=== PATIENT | female | born 1945 | race Caucasian/White ===

== ENCOUNTER 2016-07-01 17:13 | Inpatient (IN) | payer MEDICARE, MEDICAID ==
[~2016-07-01] VITALS: Ht 162.6 cm; Wt 92.1 kg
[~2016-07-01 17:13] MED LIST: ASCO100083 PO; ASP81CT PO; ASPI-586 PO; ATN50T; ATOR40TA PO; ATOR40TA70 PO; CIPR500T4 PO; CLPD75T PO; DIAZ5TAB3; DIAZ5TAB3 PO; DIAZ5TAB49; GARL1CAP7 PO; GARLIC CAPSULE PO; HYDR-3812 PO; METO-272 PO; METO-274 PO; METO100T5 PO; MTR500T PO; NAPR550T PO; NTR.4SL SL; OMEG-11 PO; OMG1KC PO; PRM25T PO; PRV20T; ROSU10TA12 PO; RT-COMBINH IH; SERT25TA PO; SERT25TA5 PO; VITA400T9 PO
--- OUTSIDE RECORDS SUMMARY | 2016-07-01 17:19 | XMS REPORT | Continuity of Care Document ---
Author Author [facility] Organization [facility] Address Unknown Phone Unavailable Care Team Providers Care Farm Equipment Operator Name Role Phone TORSTEN AQUINO DO PCP Insurance Providers Payer Name Policy Number Subscriber Name Relationship Wps Medicare [id number] CrocheronDc E 18 Self / Same As Patient Medicaid [place] [id number] Dc Ingram 18 Self / Same As Patient Advance Directives Directive Response Recorded Date/Time Advance Directives Yes 10/24/14 4:41pm Health Care Power of Development Executive No 10/24/14 4:41pm Organ Donor Yes 10/24/14 4:41pm Resuscitation Status Full Code 10/24/14 4:41pm Problems No known problems or medical conditions. Medications Medication Dose Route Sig Days/Qty Instructions Order Date Discontinued Date Status Aspirin 81 Mg PO BEDTIME 08/05/08 Active Clopidogrel Bisulfate 75 Mg PO DAILY 08/05/08 Active Fish Oil 1,000 Mg PO TWICE A DAY 08/05/08 10/27/14 Discontinued Nitroglycerin 0.4 Mg SL NEEDED PRN CHEST PAIN 08/05/08 Active Rosuvastatin Calcium 1 Each PO BEDTIME 01/13/12 10/24/14 Discontinued Metoprolol Succinate (Toprol Xl) 100 Mg PO DAILY 01/13/12 Active Diazepam (Valium) 2.5 Mg PO BEDTIME PRN ANXIETY TAKES 1/2 (5MG) TABLET 01/13/12 Active Ipratropium/Albuterol Sulfate 1 Puff IH GIVE EVERY 8 HRS ON SCHEDULE PRN SHORTNESS OF BREATH 01/13/12 Active Atorvastatin Calcium 40 Mg PO BEDTIME 1 Qty 10/24/14 10/27/14 Discontinued Sertraline HCl 25 Mg PO DAILY 1 Qty 10/24/14 10/27/14 Discontinued Atorvastatin Calcium 40 Mg PO BEDTIME 10/27/14 Active [place]-3S/Dha/Epa/Fish Oil 1,200 Mg PO TWICE A DAY 10/27/14 Active Sertraline Hcl 25 Mg PO 1500 10/27/14 Active Vitamin E Mixed 400 Unit PO BEDTIME 10/27/14 Active Ascorbic Acid 1,000 Mg PO BEDTIME 10/27/14 Active [Garlic Capsule] 1 Tab PO BEDTIME 10/27/14 Active Metronidazole 500 Mg PO THREE TIMES A DAY 21 Qty 10/28/14 Active Ciprofloxacin 500 Mg PO TWICE A DAY 14 Qty 10/28/14 Active Promethazine Hcl 25 Mg PO THREE TIMES A DAY PRN NAUSEA 21 Qty 10/28/14 Active Social History Social History Problem Response Recorded Date/Time Alcohol Use Denies Use 10/24/2014 4:43pm Recreational Drug Use No 10/24/2014 4:43pm Recent Foreign Travel No 10/24/2014 5:35pm Recent Infectious Disease Exposure No 10/24/2014 4:43pm Hospitalization with Isolation Denies 10/28/2014 1:32pm Smoking Status Former Smoker 10/24/2014 4:46pm Query Response Start Date Stop Date Smoking Status Former Smoker Hospital Discharge Instructions Patient Instructions Physician Instructions Plan of Care/Instructions/FU: Patient to be seen in office this Monday morning at 11 a.m. Patient to be given diverticulitis diet. Patient to continue with her home medicines and antibiotics Activity as Tolerated: Yes Discharge Diet: Other Diet (Diverticulitis diet) Care Plan Patient Instructions:: Patient to be seen in office this Monday morning at 11 a.m.Patient to be given diverticulitis diet.Patient to continue with her home medicines and antibiotics Plan of Care Discharge Date 10/28/14 11:48am Disposition 30 STILL A PATIENT Instructions/Education Provided Acute Abdominal Pain (ED) Diverticulitis Diet (ED) Diverticulitis Diet (DC) Diverticulitis Diet (GEN) Prescriptions See Medications Section Referrals FRANCINEABDIAZIZ Sarah (Unspecified) 11/18/14 Address: [address] [place] [id number] Reason(s) for Referral: 9:30 AM TORSTEN AQUINO DO (Unspecified) 10/31/14 Address: [place] [phone] Reason(s) for Referral: 11:00 AM Functional Status No functional status results. Allergies, Adverse Reactions, Alerts Allergen Type Severity Reaction Status Last Updated Morphine Allergy Unknown Active 08/05/08 Immunizations Name Given Type Date of Pneumonia Vaccine 08/26/13 Historical Vital Signs Acute Vital Signs Vital Response Date/Time Temperature (Fahrenheit) 98.1 degrees F (97.6 - 99.5) Temperature (Calculated Celsius) 36.25685 degrees C (36.4 - 37.5) Temperature Source Temporal Pulse Rate (adult) 110 bpm (60 - 90) Respiratory Rate 20 bpm (12 - 24) O2 Sat by Pulse Oximetry 90 % (88 - 100) Blood Pressure 152/86 mm Hg Pain Pain Intensity 2 Height (Feet) 5 feet Height (Inches) 4.00 inches Height (Calculated Centimeters) 162.876980 cm Weight (Pounds) 182 pounds Weight (Calculated Grams) 92299.812 gm Weight (Calculated Kilograms) 82.640198 kilograms Calculated BMI 31.24 Results Laboratory Results Test Name Result Units Flags Reference Collection Date/Time Result Date/ Time Comments White Blood Count 10.5 10^3/uL 4.3-11.0 10/28/2014 4:38am 10/28/2014 5: 07am Red Blood Count 4.47 10^6/uL 4.35-5.85 10/28/2014 4:38am 10/28/2014 5: 07am Hemoglobin 12.2 G/DL 11.5-16.0 10/28/2014 4:38am 10/28/2014 5:07am Hematocrit 37 % 35-52 10/28/2014 4:3810/28/2014 5:07am Mean Corpuscular Volume 84 FL 80-99 10/28/2014 4:3810/28/2014 5: 07am Mean Corpuscular Hemoglobin 27 PG 25-34 10/28/2014 4:3810/28/2014 5: 07am Mean Corpuscular Hemoglobin Concent 33 G/DL 32-36 10/28/2014 4:38 5:07am Red Cell Distribution Width 14.7 % H 10.0-14.5 10/28/2014 4:382014 5:07am Platelet Count 341 10^3/uL 130-400 10/28/2014 4:3810/28/2014 5:07am Mean Platelet Volume 10.1 FL 7.4-10.4 10/28/2014 4:10/28/2014 5: 07am Neutrophils (%) (Auto) 77 % H 42-75 10/25/2014 5:10/25/2014 5:50am Lymphocytes (%) (Auto) 14 % 12-44 10/25/2014 5:10/25/2014 5:50am Monocytes (%) (Auto) 8 % 0-12 10/25/2014 5:10/25/2014 5:50am Eosinophils (%) (Auto) 1 % 0-10 10/25/2014 5:10/25/2014 5:50am Basophils (%) (Auto) 0 % 0-10 10/25/2014 5:10/25/2014 5:50am Neutrophils # (Auto) 7.7 X 10^3 1.8-7.8 10/25/2014 5:10/25/2014 5: 50am Lymphocytes # (Auto) 1.4 X 10^3 1.0-4.0 10/25/2014 5:10/25/2014 5: 50am Monocytes # (Auto) 0.8 X 10^3 0.0-1.0 10/25/2014 5:10/25/2014 5: 50am Eosinophils # (Auto) 0.1 10^3/uL 0.0-0.3 10/25/2014 5:10/25/2014 5 :50am Basophils # (Auto) 0.0 10^3/uL 0.0-0.1 10/25/2014 5:12am 10/25/2014 5: 50am Urine Color YELLOW 10/24/2014 3:20pm 10/24/2014 3:40pm Urine Clarity CLEAR 10/24/2014 3:20pm 10/24/2014 3:40pm Urine pH 6 5-9 10/24/2014 3:20pm 10/24/2014 3:40pm Urine Specific [place] 1.010 * 1.016-1.022 10/24/2014 3:20pm 2014 3:40pm Urine Protein NEGATIVE NEGATIVE 10/24/2014 3:20pm 10/24/2014 3:40pm Urine Glucose (UA) NEGATIVE NEGATIVE 10/24/2014 3:pm 10/24/2014 3: 40pm Urine RBC (Auto) NEGATIVE NEGATIVE 10/24/2014 3:20pm 10/24/2014 3: 40pm Urine Ketones NEGATIVE NEGATIVE 10/24/2014 3:pm 10/24/2014 3:40pm Urine Nitrite NEGATIVE NEGATIVE 10/24/2014 3:20pm 10/24/2014 3:40pm Urine Bilirubin NEGATIVE NEGATIVE 10/24/2014 3:20pm 10/24/2014 3: 40pm Urine Urobilinogen NORMAL MG/DL NORMAL 10/24/2014 3:20pm 10/24/2014 3: 40pm Urine Leukocyte Esterase 3+ * NEGATIVE 10/24/2014 3:pm 10/24/2014 3: 40pm Urine RBC NONE /HPF 10/24/2014 3:20pm 10/24/2014 3:40pm Urine WBC 5-10 /HPF * 10/24/2014 3:20pm 10/24/2014 3:40pm Urine Bacteria TRACE /HPF 10/24/2014 3:20pm 10/24/2014 3:40pm Urine Squamous Epithelial Cells 0-2 /HPF 10/24/2014 3:20pm 2014 3:40pm Urine Crystals NONE /LPF 10/24/2014 3:20pm 10/24/2014 3:40pm Urine Casts NONE /LPF 10/24/2014 3:20pm 10/24/2014 3:40pm Urine Mucus NEGATIVE /LPF 10/24/2014 3:20pm 10/24/2014 3:40pm Urine Culture Indicated YES 10/24/2014 3:20pm 10/24/2014 3:40pm WBC>5 Sodium Level 139 MMOL/L 135-145 10/28/2014 4:3010/28/2014 5:35am Potassium Level 3.8 MMOL/L 3.6-5.0 10/28/2014 4:3010/28/2014 5:35am Chloride Level 110 MMOL/L H 98-107 10/28/2014 4:3010/28/2014 5:35am Carbon Dioxide Level 21 MMOL/L 21-32 10/28/2014 4:3010/28/2014 5: 35am Blood Urea Nitrogen 3 MG/DL L 7-18 10/28/2014 4:3010/28/2014 5:35am Creatinine 0.73 MG/DL 0.60-1.30 10/28/2014 4:3010/28/2014 5:35am BUN/Creatinine Ratio 4 10/28/2014 4:3010/28/2014 5:35am Estimat Glomerular Filtration Rate > 60 10/28/2014 4:302014 5:35am GFR INTERPRETIVE DATA UNITS FOR ESTIMATED GFR (eGFR): mL/min/1.73 M2 REFERENCE RANGE FOR ESTIMATED GFR (eGFR) eGFR NORMAL eGFR >60 MODERATELY DECREASED eGFR 30-59 SEVERLY DECREASED eGFR 15-29 KIDNEY FAILURE <15 (OR DIALYSIS) Glucose Level 132 MG/DL H 70-105 10/28/2014 4:3010/28/2014 5:35am Calcium Level 8.4 MG/DL L 8.5-10.1 10/28/2014 4:3010/28/2014 5:35am Total Bilirubin 0.3 MG/DL 0.1-1.0 10/28/2014 4:3010/28/2014 5:35am Alkaline Phosphatase 77 U/L 40-136 10/28/2014 4:3010/28/2014 5:35am Aspartate Amino Transf (AST/SGOT) 18 U/L 5-34 10/28/2014 4:302014 5:35am Alanine Aminotransferase (ALT/SGPT) 16 U/L 0-55 10/28/2014 4:3010/28 5:35am Total Protein 5.7 G/DL L 6.4-8.2 10/28/2014 4:30am 10/28/2014 5:35am Albumin 3.0 G/DL L 3.2-4.5 10/28/2014 4:30am 10/28/2014 5:35am Stool Occult Blood Immunoassay POSITIVE * NEGATIVE 10/25/2014 6:30pm 7:17pm Procedures No known history of procedures. Encounters Encounter Location Date/Time Discharged Inpatient Via [facility] 10/24/14 3:45pm
[2016-07-01] MEDS ORDERED: NS IV 1000 ML 1,000 ML IV ONE (17:51)
[2016-07-01 18:07] LABS: BASOPHILS % (AUTO) 0 % (0-10); EOSINOPHILS # (AUTO) 0.1 10^3/uL (0.0-0.3); EOSINOPHILS % (AUTO) 0 % (0-10); LYMPHOCYTES # (AUTO) 0.8 X 10^3 (1.0-4.0); LYMPHOCYTES % (AUTO) 5 % (12-44); MEAN CORPUSCULAR HEMOGLOBIN 28 PG (25-34); MEAN CORPUSCULAR HGB CONC 34 G/DL (32-36); MEAN CORPUSCULAR VOLUME 83 FL (80-99); MEAN PLATELET VOLUME 10.4 FL (7.4-10.4); MONOCYTES # (AUTO) 0.9 X 10^3 (0.0-1.0); MONOCYTES % (AUTO) 6 % (0-12); NEUTROPHILS # (AUTO) 13.8 X 10^3 (1.8-7.8); NEUTROPHILS % (AUTO) 89 % (42-75); PLATELET COUNT 346 10^3/uL (130-400); RED BLOOD COUNT 5.05 10^6/uL (4.35-5.85); RED CELL DISTRIBUTION WIDTH 15.5 % (10.0-14.5); WHITE BLOOD COUNT 15.6 10^3/uL (4.3-11.0)
[2016-07-01] MEDS ORDERED: ACETAMINOPHEN 500 MG TAB (TYLENOL) PO ONE (18:15)
[2016-07-01] MEDS ORDERED: ONDANSETRON 4 MG/2 ML (SDV) Z0FRAN IVP ONE (18:15)
[2016-07-01] MEDS ORDERED: IBUPROFEN 800 MG (MOTRIN) TAB PO ONE (18:15)
[2016-07-01 18:17] LABS: INR 1.1 (0.8-1.4); PROTHROMBIN TIME PATIENT 13.7 SEC (12.2-14.7)
[2016-07-01 18:24] LABS: BAND NEUTROPHILS 12 %; LYMPHOCYTES % (MANUAL) 6 %; NEUTROPHILS % (MANUAL) 77 %
[2016-07-01 18:24] LABS: BILIRUBIN,URINE NEGATIVE (NEGATIVE); KETONES,URINE NEGATIVE (NEGATIVE); LEUKOCYTE ESTERASE ,URINE 1+ (NEGATIVE); NITRITE,URINE NEGATIVE (NEGATIVE); PH,URINE 6 (5-9); PROTEIN,URINE NEGATIVE (NEGATIVE); UROBILINOGEN,URINE NORMAL (NORMAL)
[2016-07-01 18:25] LABS: BASOPHILS % (MANUAL) 1 %; EOSINOPHILS % (MANUAL) 0 %
[2016-07-01 18:28] LABS: ALANINE AMINOTRANSFERASE 37 U/L (0-55); ALBUMIN 3.9 G/DL (3.2-4.5); ANION GAP 11 MMOL/L (5-14); ASPARTATE AMINO TRANSFERASE 39 U/L (5-34); BILIRUBIN,TOTAL 0.4 MG/DL (0.1-1.0); BLOOD UREA NITROGEN 15 MG/DL (7-18); BUN/CREATININE RATIO 13; CALCIUM 8.7 MG/DL (8.5-10.1); CARBON DIOXIDE 21 MMOL/L (21-32); CHLORIDE 104 MMOL/L (98-107); CREATINE KINASE 109 U/L (29-168); CREATININE SERUM 1.15 MG/DL (0.60-1.30); GFR ESTIMATED 46; GLUCOSE 118 MG/DL (70-105); MAGNESIUM 1.4 MG/DL (1.8-2.4); SODIUM 136 MMOL/L (135-145); TOTAL PROTEIN 6.7 G/DL (6.4-8.2)
[2016-07-01 18:34] LABS: TROPONIN I < 0.30 NG/ML (<0.30)
--- NOTE | 2016-07-01 19:00 | Diagnostic Imaging Report ---
INDICATION: Fever and shortness of breath COMPARISON: 06/06/2013 FINDINGS: Upright portable view of the chest is obtained. Heart size is enlarged but unchanged. There is no pulmonary vascular congestion. No pneumothorax or pleural fluid is suspected. There are findings suggestive of COPD which have increased from the prior study. No focal pneumonia is suspected. IMPRESSION: Increasing findings of COPD. Stable cardiomegaly without failure. No acute cardiopulmonary abnormality is suspected. Dictated by: Dictated on workstation # [id number]
--- NOTE | 2016-07-01 19:03 | ED General ---
General Chief Complaint: Abdominal/GI Problems Stated Complaint: VOMITING/DIARRHEA/FEVER Nursing Triage Note: N/V/D ET FEVER OF [address] 1400 TODAY. PRODUCTIVE COUGH STARTING YESTERDAY. Nursing Sepsis Screen: Possible Sepsis Risk Source of Information: Patient History of Present Illness Time Seen by Provider: 17:50 Initial Comments PT ARRIVES VIA POV FROM HOME C/O FEVER OF 105 AT 1400 TODAY STATES SHE STARTED FEELING BAD YESTERDAY BUT IS MUCH WORSE TODAY STARTED WITH A PRODUCTIVE COUGH YESTERDAY TODAY HAS FELT SHORT OF BREATH AND BEGAN RUNNING A FEVER C/O NAUSEA AND VOMITED X 2 TODAY, DIARRHEA X 2 TODAY C/O LOWER ABDOMINAL/SUPRAPUBIC PAIN HAS CHRONIC URINARY FREQUENCY BUT NO PAIN ON URINATION C/O CHEST TIGHTNESS PT RECENTLY TREATED FOR PRESUMED DIVERTICULITIS /COLITIS WITH CIPRO AND FLAGYL-- FINISHED MEDICATIONS 1 WEEK AGO, AND WAS DOING BETTER. SAW DR. AQUINO 1 WEEK AGO AND HE CLEARED HER TO START ON SOFT DIET AT THAT TIME. HAS HAD DIVERTICULITIS IN THE PAST, NO TESTS DONE FOR THIS RECENT EPISODE. PCP: DR. AQUINO Allergies and Home Medications Allergies Coded Allergies: morphine (Verified Allergy, Unknown, 08/05/08) Home Medications Aspirin 81 Mg Tablet.dr 81 MG PO DAILY (Reported) Atorvastatin Calcium 40 Mg Tablet 40 MG PO HS (Reported) Clopidogrel Bisulfate 75 Mg Tab 75 MG PO DAILY (Reported) Diazepam 5 Mg Tablet 2.5-5 MG PO HS (Reported) TAKES 1/2 TO 1 (5MG) TABLET Garlic 1 Each Capsule 1 CAP PO HS (Reported) Ipratropium/Albuterol Sulfate 14.7 Gm Aer.w.adap 1 PUFF IH TID PRN PRN SHORTNESS OF BREATH (Reported) Metoprolol Succinate 50 Mg Tab.er.24h 50 MG PO HS (Reported) Nitroglycerin 0.4 Mg Subl 0.4 MG SL UD PRN PRN CHEST PAIN (Reported) [place]-3S/Dha/Epa/Fish Oil 1 Each Capsule 1,200 MG PO BID (Reported) Vitamin E Mixed 400 Unit Tablet 400 UNIT PO DAILY (Reported) Constitutional: see HPI fever malaise weakness EENTM: no symptoms reported Respiratory: see HPI cough short of breath Cardiovascular: chest pain Gastrointestinal: see HPI abdominal pain diarrhea loss of appetite nausea vomiting Genitourinary: see HPI frequency Musculoskeletal: no symptoms reportedNo back pain Skin: no symptoms reported Psychiatric/Neurological: No Symptoms ReportedDenies Headache Hematologic/Lymphatic: No Symptoms Reported Immunological/Allergic: no symptoms reported Past Lwwtfko-Afzlaf-Smuhsl Hx Patient Social History Alcohol Use: Denies Use Recreational Drug Use: No Smoking Status: Never a Smoker Former Smoker/When Quit: Mar 24, 2005 Recent Foreign Travel: No Contact w/Someone Who Travel: No Recent Infectious Disease Expo: No Immunizations Up To Date Date of Pneumonia Vaccine: Mar 19, 2015 Date of Influenza Vaccine: Mar 10, 2015 Surgeries HX Surgeries: Yes (CATARACTS) Surgeries: Adenoidectomy, Appendectomy, Coronary Stent, Eye Surgery, Gallbladder, Hysterectomy, Tonsillectomy Respiratory Hx Respiratory Disorders: Yes Respiratory Disorders: COPD Cardiovascular Hx Cardiac Disorders: Yes (stents x5, ) Cardiac Disorders: Coronary Artery Disease, High Cholesterol, Hypertension Neurological Hx Neurological Disorders: No Reproductive System Hx Reproductive Disorders: No Genitourinary Hx Genitourinary Disorders: No Gastrointestinal Hx Gastrointestinal Disorders: Yes Gastrointestinal Disorders: Colitis, Diverticulosis Musculoskeletal Hx Musculoskeletal Disorders: Yes Musculoskeletal Disorders: Arthritis Endocrine Hx Endocrine Disorders: No HEENT HX ENT Disorders: Yes (upper dentures, cataract implants) Cancer Hx Cancer: No Psychosocial Hx Psychiatric Problems: Yes Behavioral Health Disorders: Anxiety, Depression Integumentary HX Skin/Integumentary Disorder: No Blood Transfusions Hx Blood Disorders: No Family Medical History Significant Family History: No Pertinent Family Hx Physical Exam Vital Signs Vital Sign - Last 12Hours 07/01/16 07/01/16 17:45 18:01 Temp 103.5 Pulse 114 Resp 20 B/P 165/75 Pulse Ox 84 O2 Delivery Room Air O2 Flow Rate 4 Capillary Refill : Less Than 3 Seconds General Appearance: Mild Distress (MILDLY DYSPNEIC) Obese HEENT: PERRL/EOMI TMs Normal Normal ENT Inspection Pharynx Normal Neck: Full Range of Motion Normal Inspection Non Tender Supple Respiratory: Decreased Breath Sounds (IN BASES) Other (MILDLY DYSPNEIC, BUT ABLE TO TALK IN FULL SENTENCES. ) Cardiovascular: No Edema No JVD No Murmur Normal Peripheral Pulses Tachycardia (MILD 110'S) Gastrointestinal: Normal Bowel Sounds No Organomegaly No Pulsatile Mass Soft Tenderness (SUPRAPUBIC) Back: No CVA Tenderness Extremity: Normal Capillary Refill Normal Inspection Normal Range of Motion Non Tender No Calf Tenderness No Pedal Edema Neurologic/Psychiatric: Alert Oriented x3 No Motor/Sensory Deficits Normal Mood/Affect commercial lines account assistant II-XII Norm as Tested Skin: Normal Color Warm/Dry Progress/Results/Core Measures Results/Orders Lab Results Laboratory Tests Test 07/01/16 17:55 07/01/16 18:18 Range/Units Activated Partial Thromboplast Time 28 24-35 SEC Alanine Aminotransferase (ALT/SGPT) 37 0-55 U/L Albumin 3.9 3.2-4.5 G/DL Alkaline Phosphatase 99 40-136 U/L Anion Gap 11 5-14 MMOL/L Aspartate Amino Transf (AST/SGOT) 39 H 5-34 U/L B-Type Natriuretic Peptide 85.1 <100.0 PG/ML BUN/Creatinine Ratio 13 Band Neutrophils 12 % Basophils # (Auto) 0.0 0.0-0.1 10^3/uL Basophils % (Manual) 1 % Basophils (%) (Auto) 0 0-10 % Blood Morphology Comment NORMAL Blood Urea Nitrogen 15 7-18 MG/DL Calcium Level 8.7 8.5-10.1 MG/DL Carbon Dioxide Level 21 21-32 MMOL/L Chloride Level 104 98-107 MMOL/L Creatine Kinase MB 1.7 <6.6 NG/ML Creatinine 1.15 0.60-1.30 MG/DL Eosinophils # (Auto) 0.1 0.0-0.3 10^3/uL Eosinophils % (Manual) 0 % Eosinophils (%) (Auto) 0 0-10 % Estimat Glomerular Filtration Rate 46 Glucose Level 118 H 70-105 MG/DL Hematocrit 42 35-52 % Hemoglobin 14.1 11.5-16.0 G/DL INR Comment 1.1 0.8-1.4 Lactic Acid Level 1.7 0.5-2.0 MMOL/L Lymphocytes # (Auto) 0.8 L 1.0-4.0 X 10^3 Lymphocytes % (Manual) 6 % Lymphocytes (%) (Auto) 5 L 12-44 % Magnesium Level 1.4 L 1.8-2.4 MG/DL Mean Corpuscular Hemoglobin 28 25-34 PG Mean Corpuscular Hemoglobin Concent 34 32-36 G/DL Mean Corpuscular Volume 83 80-99 FL Mean Platelet Volume 10.4 7.4-10.4 FL Monocytes # (Auto) 0.9 0.0-1.0 X 10^3 Monocytes % (Manual) 4 % Monocytes (%) (Auto) 6 0-12 % Neutrophils # (Auto) 13.8 H 1.8-7.8 X 10^3 Neutrophils % (Manual) 77 % Neutrophils (%) (Auto) 89 H 42-75 % Platelet Count 346 130-400 10^3/uL Potassium Level 4.0 3.6-5.0 MMOL/L Prothrombin Time 13.7 12.2-14.7 SEC Red Blood Count 5.05 4.35-5.85 10^6/uL Red Cell Distribution Width 15.5 H 10.0-14.5 % Sodium Level 136 135-145 MMOL/L Total Bilirubin 0.4 0.1-1.0 MG/DL Total Creatine Kinase 109 29-168 U/L Total Protein 6.7 6.4-8.2 G/DL Troponin I < 0.30 <0.30 NG/ML White Blood Count 15.6 H 4.3-11.0 10^3/uL Urine Bacteria NONE /HPF Urine Bilirubin NEGATIVE NEGATIVE Urine Casts NONE /LPF Urine Clarity CLEAR Urine Color YELLOW Urine Crystals NONE /LPF Urine Culture Indicated NO Urine Glucose (UA) NEGATIVE NEGATIVE Urine Ketones NEGATIVE NEGATIVE Urine Leukocyte Esterase 1+ H NEGATIVE Urine Mucus NEGATIVE /LPF Urine Nitrite NEGATIVE NEGATIVE Urine Protein NEGATIVE NEGATIVE Urine RBC NONE /HPF Urine RBC (Auto) NEGATIVE NEGATIVE Urine Specific [place] 1.010 L 1.016-1.022 Urine Squamous Epithelial Cells 2-5 /HPF Urine Urobilinogen NORMAL NORMAL MG/DL Urine WBC 2-5 /HPF Urine pH 6 5-9 Micro Results Microbiology 07/01/16 Influenza Types A,B Antigen (RACHEL) - Final, Complete My Orders Orders-ROLAND CLAY DO Saline Lock/Iv-Start (07/01/16 17:51) Ekg Tracing (07/01/16 17:51) O2 (07/01/16 17:51) Monitor-Rhythm Ecg Trace Only (07/01/16 17:51) Cbc With Automated Diff (07/01/16 17:51) Comprehensive Metabolic Panel (07/01/16 17:51) Lactic Acid Analyzer (07/01/16 17:51) Ua Culture If Indicated (07/01/16 17:51) Blood Culture (07/01/16 17:51) Influenza A And B Antigens (07/01/16 17:51) Chest 1 View, Ap/Pa Only (07/01/16 17:51) Saline Lock/Iv-Start (07/01/16 17:51) Ns Iv 1000 Ml (Sodium Chloride 0.9%) (07/01/16 17:51) BNP (07/01/16 17:51) Creatine Kinase (07/01/16 17:51) Creatine Kinase Mb (07/01/16 17:51) Magnesium (07/01/16 17:51) Protime With Inr (07/01/16 17:51) Partial Thromboplastin Time (07/01/16 17:51) Troponin I (07/01/16 17:51) Ondansetron Injection (Zofran Injectio (07/01/16 18:15) Acetaminophen Tablet (Tylenol Tablet) (07/01/16 18:15) Ibuprofen Tablet (Motrin Tablet) (07/01/16 18:15) Manual Differential (07/01/16 17:55) Ct Chest/Abdomen/Pelvis Wo (07/01/16 18:38) Ceftriaxone Injection (Rocephin Injectio (07/01/16 19:45) Ceftriaxone Injection (Rocephin Injectio (07/01/16 19:54) Ns (Ivpb) (Sodium Chloride 0.9% Ivpb Bag (07/01/16 19:54) Medications Given in ED Current Medications Medications Dose Ordered Sig/Michael Route Start Time Stop Time Status Last Admin Dose Admin Acetaminophen 1,000 mg ONCE ONCE PO 07/01/16 18:15 07/01/16 18:16 DC 07/01/16 18:35 1,000 MG Ibuprofen 800 mg ONCE ONCE PO 07/01/16 18:15 07/01/16 18:16 DC 07/01/16 18:35 800 MG Ondansetron HCl 4 mg ONCE ONCE IVP 07/01/16 18:15 07/01/16 18:16 DC 07/01/16 18:18 4 MG Sodium Chloride 1,000 ml @ 0 mls/hr Q0M ONCE IV 07/01/16 17:51 07/01/16 17:53 DC 07/01/16 18:06 1,000 MLS/HR Vital Signs/I&O Vital Sign - Last 12Hours 07/01/16 07/01/16 07/01/16 17:45 18:01 20:00 Temp 103.5 100.5 Pulse 114 95 Resp 20 20 B/P 165/75 120/43 Pulse Ox 84 95 O2 Delivery Room Air Nasal Cannula Nasal Cannula O2 Flow Rate 4 3 Blood Pressure Mean: 105 Progress Note : Progress Note O2 SATS 84% ON ROOM AIR ON ARRIVAL--UP TO 90'S ON O2 AT 4L/NC RESPIRATIONS IMPROVED AFTER NEBULIZER TREATMENTS NO DETERIORATION IN PT'S CONDITION DURING ER STAY ECG Initial ECG Impression Time: 17:57 Initial ECG Rate: 111 Initial ECG Rhythm: S.Tach Initial ECG Impression: Nonspecific Changes Initial ECG Comparisson: Unchanged Diagnostic Imaging Comments CXR--NO ACUTE PROCESS CT CHEST/ABDOMEN/PELVIS--NO ACUTE PROCESS, NON-ACUTE CHANGES --PER RADIOLOGIST REPORT @ 1935 Reviewed: Reviewed by Me Departure Communication Progress Notes 1924--SPOKE WITH DR. AQUINO, ACCEPTS PT FOR ADMIT. Impression Impression: Primary Impression: Sepsis Additional Impressions: BRONCHTIS WITH HYPOXIA ABDOMINAL PAIN WITH NAUSEA/VOMITING/DIARRHEA Chest pain Disposition: ADMITTED INPATIENT Condition: Improved Decision to Admit Reason: Admit from ER (General) Decision to Admit/Date: Jul 01, 2016 Time/Decision to Admit Time: 19:25 Departure-Patient Inst. Referrals: TORSTEN AQUINO DO (PCP/Family) Primary Care Physician ROLAND CLAY DO Jul 01, 2016 19:03
--- NOTE | 2016-07-01 19:27 | Diagnostic Imaging Report ---
PROCEDURE: CT chest, abdomen, and pelvis without contrast. TECHNIQUE: Multiple contiguous axial images were obtained through the chest, abdomen, and pelvis without the use of intravenous contrast. INDICATION: Chest tightness and abdominal pain. COMPARISON: CT abdomen and pelvis of 10/24/2014. CT CHEST FINDINGS: Visualized thyroid is normal. No supraclavicular or axillary lymphadenopathy. Mildly enlarged lower right paratracheal lymph node measuring 1.4 x 1.6 cm. No additional mediastinal lymphadenopathy. No discrete hilar lymphadenopathy or juxtaphrenic lymphadenopathy. Heart is normal in size without pericardial effusion. Coronary artery calcifications and/or stents are present. Normal caliber thoracic aorta with mild atherosclerotic disease. No pleural effusion or pneumothorax. No pulmonary mass, nodule, or consolidation. There is smooth interlobular septal thickening within the lung bases and lung apices, which may be chronic in nature or could represent early interstitial edema. No concerning osseous lesions within the thorax. IMPRESSION: 1. Scattered smooth interlobular septal thickening is likely due to chronic changes. In the appropriate setting, this could be seen with mild interstitial pulmonary edema. 2. No consolidation to indicate pneumonia. 3. Single enlarged mediastinal lymph node is nonspecific and could be reactive in nature. CT ABDOMEN AND PELVIS FINDINGS: Evaluation of the abdominal viscera is limited without IV contrast. No free intraperitoneal air or fluid. The liver, spleen, and pancreas are normal. Cholecystectomy. No biliary duct dilatation. Adrenals are normal. No renal or ureteral calculi. Vascular calcifications are present in the right renal pelvis. Urinary bladder is distended without wall thickening. Status post hysterectomy. Sigmoid and descending colon diverticulosis without diverticulitis. No dilated small bowel loops to indicate obstruction. Normal caliber atherosclerotic aorta. No abdominal or pelvic lymphadenopathy. Small fat-containing umbilical hernia. No concerning osseous lesions in the abdomen or pelvis. Degenerative facet disease is present in the lower lumbar spine. IMPRESSION: 1. No acute process within the abdomen or pelvis. 2. Colonic diverticulosis without diverticulitis. Dictated by: Dictated on workstation # [id number]
[2016-07-01] MEDS ORDERED: NORMAL SALINE IV ONE (19:45)
[2016-07-01] MEDS ORDERED: CEFTRIAXONE IV ONE (19:45)
[2016-07-01] MEDS ORDERED: NS (IVPB) 50 ML ONE (19:54)
[2016-07-01] MEDS ORDERED: cefTRIAXone 1 GM (ROCEPHIN) VIAL ONE (19:54)
[2016-07-01 22:00] VITALS: BP 114/56
[2016-07-01 22:15] VITALS: BP 114/52
[2016-07-01 22:30] VITALS: BP 88/51
[2016-07-01 22:45] VITALS: BP 97/49
[2016-07-01 23:00] VITALS: BP 99/48
[2016-07-01] MEDS: ONDANSETRON 4 MG/2 ML (SDV) Z0FRAN IV PRN (23:11)
[2016-07-01] MEDS ORDERED: NITROGLYCERIN SUBLINGUAL 0.4 MG TAB (NITROSTAT) SL PRN (23:15)
[2016-07-01] MEDS ORDERED: IBUPROFEN 800 MG (MOTRIN) TAB PO PRN (23:15)
[2016-07-01] MEDS ORDERED: 1/2 NS IV SOLUTION 1,000 ML IV SCH (23:15)
[2016-07-01 23:30] VITALS: BP 94/41
[2016-07-02] VITALS (18 sets, daily range): BP systolic 88–172; BP diastolic 48–87
[2016-07-02] MEDS: NS IV 1000 ML 1,000 ML IV SCH ×7 (00:01→16:10)
[2016-07-02] MEDS ORDERED: NS IV 1000 ML 1,000 ML IV SCH (00:45)
[2016-07-02 00:56] LABS: MYOGLOBIN SERUM 111.6 NG/ML (10.0-92.0)
[2016-07-02] MEDS: RT-ALBUTEROL/IPRATROPIUM 3 ML (DUONEB) VIAL INH SCH ×4 (01:50→20:46)
[2016-07-02] MEDS: NOREPINEPHRINE 4 MG in D5W 250 ML IV SCH ×2 (04:14→14:05)
[2016-07-02 05:06] LABS: BASOPHILS % (AUTO) 0 % (0-10); EOSINOPHILS # (AUTO) 0.1 10^3/uL (0.0-0.3); EOSINOPHILS % (AUTO) 1 % (0-10); LYMPHOCYTES # (AUTO) 2.2 X 10^3 (1.0-4.0); LYMPHOCYTES % (AUTO) 24 % (12-44); MEAN CORPUSCULAR HEMOGLOBIN 28 PG (25-34); MEAN CORPUSCULAR HGB CONC 33 G/DL (32-36); MEAN CORPUSCULAR VOLUME 86 FL (80-99); MEAN PLATELET VOLUME 10.8 FL (7.4-10.4); MONOCYTES # (AUTO) 0.9 X 10^3 (0.0-1.0); MONOCYTES % (AUTO) 10 % (0-12); NEUTROPHILS % (AUTO) 65 % (42-75); PLATELET COUNT 276 10^3/uL (130-400); RED BLOOD COUNT 4.15 10^6/uL (4.35-5.85); RED CELL DISTRIBUTION WIDTH 15.6 % (10.0-14.5); WHITE BLOOD COUNT 9.2 10^3/uL (4.3-11.0)
[2016-07-02 05:27] LABS: ALANINE AMINOTRANSFERASE 27 U/L (0-55); ANION GAP 9 MMOL/L (5-14); ASPARTATE AMINO TRANSFERASE 30 U/L (5-34); BILIRUBIN,TOTAL 0.2 MG/DL (0.1-1.0); BLOOD UREA NITROGEN 16 MG/DL (7-18); BUN/CREATININE RATIO 18; CALCIUM 7.2 MG/DL (8.5-10.1); CARBON DIOXIDE 19 MMOL/L (21-32); CHLORIDE 113 MMOL/L (98-107); CHOLESTEROL 88 MG/DL (< 200); CREATININE SERUM 0.87 MG/DL (0.60-1.30); DIRECT LDL 52 MG/DL (1-129); GFR ESTIMATED > 60; GLUCOSE 106 MG/DL (70-105); MAGNESIUM 1.4 MG/DL (1.8-2.4); PHOSPHORUS 3.6 MG/DL (2.3-4.7); POTASSIUM 3.4 MMOL/L (3.6-5.0); SODIUM 141 MMOL/L (135-145); TOTAL PROTEIN 5.2 G/DL (6.4-8.2); TRIGLYCERIDES 74 MG/DL (<150); VLDL CHOLESTEROL 15 MG/DL (5-40)
[2016-07-02] MEDS ORDERED: KCL 20 MEQ TAB (K-DUR) PO ONE (05:45)
[2016-07-02] MEDS: MAGNESIUM 1 GM/100 ML IVPB 100 ML IV SCH ×2 (05:58→07:29)
[2016-07-02] MEDS ORDERED: POTASSIUM CL 10MEQ/50ML IVPB 50 ML IV SCH (06:00)
[2016-07-02] MEDS ORDERED: MAGNESIUM 1 GM/100 ML IVPB 100 ML IV SCH (06:00)
[2016-07-02] MEDS ORDERED: KCL 20 MEQ TAB (K-DUR) PO SCH (06:00)
--- NOTE | 2016-07-02 08:53 | History & Physicial ---
History of Present Illness History of Present Illness Reason for visit/HPI patient came out to the emergency room feeling terrible. Temperature 105. Nausea and vomiting 2 and diarrhea 2. Lower abdominal and suprapubic pain. Coughing and chest tightness. Onset last with the problems area Patient admitted for sepsis, respiratory problem and gastroenteritis Patient has history of heart disease and had stents Date of Admission Jul 01, 2016 at 19:25 I consulted on this patient on 07/02/16 08:48 Attending Physician Kurt Aquino DO Admitting Physician Kurt Aquino DO Consult Allergies and Home Medications Allergies Coded Allergies: morphine (Verified Allergy, Unknown, 08/05/08) Home Medications Aspirin 81 Mg Tablet.dr 81 MG PO DAILY (Reported) Atorvastatin Calcium 40 Mg Tablet 40 MG PO HS (Reported) Clopidogrel Bisulfate 75 Mg Tab 75 MG PO DAILY (Reported) Diazepam 5 Mg Tablet 2.5-5 MG PO HS (Reported) TAKES 1/2 TO 1 (5MG) TABLET Garlic 1 Each Capsule 1 CAP PO HS (Reported) Ipratropium/Albuterol Sulfate 14.7 Gm Aer.w.adap 1 PUFF IH TID PRN PRN SHORTNESS OF BREATH (Reported) Metoprolol Succinate 50 Mg Tab.er.24h 50 MG PO HS (Reported) Nitroglycerin 0.4 Mg Subl 0.4 MG SL UD PRN PRN CHEST PAIN (Reported) [place]-3S/Dha/Epa/Fish Oil 1 Each Capsule 1,200 MG PO BID (Reported) Vitamin E Mixed 400 Unit Tablet 400 UNIT PO DAILY (Reported) Past Azgkcum-Prajet-Ortoaw Hx Patient Social History Alcohol Use: Denies Use Recreational Drug Use: No Smoking Status: Former Smoker Former smoker/When Quit: Mar 24, 2005 Physical Abuse Screen: No Sexual Abuse: No Recent Foreign Travel: No Contact w/other who traveled: No Recent Hopitalizations: Yes Recent Infectious Disease Expo: No Immunizations Up To Date Date of Pneumonia Vaccine: Mar 19, 2015 Date of Influenza Vaccine: Mar 03, 2016 Surgeries HX Surgeries: Yes (CATARACTS) Surgeries: Adenoidectomy, Appendectomy, Coronary Stent, Eye Surgery, Gallbladder, Hysterectomy, Tonsillectomy Respiratory Hx Respiratory Disorders: Yes Cardiovascular Hx Cardiovascular Disorders: Yes (stents x5, ) Cardiac Disorders: Coronary Artery Disease, High Cholesterol, Hypertension Neurological Hx Neurological Disorders: No Reproductive System Hx Reproductive Disorders: No Genitourinary Hx Genitourinary Disorders: No Gastrointestinal Hx Gastrointestinal Disorders: Yes Gastrointestinal Disorders: Colitis, Diverticulosis Musculoskeletal Hx Musculoskeletal Disorders: Yes Musculoskeletal Disorders: Arthritis Endocrine Hx Endocrine Disorders: No HEENT HX ENT Disorders: Yes (upper dentures, cataract implants) Cancer Hx Cancer: No Psychosocial Hx Psychiatric Problems: Yes Behavioral Health Disorders: Anxiety, Depression Integumentary HX Skin/Integumentary Disorder: No Blood Transfusions Hx Blood Disorders: No Family Medical History Significant Family History: No Pertinent Family Hx Family Hx: Cardiovascular disease 19 FATHER G8 BROTHER Diabetes mellitus G8 SISTER G8 SISTER Hypercholesterolemia 19 FATHER 19 MOTHER G8 BROTHER G8 SISTER G8 SISTER Hypertension 19 FATHER 19 MOTHER G8 BROTHER G8 SISTER G8 SISTER Myocardial infarction 19 FATHER G8 BROTHER Neoplasm G8 SISTER (SPINAL CANCER ) Constitutional: fever malaise EENTM: no symptoms reported Respiratory: cough Cardiovascular: no symptoms reported Gastrointestinal: abdominal pain (RLQ) nausea vomiting Genitourinary: no symptoms reported Physical Exam Vital Signs Vital Sign - Last 12Hours 07/01/16 07/01/16 17:45 18:01 Temp 103.5 Pulse 114 Resp 20 B/P 165/75 Pulse Ox 84 O2 Delivery Room Air O2 Flow Rate 4 Capillary Refill : Less Than 3 Seconds General Appearance: No Apparent Distress WD/WN Eyes: Bilateral Eye Normal Inspection HEENT: Normal ENT Inspection Neck: Full Range of Motion Respiratory: No Accessory Muscle Use No Respiratory Distress Cardiovascular: Regular Rate, Rhythm No Murmur Gastrointestinal: Non Tender Soft Assessment/Plan Assessment and Plan febrile. Sepsis. Bronchitis with hypoxia. Abdominal discomfort Clinical Quality Measures DVT/VTE Risk/Contraindication: Risk Factor Score Per Nursin RFS Level Per Nursing on Admit: 4+=Very High KURT AQUINO DO Jul 02, 2016 08:53
[2016-07-02] MEDS ORDERED: ASPIRIN E.C. 325 MG (ECOTRIN) TABLET PO SCH (09:00)
[2016-07-02] MEDS: DOXYCYCLINE 100 MG/NS 100 ML IVPB IV SCH ×4 (09:04→21:41)
--- NOTE | 2016-07-02 09:57 | Diagnostic Imaging Report ---
EXAMINATION: Chest radiograph, portable AP view. DATE: July 02, 2016, at 0530 hours. INDICATION: 71-year-old female, sepsis, bronchitis, hypoxia, chest pain. COMPARISON: July 01, 2016. FINDINGS: Stable overall appearance of the cardiomediastinal silhouette. There is no identified pneumothorax. There is no identified large pleural effusion. There are limitations of the exam relating to patient body habitus. There is no identified interval focal airspace consolidation. There are slightly prominent bilateral interstitial opacities which appear unchanged. IMPRESSION: Unchanged slightly prominent bilateral interstitial opacities which may relate to mild pulmonary interstitial edema. Dictated by: Dictated on workstation # [id number]
[2016-07-02] MEDS ORDERED: RT-ALBUTEROL/IPRATROPIUM 3 ML (DUONEB) VIAL IH PRN (16:15)
[2016-07-02] MEDS ORDERED: [UNRECOGNIZED DRUG - OTHER] IH PRN ×2 (16:15→16:30)
[2016-07-02] MEDS ORDERED: NITROGLYCERIN SUBLINGUAL 0.4 MG TAB (NITROSTAT) SL PRN ×2 (16:15→16:30)
[2016-07-02] MEDS ORDERED: IPRATROPIUM IH PRN ×2 (16:15→16:30)
[2016-07-02] MEDS ORDERED: ALBUTEROL SULFATE IH PRN ×2 (16:15→16:30)
[2016-07-02] MEDS: DIAZEPAM 5 MG (VALIUM) TABLET PO SCH ×2 (17:09→21:47)
[2016-07-02] MEDS ORDERED: GARLIC PO SCH (21:00)
[2016-07-02] MEDS ORDERED: NON-FORMULARY MEDICATION 1 EA EA (Omega-3S/Dha/Epa/Fish Oil (Fish Oil 1,200 Mg Softgel) 1, PO SCH ×2 (21:00)
[2016-07-02] MEDS ORDERED: DOXYCYCLINE 100 MG INJ (VIBRAMYCIN) ONE (21:29)
[2016-07-02] MEDS ORDERED: NORMAL SALINE (BAXTER MINI) 50 ML IV ONE (21:30)
[2016-07-02] MEDS ORDERED: cefTRIAXone 1 GM (ROCEPHIN) VIAL ONE (21:30)
[2016-07-02] MEDS: ATORVASTATIN 40 MG (LIPITOR) TABLET PO SCH (21:42)
[2016-07-02] MEDS: meTOproloL SUCCINATE 50 MG (TOPROL XL) TAB PO SCH (21:43)
[2016-07-02] MEDS: cefTRIAXone 1 GM/NS 50 ML IVPB IV SCH ×2 (23:03)
[2016-07-02] MEDS: ONDANSETRON 4 MG/2 ML (SDV) Z0FRAN IV PRN (23:08)
[2016-07-03] VITALS (23 sets, daily range): BP systolic 121–168; BP diastolic 53–114
[2016-07-03] MEDS ORDERED: RT-ALBUTEROL/IPRATROPIUM 3 ML (DUONEB) VIAL ONE (02:05)
[2016-07-03] MEDS: RT-ALBUTEROL/IPRATROPIUM 3 ML (DUONEB) VIAL INH SCH ×6 (02:34→22:00)
[2016-07-03 05:09] LABS: BASOPHILS % (AUTO) 0 % (0-10); EOSINOPHILS % (AUTO) 0 % (0-10); LYMPHOCYTES # (AUTO) 0.9 X 10^3 (1.0-4.0); LYMPHOCYTES % (AUTO) 7 % (12-44); MEAN CORPUSCULAR HEMOGLOBIN 28 PG (25-34); MEAN CORPUSCULAR HGB CONC 32 G/DL (32-36); MEAN CORPUSCULAR VOLUME 87 FL (80-99); MEAN PLATELET VOLUME 10.8 FL (7.4-10.4); MONOCYTES # (AUTO) 0.7 X 10^3 (0.0-1.0); MONOCYTES % (AUTO) 6 % (0-12); NEUTROPHILS # (AUTO) 11.8 X 10^3 (1.8-7.8); NEUTROPHILS % (AUTO) 88 % (42-75); PLATELET COUNT 312 10^3/uL (130-400); RED BLOOD COUNT 4.52 10^6/uL (4.35-5.85); RED CELL DISTRIBUTION WIDTH 16.1 % (10.0-14.5); WHITE BLOOD COUNT 13.5 10^3/uL (4.3-11.0)
[2016-07-03 05:29] LABS: ALANINE AMINOTRANSFERASE 28 U/L (0-55); ALBUMIN 3.5 G/DL (3.2-4.5); ANION GAP 11 MMOL/L (5-14); ASPARTATE AMINO TRANSFERASE 25 U/L (5-34); BILIRUBIN,TOTAL 0.3 MG/DL (0.1-1.0); BLOOD UREA NITROGEN 6 MG/DL (7-18); BUN/CREATININE RATIO 8; CALCIUM 8.2 MG/DL (8.5-10.1); CARBON DIOXIDE 17 MMOL/L (21-32); CHLORIDE 113 MMOL/L (98-107); CREATININE SERUM 0.74 MG/DL (0.60-1.30); GFR ESTIMATED > 60; GLUCOSE 149 MG/DL (70-105); POTASSIUM 4.1 MMOL/L (3.6-5.0); SODIUM 141 MMOL/L (135-145); TOTAL PROTEIN 6.2 G/DL (6.4-8.2)
[2016-07-03] MEDS ORDERED: DILTIAZEM 100 MG/VIAL (CARDIZEM) ADD-VANTAGE IV ONE (05:49)
[2016-07-03] MEDS ORDERED: SODIUM CHLORIDE (ADD-VANTAGE) 100 ML IV ONE (05:49)
[2016-07-03] MEDS: DILTIAZEM DRIP 100 MG in SODIUM CHLORIDE (ADD-VANTAGE) 100 ML IV SCH ×2 (06:22→21:00)
[2016-07-03] MEDS: NS IV 1000 ML 1,000 ML IV SCH ×2 (06:50→09:17)
--- NOTE | 2016-07-03 08:00 | Progress Note (SOAP) ---
Subjective Subjective/Events-last exam patient last night went into atrial fibrillation. Patient sent to ICU. Patient put on Cardizem drip. White blood cell count 13,500. Patient states she's short of breath when he lies down. Patient given Lasix Objective Exam Vital Signs Date Time Temp Pulse Resp B/P Pulse Ox O2 Delivery O2 Flow Rate FiO2 07/03/16 07:05 94 Nasal Cannula 3.00 07/03/16 06:30 126 28 151/112 89 Nasal Cannula 5.00 07/03/16 06:22 121 148/90 07/03/16 06:15 116 21 148/90 85 Nasal Cannula 5.00 07/03/16 06:10 99.8 118 32 168/97 93 Nasal Cannula 5.00 07/03/16 06:05 124 07/03/16 06:00 117 32 168/97 94 Nasal Cannula 5.00 07/03/16 05:59 124 40 145/114 93 Nasal Cannula 5.00 07/03/16 05:47 132 07/03/16 05:29 100.8 121 Nasal Cannula 3.00 07/03/16 03:19 100.6 120 20 152/73 90 Nasal Cannula 2.00 07/03/16 02:36 92 Nasal Cannula 3.00 07/03/16 00:36 88 07/03/16 00:36 88 Nasal Cannula 2.00 07/02/16 23:26 99.8 117 20 169/73 92 Nasal Cannula 2.00 07/02/16 20:46 91 Nasal Cannula 2.00 07/02/16 20:00 98.6 101 20 172/74 96 Nasal Cannula 2.00 07/02/16 20:00 92 Nasal Cannula 2.00 07/02/16 16:00 97.7 105 18 144/87 94 Nasal Cannula 2.00 07/02/16 15:16 98 Nasal Cannula 2.00 07/02/16 14:00 16 162/86 94 Nasal Cannula 3.00 07/02/16 13:00 79 07/02/16 13:00 82 27 145/70 Nasal Cannula 3.00 07/02/16 12:12 93 Nasal Cannula 2.00 07/02/16 12:00 88 8 131/67 Nasal Cannula 3.00 07/02/16 12:00 96.9 07/02/16 11:00 82 25 129/59 Nasal Cannula 3.00 07/02/16 09:22 92 Room Air 3.00 07/02/16 09:00 71 25 129/56 95 Nasal Cannula 3.00 07/02/16 08:00 97 Nasal Cannula 2.00 07/02/16 08:00 70 25 131/65 Nasal Cannula 3.00 I & O 07/03/16 07:00 Intake Total 1900 ml Output Total 3200 ml Balance -1300 ml Capillary Refill : Less Than 3 Seconds General Appearance: No Apparent Distress HEENT: Normal ENT Inspection Neck: Full Range of Motion Normal Inspection Respiratory: Chest Non Tender Other (worse) Cardiovascular: Irregularly Irregular Gastrointestinal: soft Results Lab Laboratory Tests 07/03/16 04:49 Laboratory Tests 07/03/16 04:49: Alanine Aminotransferase (ALT/SGPT) 28, Albumin 3.5, Alkaline Phosphatase 70, Anion Gap 11, Aspartate Amino Transf (AST/SGOT) 25, BUN/Creatinine Ratio 8, Basophils # (Auto) 0.0, Basophils (%) (Auto) 0, Blood Urea Nitrogen 6L, Calcium Level 8.2L, Carbon Dioxide Level 17L, Chloride Level 113H, Creatinine 0.74, Eosinophils # (Auto) 0.0, Eosinophils (%) (Auto) 0, Estimat Glomerular Filtration Rate > 60, Glucose Level 149H, Hematocrit 39, Hemoglobin 12.6, Lymphocytes # (Auto) 0.9L, Lymphocytes (%) (Auto) 7L, Magnesium Level 1.8, Mean Corpuscular Hemoglobin 28, Mean Corpuscular Hemoglobin Concent 32, Mean Corpuscular Volume 87, Mean Platelet Volume 10.8H, Monocytes # (Auto) 0.7, Monocytes (%) (Auto) 6, Neutrophils # (Auto) 11.8H, Neutrophils (%) (Auto) 88H, Platelet Count 312, Potassium Level 4.1, Red Blood Count 4.52, Red Cell Distribution Width 16.1H, Sodium Level 141, Total Bilirubin 0.3, Total Protein 6.2L, White Blood Count 13.5H Microbiology 07/01/16 Blood Culture - Preliminary, Resulted No growth 07/01/16 Influenza Types A,B Antigen (RACHEL) - Final, Complete Assessment/Plan Assessment/Plan Assess & Plan/Chief Complaint new-onset atrial fibrillation. Temperature 105. Bronchitis Diagnosis/Problems: Clinical Quality Measures DVT/VTE Risk/Contraindication: Risk Factor Score Per Nursin RFS Level Per Nursing on Admit: 4+=Very High Contraindications-Pharm: Other *list below* TORSTEN AQUINO DO Jul 03, 2016 08:00
[2016-07-03] MEDS ORDERED: ZOLPIDEM 5 MG (AMBIEN) TAB PO NR (08:15)
[2016-07-03] MEDS ORDERED: FUROSEMIDE 40 MG/4 ML INJ (LASIX) IVP NR (08:15)
--- NOTE | 2016-07-03 08:47 | Diagnostic Imaging Report ---
EXAMINATION: Chest radiograph, portable AP view. DATE: July 03, 2016, at 0823 hours. INDICATION: 71-year-old female, shortness of breath. COMPARISON: July 02, 2016. FINDINGS: Stable overall appearance of the cardiomediastinal silhouette. There is no identified pneumothorax. There are slightly prominent interstitial markings. There is some obscuration of visualization of the left hemidiaphragm which appears similar to the comparison exam. There is no identified interval focal airspace consolidation. IMPRESSION: Unchanged mildly prominent bilateral interstitial opacities which may relate to mild pulmonary interstitial edema. Dictated by: Dictated on workstation # [id number]
[2016-07-03] MEDS ORDERED: ASPIRIN E.C. 81 MG (ECOTRIN) TAB PO SCH (09:00)
[2016-07-03] MEDS ORDERED: NON-FORMULARY MEDICATION 1 EA EA (Vitamin E Mixed (Vitamin E) 400 UNIT) PO SCH ×2 (09:00)
[2016-07-03] MEDS: VITAMIN E 400 INTLU CAP PO SCH (09:15)
[2016-07-03] MEDS: ASPIRIN E.C. 325 MG (ECOTRIN) TABLET PO SCH (09:15)
[2016-07-03] MEDS: OMEGA 3 (FISH OIL) 1000 MG CAP PO SCH ×3 (09:15→21:49)
[2016-07-03] MEDS: CLOPIDOGREL 75 MG (PLAVIX) TABLET PO SCH (09:19)
[2016-07-03] MEDS: DOXYCYCLINE 100 MG/NS 100 ML IVPB IV SCH ×4 (11:00→21:46)
--- NOTE | 2016-07-03 13:25 | Consultation-Cardiology ---
HPI-Cardiology Cardiology Consultation: Date of Consultation 07/03/16 Date of Admission Attending Physician Kurt Amador DO Admitting Physician Kurt Amador DO Consulting Physician Terri HENDERSON MD HPI: Chief Complaint: Shortness of breath This is a pleasant 71-year-old lady who is a patient of Dr. Watts and Dr. Amador. She has history of coronary artery disease with numerous stents placed in the past. She denies having atrial fibrillation. She presents with possible sepsis and shortness of breath. She denies any chest pain, palpitation , syncope, near syncope, lower extremity swelling. Review of Systems-Cardiology Review of Systems Constitutional: No As described under HPI, No no symptoms reported, No chills, No fever, No lightheadedness, No malaise, No tiredness, No weight loss, No weight gain, No other Eyes: No As described under HPI, No no symptoms reported, No blindness, No blurred vision, No contact lenses, No drainage, No decreased acuity, No foreign body sensation, No glasses, No inflammation, No pain, No photophobia, No previous injury, No shadows, No tunnel vision, No other, No vision change Ears/Nose/Throat: No As described under HPI, No no symptoms reported, No chronic hearing loss, No epistaxis, No ear discharge, No ear pain, No loose teeth, No mouth pain, No mouth swelling, No nasal drainage, No nose pain, No recent hearing loss, No throat pain, No throat swelling, No ulcerations, No other Respiratory: shortness of breath Cardiovascular: No no symptoms reported, No As described under HPI, No chest pain, No edema, No irregular heart rate, No lightheadedness, No palpitations, No syncope, No other Gastrointestinal: No no symptoms reported, No As described under HPI, No abdomen distended, No abdominal pain, No blood streaked bowels, No constipation , No diarrhea, No difficulty swallowing, No nausea, No poor appetite, No poor fluid intake, No rectal bleeding, No vomiting, No other, No nausea/vomiting/ diarrhea, No stool coloration changes Genitourinary: No no symptoms reported, No As described under HPI, No burning, No dysuria, No discharge, No frequency, No flank pain, No hematuria, No incontinence, No pain, No urgency, No other, No urine frequency changes, No urine coloration changes Musculoskeletal: No no symptoms reported, No As describe under HPI, No back pain, No gout, No joint pain, No joint swelling, No muscle pain, No muscle stiffness, No neck pain, No other Skin: No no symptoms reported, No As described under HPI, No change in color, No change in hair/nails, No dryness, No lesions, No lumps, No rash, No other, No skin related problems, No ulcerations, No rash on exposed areas, No ulcerations on exposed areas Psychiatric/Neurological: No As described under HPI, No anxiety, No depression , No emotional problems, No focal weakness, No headache, No no symptoms reported , No numbness, No other, No pre-existing deficit, No seizure, No syncope, No tingling, No tremors, No weakness Hematologic: No no symptoms reported, No As described under HPI, No anemia, No blood clots, No easy bleeding, No easy bruising, No swollen glands, No other, No bleeding abnormalities YLC-Iophtk-Rganza Hx Patient Social History Alcohol Use: Denies Use Recreational Drug Use: No Smoking Status: Former Smoker Former smoker/When Quit: Mar 24, 2005 Recent Foreign Travel: No Recent Infectious Disease Expo: No Physical Abuse Screen: No Sexual Abuse: No Immunizations Up To Date Date of Pneumonia Vaccine: Mar 19, 2015 Date of Influenza Vaccine: Mar 03, 2016 Past Medical History PMH As described under Assessment. Family Medical History Family History: Cardiovascular disease 19 FATHER G8 BROTHER Diabetes mellitus G8 SISTER G8 SISTER Hypercholesterolemia 19 FATHER 19 MOTHER G8 BROTHER G8 SISTER G8 SISTER Hypertension 19 FATHER 19 MOTHER G8 BROTHER G8 SISTER G8 SISTER Myocardial infarction 19 FATHER G8 BROTHER Neoplasm G8 SISTER (SPINAL CANCER ) Allergies and Home Medications Allergies Coded Allergies: morphine (Verified Allergy, Unknown, 08/05/08) Home Medications Aspirin 81 Mg Tablet.dr 81 MG PO DAILY (Reported) Atorvastatin Calcium 40 Mg Tablet 40 MG PO HS (Reported) Clopidogrel Bisulfate 75 Mg Tab 75 MG PO DAILY (Reported) Diazepam 5 Mg Tablet 2.5-5 MG PO HS (Reported) TAKES 1/2 TO 1 (5MG) TABLET Garlic 1 Each Capsule 1 CAP PO HS (Reported) Ipratropium/Albuterol Sulfate 14.7 Gm Aer.w.adap 1 PUFF IH TID PRN PRN SHORTNESS OF BREATH (Reported) Metoprolol Succinate 50 Mg Tab.er.24h 50 MG PO HS (Reported) Nitroglycerin 0.4 Mg Subl 0.4 MG SL UD PRN PRN CHEST PAIN (Reported) [place]-3S/Dha/Epa/Fish Oil 1 Each Capsule 1,200 MG PO BID (Reported) Vitamin E Mixed 400 Unit Tablet 400 UNIT PO DAILY (Reported) Physical Exam-Cardiology Physical Exam Vital Signs/I&O Vital Sign - Last 12Hours 07/03/16 07/03/16 07/03/16 07/03/16 02:36 03:19 05:29 05:47 Temp 100.6 100.8 Pulse 120 121 132 Resp 20 B/P 152/73 Pulse Ox 92 90 O2 Delivery Nasal Cannula Nasal Cannula Nasal Cannula O2 Flow Rate 3.00 2.00 3.00 07/03/16 07/03/16 07/03/16 07/03/16 05:59 06:00 06:05 06:10 Temp 99.8 Pulse 124 117 124 118 Resp 40 32 32 B/P 145/114 168/97 168/97 Pulse Ox 93 94 93 O2 Delivery Nasal Cannula Nasal Cannula Nasal Cannula O2 Flow Rate 5.00 5.00 5.00 07/03/16 07/03/16 07/03/16 07/03/16 06:15 06:22 06:30 07:00 Pulse 116 121 126 89 Resp 21 28 21 B/P 148/90 148/90 151/112 142/67 Pulse Ox 85 89 89 O2 Delivery Nasal Cannula Nasal Cannula Nasal Cannula O2 Flow Rate 5.00 5.00 5.00 07/03/16 07/03/16 07/03/16 07/03/16 07:00 07:05 08:00 08:00 Temp 99.0 Pulse 107 93 Resp 14 B/P 132/61 Pulse Ox 94 93 89 O2 Delivery Nasal Cannula Nasal Cannula Nasal Cannula O2 Flow Rate 3.00 5.00 5.00 07/03/16 07/03/16 07/03/16 07/03/16 08:10 09:00 09:30 10:00 Pulse 85 112 Resp 11 18 B/P 149/63 129/67 Pulse Ox 93 90 95 89 O2 Delivery Nasal Cannula Nasal Cannula Nasal Cannula Nasal Cannula O2 Flow Rate 5.00 5.00 2.00 5.00 07/03/16 07/03/16 07/03/1617 11:00 12:00 12:10 12:13 Temp 98.7 Pulse 90 80 Resp 21 20 B/P 128/67 144/66 Pulse Ox 92 95 93 O2 Delivery Nasal Cannula Nasal Cannula Nasal Cannula O2 Flow Rate 5.00 5.00 5.00 07/03/16 12:53 Pulse Ox 92 O2 Delivery Nasal Cannula O2 Flow Rate 4.00 Intake and Output 07/03/16 00:00 Intake Total 1200 ml Output Total 1100 ml Balance 100 ml Capillary Refill : Less Than 3 Seconds Data Review Labs Laboratory Tests 07/03/16 04:49: Alanine Aminotransferase (ALT/SGPT) 28, Albumin 3.5, Alkaline Phosphatase 70, Anion Gap 11, Aspartate Amino Transf (AST/SGOT) 25, B-Type Natriuretic Peptide 406.9H, BUN/Creatinine Ratio 8, Basophils # (Auto) 0.0, Basophils (%) (Auto) 0, Blood Urea Nitrogen 6L, Calcium Level 8.2L, Carbon Dioxide Level 17L, Chloride Level 113H, Creatinine 0.74, Eosinophils # (Auto) 0.0, Eosinophils (%) (Auto) 0 , Estimat Glomerular Filtration Rate > 60, Glucose Level 149H, Hematocrit 39, Hemoglobin 12.6, Lymphocytes # (Auto) 0.9L, Lymphocytes (%) (Auto) 7L, Magnesium Level 1.8, Mean Corpuscular Hemoglobin 28, Mean Corpuscular Hemoglobin Concent 32, Mean Corpuscular Volume 87, Mean Platelet Volume 10.8H, Monocytes # (Auto) 0.7, Monocytes (%) (Auto) 6, Neutrophils # (Auto) 11.8H, Neutrophils (%) (Auto) 88H, Platelet Count 312, Potassium Level 4.1, Red Blood Count 4.52, Red Cell Distribution Width 16.1H, Sodium Level 141, Total Bilirubin 0.3, Total Protein 6.2L, Troponin I < 0.30, White Blood Count 13.5H Microbiology 07/01/16 Blood Culture - Preliminary, Resulted No growth 07/01/16 Influenza Types A,B Antigen (RACHEL) - Final, Complete ECG Impression ECG Comment EKG done today shows unclear atrial rhythm. The ventricular rate is regular however there are no clear discernible P waves. This could be sinus rhythm versus regularized atrial fibrillation. She was in atrial fibrillation on telemetry earlier today. A/P-Cardiology Assessment/Admission Diagnosis Coronary artery disease, Sepsis, Atrial fibrillation, Congestive heart failure Plan Sepsis: Deferred to Dr. Amador. Coronary artery disease: Continue outpatient medicines. Congestive heart failure: Request an echocardiogram. Agree with IV Lasix. BNP mildly elevated. She is not in florid heart failure. Atrial fibrillation: On telemetry she earlier she was in atrial fibrillation. We just did an EKG which is very regular, likely sinus rhythm however there are no discernible P waves. Continue Cardizem, will suggest anticoagulation with Eliquis. Will discontinue aspirin and Plavix. Thank you for your consultation. Please call me if you have any questions. Dee Henderson MD, FACP, FACC, FSCAI, FHRS, CCDS Interventional Cardiology Cardiac Electrophysiology Vascular Medicine and Endovascular Interventions Clinical Quality Measures DVT/VTE Risk/Contraindication: Risk Factor Score Per Nursin RFS Level Per Nursing on Admit: 4+=Very High Contraindications-Pharm: Other *list below* Terri HENDERSON MD Jul 03, 2016 1:25 pm
[2016-07-03] MEDS: DIAZEPAM 5 MG (VALIUM) TABLET PO SCH (21:00)
[2016-07-03] MEDS ORDERED: RT-ALBUTEROL/IPRATROPIUM 3 ML (DUONEB) VIAL IH PRN (21:00)
[2016-07-03] MEDS ORDERED: cefTRIAXone 1 GM (ROCEPHIN) VIAL ONE (21:29)
[2016-07-03] MEDS: ATORVASTATIN 40 MG (LIPITOR) TABLET PO SCH (21:42)
[2016-07-03] MEDS: meTOproloL SUCCINATE 50 MG (TOPROL XL) TAB PO SCH (21:43)
[2016-07-03] MEDS: ZOLPIDEM 5 MG (AMBIEN) TAB PO SCH (21:43)
[2016-07-03] MEDS: cefTRIAXone 1 GM/NS 50 ML IVPB IV SCH ×2 (21:45)
[2016-07-04] VITALS (23 sets, daily range): BP systolic 95–159; BP diastolic 45–94
[2016-07-04] MEDS: RT-ALBUTEROL/IPRATROPIUM 3 ML (DUONEB) VIAL INH SCH ×6 (02:18→22:00)
[2016-07-04 05:06] LABS: BASOPHILS % (AUTO) 0 % (0-10); EOSINOPHILS % (AUTO) 0 % (0-10); LYMPHOCYTES # (AUTO) 1.3 X 10^3 (1.0-4.0); LYMPHOCYTES % (AUTO) 12 % (12-44); MEAN CORPUSCULAR HEMOGLOBIN 28 PG (25-34); MEAN CORPUSCULAR HGB CONC 32 G/DL (32-36); MEAN CORPUSCULAR VOLUME 87 FL (80-99); MEAN PLATELET VOLUME 10.5 FL (7.4-10.4); MONOCYTES # (AUTO) 0.9 X 10^3 (0.0-1.0); MONOCYTES % (AUTO) 8 % (0-12); NEUTROPHILS # (AUTO) 9.1 X 10^3 (1.8-7.8); NEUTROPHILS % (AUTO) 80 % (42-75); PLATELET COUNT 283 10^3/uL (130-400); RED CELL DISTRIBUTION WIDTH 16.3 % (10.0-14.5); WHITE BLOOD COUNT 11.4 10^3/uL (4.3-11.0)
[2016-07-04 05:30] LABS: ANION GAP 10 MMOL/L (5-14); BLOOD UREA NITROGEN 7 MG/DL (7-18); BUN/CREATININE RATIO 9; CALCIUM 8.5 MG/DL (8.5-10.1); CARBON DIOXIDE 20 MMOL/L (21-32); CHLORIDE 107 MMOL/L (98-107); CREATININE SERUM 0.77 MG/DL (0.60-1.30); GFR ESTIMATED > 60; GLUCOSE 116 MG/DL (70-105); MAGNESIUM 1.8 MG/DL (1.8-2.4); PHOSPHORUS 2.3 MG/DL (2.3-4.7); POTASSIUM 3.9 MMOL/L (3.6-5.0); SODIUM 137 MMOL/L (135-145)
--- NOTE | 2016-07-04 07:42 | Progress Note (SOAP) ---
Subjective Subjective/Events-last exam patient feeling better today. Patient feels weak. Patient Seletz respiratory congestion. Patient still in atrial fibrillation. Patient didn't sleep all night Objective Exam Vital Signs Date Time Temp Pulse Resp B/P Pulse Ox O2 Delivery O2 Flow Rate FiO2 07/04/16 07:12 96 Nasal Cannula 2.00 07/04/16 05:00 96 27 140/87 95 Nasal Cannula 3.50 07/04/16 04:00 99.1 07/04/16 04:00 99 29 107/67 92 Nasal Cannula 3.50 07/04/16 03:00 95 12 146/68 95 Nasal Cannula 3.50 07/04/16 02:18 93 Nasal Cannula 3.50 07/04/16 02:00 96 25 101/77 90 Nasal Cannula 3.50 07/04/16 01:00 87 113/68 93 Nasal Cannula 3.50 07/04/16 01:00 93 07/04/16 00:00 93 115/65 92 Nasal Cannula 3.50 07/04/16 00:00 98.2 Nasal Cannula 3.50 07/03/16 23:00 97 125/65 92 Nasal Cannula 3.50 07/03/16 22:00 112 15 162/72 92 Nasal Cannula 3.50 07/03/16 21:00 92 24 141/70 94 Nasal Cannula 3.50 07/03/16 20:00 96 19 129/101 94 Nasal Cannula 3.50 07/03/16 20:00 105 07/03/16 20:00 95 Nasal Cannula 3.50 07/03/16 19:00 118 22 138/68 93 Nasal Cannula 3.50 07/03/16 18:23 93 Nasal Cannula 3.50 07/03/16 18:00 96 17 136/98 94 Nasal Cannula 3.50 07/03/16 17:00 96 14 144/84 93 Nasal Cannula 3.50 07/03/16 16:36 98.0 07/03/16 16:19 93 Nasal Cannula 5.00 07/03/16 16:00 85 12 145/68 91 Nasal Cannula 3.50 07/03/16 15:00 97 19 121/53 91 Nasal Cannula 3.50 07/03/16 14:00 86 25 136/74 89 Nasal Cannula 3.50 07/03/16 13:00 Nasal Cannula 3.50 07/03/16 13:00 98 29 131/60 92 Nasal Cannula 3.50 07/03/16 13:00 129 07/03/16 12:53 92 Nasal Cannula 4.00 07/03/16 12:13 98.7 07/03/16 12:10 93 Nasal Cannula 5.00 07/03/16 12:00 80 20 144/66 95 Nasal Cannula 5.00 07/03/16 11:00 90 21 128/67 92 Nasal Cannula 5.00 07/03/16 10:00 112 18 129/67 89 Nasal Cannula 5.00 07/03/16 09:30 95 Nasal Cannula 2.00 07/03/16 09:00 85 11 149/63 90 Nasal Cannula 5.00 07/03/16 08:10 93 Nasal Cannula 5.00 07/03/16 08:00 93 14 132/61 89 Nasal Cannula 5.00 07/03/16 08:00 99.0 93 Nasal Cannula 5.00 I & O 07/04/16 07:00 Intake Total 1740 ml Output Total 2200 ml Balance -460 ml Capillary Refill : Less Than 3 SecondsNONE General Appearance: No Apparent Distress WD/WN HEENT: Normal ENT Inspection Neck: Normal Inspection Respiratory: Chest Non Tender No Accessory Muscle Use No Respiratory Distress Decreased Breath Sounds Other (2 L of nasal oxygen from 3) Cardiovascular: Irregularly Irregular Gastrointestinal: non tender soft Results Lab Laboratory Tests 07/04/16 04:41: Anion Gap 10, BUN/Creatinine Ratio 9, Basophils # (Auto) 0.0, Basophils (%) ( Auto) 0, Blood Urea Nitrogen 7, Calcium Level 8.5, Carbon Dioxide Level 20L, Chloride Level 107, Creatinine 0.77, Eosinophils # (Auto) 0.0, Eosinophils (%) ( Auto) 0, Estimat Glomerular Filtration Rate > 60, Glucose Level 116H, Hematocrit 36, Hemoglobin 11.8, Lymphocytes # (Auto) 1.3, Lymphocytes (%) (Auto ) 12, Magnesium Level 1.8, Mean Corpuscular Hemoglobin 28, Mean Corpuscular Hemoglobin Concent 32, Mean Corpuscular Volume 87, Mean Platelet Volume 10.5H, Monocytes # (Auto) 0.9, Monocytes (%) (Auto) 8, Neutrophils # (Auto) 9.1H, Neutrophils (%) (Auto) 80H, Phosphorus Level 2.3, Platelet Count 283, Potassium Level 3.9, Red Blood Count 4.20L, Red Cell Distribution Width 16.3H, Sodium Level 137, White Blood Count 11.4H Microbiology 07/01/16 Blood Culture - Preliminary, Resulted No growth 07/01/16 Influenza Types A,B Antigen (RACHEL) - Final, Complete Assessment/Plan Assessment/Plan Assess & Plan/Chief Complaint new-onset atrial fibrillation. Temperature 105. Bronchitis. . 07/04/16. New-onset atrial fibrillation. Bronchitis. Coronary artery disease. Patient still feels weak Diagnosis/Problems: Clinical Quality Measures DVT/VTE Risk/Contraindication: Risk Factor Score Per Nursin RFS Level Per Nursing on Admit: 4+=Very High Contraindications-Pharm: Other *list below* TORSTEN AQUINO DO Jul 04, 2016 07:42
[2016-07-04] MEDS: VITAMIN E 400 INTLU CAP PO SCH (08:05)
[2016-07-04] MEDS: ASPIRIN E.C. 325 MG (ECOTRIN) TABLET PO SCH (08:05)
[2016-07-04] MEDS: CLOPIDOGREL 75 MG (PLAVIX) TABLET PO SCH (08:06)
[2016-07-04] MEDS: DOXYCYCLINE 100 MG/NS 100 ML IVPB IV SCH ×4 (08:07→20:29)
--- NOTE | 2016-07-04 08:47 | Diagnostic Imaging Report ---
INDICATION: Bronchitis. COMPARISON: 07/03/2016. FINDINGS: The upper limits heart size is stable. Some chronic prominence of the interstitial lung markings and perihilar opacity are all unchanged. The body habitus limits the exam sensitivity, particularly at the lung bases. No appreciable pleural fluid or pneumothorax. IMPRESSION: No interval change. Dictated by: Dictated on workstation # [id number]
[2016-07-04] MEDS: meTOproloL SUCCINATE 50 MG (TOPROL XL) TAB PO NR ×2 (11:56→12:28)
[2016-07-04] MEDS ORDERED: APIXABAN 5 MG (ELIQUIS) TABLET PO SCH (12:00)
--- NOTE | 2016-07-04 13:44 | Cardiology Progress Note ---
Cardiology SOAP Progress Note Subjective: palpitations Objective: I&O/Vital Signs Vital Sign - Last 12Hours 07/04/16 07/04/16 07/04/16 07/04/16 09:00 10:00 10:17 11:00 Pulse 92 90 104 Resp 38 16 21 B/P 143/71 140/70 149/63 Pulse Ox 91 91 90 91 O2 Delivery Nasal Cannula Nasal Cannula Nasal Cannula Nasal Cannula O2 Flow Rate 3.50 3.50 2.00 3.50 07/04/16 07/04/16 07/04/16 07/04/16 12:00 12:00 12:00 13:00 Temp 99.9 99.4 Pulse 129 121 Resp 18 B/P 159/82 O2 Delivery Nasal Cannula Nasal Cannula O2 Flow Rate 2.00 2.00 07/04/16 07/04/16 07/04/16 07/04/16 13:00 14:00 14:46 14:49 Pulse 128 95 Resp 22 B/P 138/87 Pulse Ox 91 92 92 O2 Delivery Nasal Cannula Nasal Cannula Nasal Cannula O2 Flow Rate 2.00 2.00 2.00 07/04/16 07/04/16 07/04/16 07/04/16 15:00 16:00 16:00 16:30 Temp 99.7 100.4 Pulse 107 137 Resp 29 15 B/P 151/84 149/93 Pulse Ox 93 90 O2 Delivery Nasal Cannula Nasal Cannula Nasal Cannula O2 Flow Rate 2.00 2.00 2.00 07/04/16 07/04/16 07/04/16 07/04/16 17:00 17:08 18:00 18:41 Pulse 96 100 92 Resp 32 11 29 B/P 155/94 155/94 132/63 Pulse Ox 93 93 90 93 O2 Delivery Nasal Cannula Nasal Cannula Nasal Cannula O2 Flow Rate 2.00 2.00 2.00 2.00 07/04/16 19:00 Pulse 96 Intake and Output 07/04/16 00:00 Intake Total 640 ml Output Total 2000 ml Balance -1360 ml Weight (Pounds): 215 Weight (Ounces): 4.0 Weight (Calculated Kilograms): 97.780109 Constitutional: No appears stated age, No AAO x 3, No apparent distress, No PERRL, No well-developed, No well-nourished, No other Respiratory: No accessory muscle use, No respiratory distress, No chest tender , No chest expansion is symmetric, No chest is bilaterally symmetric, No lungs clear to percussion, No lungs clear to auscultation, No crackles, No rhonchi, No rales, No stridor, No wheezing, No pleural rub, No other Cardiovascular: No regular rate-rhythm, irregularly irregularNo extra beats, No parasternal heave is noted, No JVD, No edema, No bradycardia, No tachycardia , No point of maximal impulse, No cardiac thrills are palpable, No S1 and S2, No gallop/S3, No gallop/S4, No diastolic murmur, No systolic murmur, No friction rub, No click, No other Gastrointestional: No tender, No soft, No round, No distended, No pulsatile mass, No organomegaly, No guarding, No rebound, No tenderness, No hernia, No mass, No audible bowel sounds, No abnormal bowel sounds, No abdominal bruits, No spleenomegaly, No other Extremities: No normal range of motion, No non-tender, No normal inspection, No pedal edema, No calf tenderness, No normal capillary refill, No pelvis stable , No calf tenderness, No inflammation, No pedal edema, No slow capillary refill , No swelling, No other, No abrasion, No clubbing, No cyanosis, No ecchymosis, No laceration, No no lower extremity edema bilateral, No significant edema, No tenderness, No wound Neurologic/Psychiatric: No junior assistant manager II-XII nml as tested, No no motor/sensory deficits, No alert, No normal mood/affect, No oriented x 3, No abnormal cerebellar tests, No abnormal junior assistant manager II-XII, No abnormal gait, No aphasia, No EOM palsy, No facial droop, No motor weakness, No sensory deficit, No depressed affect, No disoriented x 3, No other, No grossly intact, No power is 5/5 both on sides Skin: No normal color, No warm/dry, No cyanosis, No cool, No diaphoresis, No damp, No ecchymosis, No jaundice, No mottled, No pallor, No rash, No tattoos/ piercings, No ulcerations, No rash on exposed areas, No ulcerations on exposed areas, No other Results/Procedures: Labs Laboratory Tests 07/04/16 04:41: Anion Gap 10, BUN/Creatinine Ratio 9, Basophils # (Auto) 0.0, Basophils (%) ( Auto) 0, Blood Urea Nitrogen 7, Calcium Level 8.5, Carbon Dioxide Level 20L, Chloride Level 107, Creatinine 0.77, Eosinophils # (Auto) 0.0, Eosinophils (%) ( Auto) 0, Estimat Glomerular Filtration Rate > 60, Glucose Level 116H, Hematocrit 36, Hemoglobin 11.8, Lymphocytes # (Auto) 1.3, Lymphocytes (%) (Auto ) 12, Magnesium Level 1.8, Mean Corpuscular Hemoglobin 28, Mean Corpuscular Hemoglobin Concent 32, Mean Corpuscular Volume 87, Mean Platelet Volume 10.5H, Monocytes # (Auto) 0.9, Monocytes (%) (Auto) 8, Neutrophils # (Auto) 9.1H, Neutrophils (%) (Auto) 80H, Phosphorus Level 2.3, Platelet Count 283, Potassium Level 3.9, Red Blood Count 4.20L, Red Cell Distribution Width 16.3H, Sodium Level 137, Thyroid Stimulating Hormone (TSH) 0.64, White Blood Count 11.4H Microbiology 07/01/16 Blood Culture - Preliminary, Resulted No growth 07/03/16 Gram Stain - Final, Resulted 07/03/16 Sputum Culture - Preliminary, Resulted A/P: Assessment/Dx: afib, CHF, CAD, infection Plan: Sepsis: Deferred to Dr. Amador. Coronary artery disease: Continue outpatient medicines. Congestive heart failure: Request an echocardiogram. Agree with IV Lasix. BNP mildly elevated. She is not in florid heart failure. Atrial fibrillation: On telemetry she earlier she was in atrial fibrillation. We just did an EKG which is very regular, likely sinus rhythm however there are no discernible P waves. Continue Cardizem, will suggest anticoagulation with Eliquis. Will discontinue aspirin and Plavix. Terri GALLARDO MD Jul 04, 2016 1:44 pm
[2016-07-04] MEDS ORDERED: DILTIAZEM 25 MG/5 ML INJ (CARDIZEM) VIAL ONE (16:27)
[2016-07-04] MEDS ORDERED: DILTIAZEM 25 MG/5 ML INJ (CARDIZEM) VIAL IVP NR (16:54)
[2016-07-04] MEDS: DILTIAZEM DRIP 100 MG in SODIUM CHLORIDE (ADD-VANTAGE) 100 ML IV SCH ×2 (17:08→22:15)
[2016-07-04] MEDS: OMEGA 3 (FISH OIL) 1000 MG CAP PO SCH (17:13)
[2016-07-04] MEDS: ZOLPIDEM 5 MG (AMBIEN) TAB PO SCH (20:42)
[2016-07-04] MEDS: meTOproloL SUCCINATE 50 MG (TOPROL XL) TAB PO SCH (20:42)
[2016-07-04] MEDS: ATORVASTATIN 40 MG (LIPITOR) TABLET PO SCH (20:42)
[2016-07-04] MEDS: APIXABAN 5 MG (ELIQUIS) TABLET PO SCH (20:42)
[2016-07-04] MEDS: DIAZEPAM 5 MG (VALIUM) TABLET PO SCH (20:43)
[2016-07-04] MEDS ORDERED: NORMAL SALINE (BAXTER MINI) 50 ML IV ONE (21:36)
[2016-07-04] MEDS ORDERED: cefTRIAXone 1 GM (ROCEPHIN) VIAL ONE (21:36)
[2016-07-04] MEDS: cefTRIAXone 1 GM/NS 50 ML IVPB IV SCH ×2 (21:45)
[2016-07-05] VITALS (9 sets, daily range): BP systolic 109–168; BP diastolic 52–88
[2016-07-05] MEDS: RT-ALBUTEROL/IPRATROPIUM 3 ML (DUONEB) VIAL INH SCH ×6 (01:47→22:42)
[2016-07-05 03:57] LABS: BASOPHILS % (AUTO) 0 % (0-10); EOSINOPHILS # (AUTO) 0.1 10^3/uL (0.0-0.3); EOSINOPHILS % (AUTO) 1 % (0-10); LYMPHOCYTES # (AUTO) 1.5 X 10^3 (1.0-4.0); LYMPHOCYTES % (AUTO) 16 % (12-44); MEAN CORPUSCULAR HEMOGLOBIN 28 PG (25-34); MEAN CORPUSCULAR HGB CONC 33 G/DL (32-36); MEAN CORPUSCULAR VOLUME 86 FL (80-99); MEAN PLATELET VOLUME 10.4 FL (7.4-10.4); MONOCYTES # (AUTO) 0.8 X 10^3 (0.0-1.0); MONOCYTES % (AUTO) 9 % (0-12); NEUTROPHILS # (AUTO) 6.8 X 10^3 (1.8-7.8); NEUTROPHILS % (AUTO) 74 % (42-75); PLATELET COUNT 304 10^3/uL (130-400); RED BLOOD COUNT 4.22 10^6/uL (4.35-5.85); WHITE BLOOD COUNT 9.2 10^3/uL (4.3-11.0)
[2016-07-05 04:17] LABS: ALANINE AMINOTRANSFERASE 23 U/L (0-55); ALBUMIN 3.3 G/DL (3.2-4.5); ANION GAP 10 MMOL/L (5-14); ASPARTATE AMINO TRANSFERASE 21 U/L (5-34); BILIRUBIN,TOTAL 0.5 MG/DL (0.1-1.0); BLOOD UREA NITROGEN 8 MG/DL (7-18); BUN/CREATININE RATIO 11; CALCIUM 8.6 MG/DL (8.5-10.1); CARBON DIOXIDE 21 MMOL/L (21-32); CHLORIDE 109 MMOL/L (98-107); GFR ESTIMATED > 60; GLUCOSE 117 MG/DL (70-105); MAGNESIUM 1.8 MG/DL (1.8-2.4); PHOSPHORUS 2.6 MG/DL (2.3-4.7); POTASSIUM 3.7 MMOL/L (3.6-5.0); SODIUM 140 MMOL/L (135-145); TOTAL PROTEIN 5.9 G/DL (6.4-8.2)
[2016-07-05] MEDS ORDERED: MAGNESIUM 1 GM/100 ML IVPB 100 ML IV SCH (06:00)
[2016-07-05] MEDS ORDERED: KCL 20 MEQ TAB (K-DUR) PO SCH (06:00)
[2016-07-05] MEDS ORDERED: POTASSIUM CL 10MEQ/50ML IVPB 50 ML IV SCH (06:00)
--- NOTE | 2016-07-05 07:43 | Progress Note (SOAP) ---
Subjective Subjective/Events-last exam patient's heart rate went quick yesterday. Patient in sinus rhythm now. Patient still coughing and has some congestion. Patient still on nasal oxygen. Patient on Cardizem drip. Patient overall feeling better. Slow process Objective Exam Vital Signs Date Time Temp Pulse Resp B/P Pulse Ox O2 Delivery O2 Flow Rate FiO2 07/05/16 07:28 89 Nasal Cannula 3.00 07/05/16 06:00 77 30 143/75 92 Nasal Cannula 2.00 07/05/16 05:00 79 33 145/68 92 Nasal Cannula 2.00 07/05/16 04:00 99.5 80 34 118/52 90 Nasal Cannula 2.00 07/05/16 03:00 83 45 152/77 92 Nasal Cannula 2.00 07/05/16 02:00 93 18 140/88 90 Nasal Cannula 2.00 07/05/16 01:47 88 Nasal Cannula 2.00 07/05/16 01:10 82 07/05/16 01:00 82 54 114/55 90 Nasal Cannula 2.00 07/05/16 00:00 99.6 82 28 109/74 88 Nasal Cannula 2.00 07/04/16 23:00 86 38 135/65 90 Nasal Cannula 2.00 07/04/16 22:00 99.5 83 29 127/68 92 Nasal Cannula 2.00 07/04/16 21:00 87 34 141/72 90 Nasal Cannula 2.00 07/04/16 20:00 92 Nasal Cannula 2.00 07/04/16 20:00 92 33 132/63 92 Nasal Cannula 2.00 07/04/16 19:00 97 26 95/73 90 Nasal Cannula 2.00 07/04/16 19:00 96 07/04/16 18:41 93 Nasal Cannula 2.00 07/04/16 18:00 92 29 132/63 90 Nasal Cannula 2.00 07/04/16 17:08 100 11 155/94 93 2.00 07/04/16 17:00 96 32 155/94 93 Nasal Cannula 2.00 07/04/16 16:30 100.4 07/04/16 16:00 99.7 Nasal Cannula 2.00 07/04/16 16:00 137 15 149/93 90 Nasal Cannula 2.00 07/04/16 15:00 107 29 151/84 93 Nasal Cannula 2.00 07/04/16 14:49 92 07/04/16 14:46 92 Nasal Cannula 2.00 07/04/16 14:00 95 138/87 91 Nasal Cannula 2.00 07/04/16 13:00 128 22 Nasal Cannula 2.00 07/04/16 13:00 121 07/04/16 12:00 99.4 Nasal Cannula 2.00 07/04/16 12:00 99.9 07/04/16 12:00 129 18 159/82 Nasal Cannula 2.00 07/04/16 11:00 104 21 149/63 91 Nasal Cannula 3.50 07/04/16 10:17 90 Nasal Cannula 2.00 07/04/16 10:00 90 16 140/70 91 Nasal Cannula 3.50 07/04/16 09:00 92 38 143/71 91 Nasal Cannula 3.50 07/04/16 08:00 89 32 123/45 91 Nasal Cannula 3.50 07/04/16 08:00 Nasal Cannula 2.00 I & O 07/05/16 07:00 Intake Total 350 ml Output Total 1800 ml Balance -1450 ml Capillary Refill : Less Than 3 SecondsNONE General Appearance: No Apparent Distress WD/WN HEENT: TMs Normal Neck: Full Range of Motion Non Tender Respiratory: Decreased Breath Sounds Other (course) Cardiovascular: Regular Rate, Rhythm No Murmur Gastrointestinal: non tender soft Results Lab Laboratory Tests 07/05/16 03:40 Laboratory Tests 07/05/16 03:40: Alanine Aminotransferase (ALT/SGPT) 23, Albumin 3.3, Alkaline Phosphatase 70, Anion Gap 10, Aspartate Amino Transf (AST/SGOT) 21, BUN/Creatinine Ratio 11, Basophils # (Auto) 0.0, Basophils (%) (Auto) 0, Blood Urea Nitrogen 8, Calcium Level 8.6, Carbon Dioxide Level 21, Chloride Level 109H, Creatinine 0.70, Eosinophils # (Auto) 0.1, Eosinophils (%) (Auto) 1, Estimat Glomerular Filtration Rate > 60, Glucose Level 117H, Hematocrit 36, Hemoglobin 11.9, Lymphocytes # (Auto) 1.5, Lymphocytes (%) (Auto) 16, Magnesium Level 1.8, Mean Corpuscular Hemoglobin 28, Mean Corpuscular Hemoglobin Concent 33, Mean Corpuscular Volume 86, Mean Platelet Volume 10.4, Monocytes # (Auto) 0.8, Monocytes (%) (Auto) 9, Neutrophils # (Auto) 6.8, Neutrophils (%) (Auto) 74, Phosphorus Level 2.6, Platelet Count 304, Potassium Level 3.7, Red Blood Count 4.22L, Red Cell Distribution Width 16.0H, Sodium Level 140, Total Bilirubin 0.5 , Total Protein 5.9L, White Blood Count 9.2 Microbiology 07/01/16 Blood Culture - Preliminary, Resulted No growth 07/03/16 Gram Stain - Final, Complete 07/03/16 Sputum Culture - Final, Complete Usual/normal saige isolated. Assessment/Plan Assessment/Plan Assess & Plan/Chief Complaint new-onset atrial fibrillation. Temperature 105. Bronchitis. . 07/04/16. New-onset atrial fibrillation. Bronchitis. Coronary artery disease. Patient still feels weak. . 07/05/16. Atrial fibrillation now in sinus rhythm. Bronchitis. Coronary artery disease. Patient still on oxygen. Patient still weak Diagnosis/Problems: Clinical Quality Measures DVT/VTE Risk/Contraindication: Risk Factor Score Per Nursin RFS Level Per Nursing on Admit: 4+=Very High Contraindications-Pharm: Other *list below* TORSTEN AQUINO DO Jul 05, 2016 07:42
--- NOTE | 2016-07-05 08:20 | Diagnostic Imaging Report ---
INDICATION: Bronchitis COMPARISON: 07/04/2016 FINDINGS: Single frontal radiographic view of the chest was obtained and demonstrates persistent cardiomegaly and mild pulmonary vascular congestion. Lungs continue to show mild diffuse prominence of the interstitium. There may be some patchy alveolar opacities in both lung bases. Overall, aeration is unchanged. No pneumothorax is seen on either side. Bony structures show no gross acute abnormalities. IMPRESSION: 1. Stable exam of the chest showing cardiomegaly and sequela of CHF including interstitial pulmonary edema. 2. Patchy bibasilar opacities, which may be on the basis of atelectasis and/or infiltrate. Underlying effusions cannot be excluded. Dictated by: Dictated on workstation # [id number]
[2016-07-05] MEDS: VITAMIN E 400 INTLU CAP PO SCH (09:39)
[2016-07-05] MEDS: OMEGA 3 (FISH OIL) 1000 MG CAP PO SCH ×2 (09:39→16:13)
[2016-07-05] MEDS: ASPIRIN E.C. 325 MG (ECOTRIN) TABLET PO SCH (09:39)
[2016-07-05] MEDS: APIXABAN 5 MG (ELIQUIS) TABLET PO SCH ×2 (09:39→22:18)
[2016-07-05] MEDS: DOXYCYCLINE 100 MG/NS 100 ML IVPB IV SCH ×4 (09:40→22:18)
[2016-07-05] MEDS: DILTIAZEM DRIP 100 MG in SODIUM CHLORIDE (ADD-VANTAGE) 100 ML IV SCH (09:40)
[2016-07-05] MEDS: DILTIAZEM 180 MG (CARDIZEM CD) CAP PO SCH (13:26)
--- NOTE | 2016-07-05 14:12 | Physician Query-Heart Failure ---
Physician Query-Heart Failure Query to Physician: Provider's Document Request-Please contact vocational training instructor listed on document for more information. Dear Provider, We need your assistance to accurately capture the severity of the patients heart failure. Physician participation is requested in all cases of citrus fruit packer uncertainty to minimize errors in code assignment and to avoid compliance issues. Please select the type of heart failure the patient has below. Clinical Findings: Pro-BNP 406.9 Type of Heart Failure: Type of Heart Failure: Diastolic HF (Acute) Status: Acute If you have questions please contact: Station Examiner:Caridad Delacruz [facility] Ext:[phone] Thank you for your time and cooperation. Clinical Meat Pickler/Station Examiner This is a permanent part of the medical record CARIDAD DELACRUZ Jul 05, 2016 14:12 Terri GALLARDO MD Jul 19, 2016 12:22
[2016-07-05] MEDS ORDERED: CATHETER FLUSH 10 ML SYR IV PRN (15:15)
[2016-07-05] MEDS ORDERED: IPRA4AER INH (15:28)
[2016-07-05] MEDS: DIAZEPAM 5 MG (VALIUM) TABLET PO SCH (20:28)
--- NOTE | 2016-07-05 21:11 | Cardiology Progress Note ---
Cardiology SOAP Progress Note Subjective: no palpitations Objective: I&O/Vital Signs Vital Sign - Last 12Hours 07/05/16 07/05/16 07/05/16 07/05/16 09:40 11:02 12:00 12:00 Temp 99.5 98.9 Pulse 73 Resp 30 B/P 143/75 Pulse Ox 89 94 92 O2 Delivery Nasal Cannula Nasal Cannula O2 Flow Rate 3.00 3.00 2.00 07/05/16 07/05/16 07/05/16 07/05/16 13:00 14:44 16:13 19:00 Temp 97.8 Pulse 86 86 80 Resp 16 B/P 163/74 Pulse Ox 84 95 O2 Delivery Nasal Cannula Nasal Cannula O2 Flow Rate 3.00 5.00 07/05/16 19:23 Pulse Ox 97 O2 Delivery Nasal Cannula O2 Flow Rate 5.00 Intake and Output 07/05/16 00:00 Intake Total 200 ml Output Total 1150 ml Balance -950 ml Weight (Pounds): 211 Weight (Ounces): 2.0 Weight (Calculated Kilograms): 95.879082 Constitutional: No appears stated age, No AAO x 3, No apparent distress, No PERRL, No well-developed, No well-nourished, No other Respiratory: No accessory muscle use, No respiratory distress, No chest tender , No chest expansion is symmetric, No chest is bilaterally symmetric, No lungs clear to percussion, No lungs clear to auscultation, No crackles, No rhonchi, No rales, No stridor, No wheezing, No pleural rub, No other Cardiovascular: No regular rate-rhythm, No extra beats, No parasternal heave is noted, No JVD, No edema, No bradycardia, No tachycardia, No point of maximal impulse, No cardiac thrills are palpable, No S1 and S2, No gallop/S3, No gallop/ S4, No diastolic murmur, No systolic murmur, No friction rub, No click, No other Gastrointestional: No tender, No soft, No round, No distended, No pulsatile mass, No organomegaly, No guarding, No rebound, No tenderness, No hernia, No mass, No audible bowel sounds, No abnormal bowel sounds, No abdominal bruits, No spleenomegaly, No other Extremities: No normal range of motion, No non-tender, No normal inspection, No pedal edema, No calf tenderness, No normal capillary refill, No pelvis stable , No calf tenderness, No inflammation, No pedal edema, No slow capillary refill , No swelling, No other, No abrasion, No clubbing, No cyanosis, No ecchymosis, No laceration, No no lower extremity edema bilateral, No significant edema, No tenderness, No wound Neurologic/Psychiatric: No can tester II-XII nml as tested, No no motor/sensory deficits, No alert, No normal mood/affect, No oriented x 3, No abnormal cerebellar tests, No abnormal can tester II-XII, No abnormal gait, No aphasia, No EOM palsy, No facial droop, No motor weakness, No sensory deficit, No depressed affect, No disoriented x 3, No other, No grossly intact, No power is 5/5 both on sides Skin: No normal color, No warm/dry, No cyanosis, No cool, No diaphoresis, No damp, No ecchymosis, No jaundice, No mottled, No pallor, No rash, No tattoos/ piercings, No ulcerations, No rash on exposed areas, No ulcerations on exposed areas, No other Results/Procedures: Labs Laboratory Tests 07/05/16 03:40: Alanine Aminotransferase (ALT/SGPT) 23, Albumin 3.3, Alkaline Phosphatase 70, Anion Gap 10, Aspartate Amino Transf (AST/SGOT) 21, BUN/Creatinine Ratio 11, Basophils # (Auto) 0.0, Basophils (%) (Auto) 0, Blood Urea Nitrogen 8, Calcium Level 8.6, Carbon Dioxide Level 21, Chloride Level 109H, Creatinine 0.70, Eosinophils # (Auto) 0.1, Eosinophils (%) (Auto) 1, Estimat Glomerular Filtration Rate > 60, Glucose Level 117H, Hematocrit 36, Hemoglobin 11.9, Lymphocytes # (Auto) 1.5, Lymphocytes (%) (Auto) 16, Magnesium Level 1.8, Mean Corpuscular Hemoglobin 28, Mean Corpuscular Hemoglobin Concent 33, Mean Corpuscular Volume 86, Mean Platelet Volume 10.4, Monocytes # (Auto) 0.8, Monocytes (%) (Auto) 9, Neutrophils # (Auto) 6.8, Neutrophils (%) (Auto) 74, Phosphorus Level 2.6, Platelet Count 304, Potassium Level 3.7, Red Blood Count 4.22L, Red Cell Distribution Width 16.0H, Sodium Level 140, Total Bilirubin 0.5 , Total Protein 5.9L, White Blood Count 9.2 Microbiology 07/01/16 Blood Culture - Preliminary, Resulted No growth 07/03/16 Gram Stain - Final, Complete 07/03/16 Sputum Culture - Final, Complete Usual/normal saige isolated. A/P: Assessment/Dx: afib, CHF, CAD, infection Plan: Sepsis: Deferred to Dr. Amador. Coronary artery disease: Continue outpatient medicines. Congestive heart failure: Request an echocardiogram. Agree with IV Lasix. BNP mildly elevated. She is not in florid heart failure. Atrial fibrillation: converted to sinus rhythm. change IV cardizem to PO cardizem. Continue NOAC. discharge defer to Dr Amador. eTrri GALLARDO MD Jul 05, 2016 9:11 pm
[2016-07-05] MEDS ORDERED: cefTRIAXone 1 GM (ROCEPHIN) VIAL ONE (21:39)
[2016-07-05] MEDS ORDERED: NORMAL SALINE (BAXTER MINI) 50 ML IV ONE (21:40)
[2016-07-05] MEDS: ZOLPIDEM 5 MG (AMBIEN) TAB PO SCH (22:18)
[2016-07-05] MEDS: cefTRIAXone 1 GM/NS 50 ML IVPB IV SCH ×2 (22:18)
[2016-07-05] MEDS: ATORVASTATIN 40 MG (LIPITOR) TABLET PO SCH (22:19)
[2016-07-05] MEDS: meTOproloL SUCCINATE 50 MG (TOPROL XL) TAB PO SCH (22:20)
[2016-07-06] VITALS (7 sets, daily range): BP systolic 145–178; BP diastolic 62–79
[2016-07-06] MEDS: RT-ALBUTEROL/IPRATROPIUM 3 ML (DUONEB) VIAL INH SCH ×6 (02:00→21:46)
[2016-07-06 04:30] LABS: BASOPHILS % (AUTO) 0 % (0-10); EOSINOPHILS # (AUTO) 0.2 10^3/uL (0.0-0.3); EOSINOPHILS % (AUTO) 2 % (0-10); LYMPHOCYTES # (AUTO) 1.6 X 10^3 (1.0-4.0); LYMPHOCYTES % (AUTO) 20 % (12-44); MEAN CORPUSCULAR HEMOGLOBIN 28 PG (25-34); MEAN CORPUSCULAR HGB CONC 33 G/DL (32-36); MEAN CORPUSCULAR VOLUME 86 FL (80-99); MEAN PLATELET VOLUME 10.6 FL (7.4-10.4); MONOCYTES # (AUTO) 0.9 X 10^3 (0.0-1.0); MONOCYTES % (AUTO) 11 % (0-12); NEUTROPHILS # (AUTO) 5.5 X 10^3 (1.8-7.8); NEUTROPHILS % (AUTO) 67 % (42-75); PLATELET COUNT 331 10^3/uL (130-400); RED CELL DISTRIBUTION WIDTH 15.7 % (10.0-14.5); WHITE BLOOD COUNT 8.2 10^3/uL (4.3-11.0)
[2016-07-06 04:50] LABS: ANION GAP 9 MMOL/L (5-14); BLOOD UREA NITROGEN 7 MG/DL (7-18); BUN/CREATININE RATIO 10; CALCIUM 8.6 MG/DL (8.5-10.1); CARBON DIOXIDE 23 MMOL/L (21-32); CHLORIDE 109 MMOL/L (98-107); CREATININE SERUM 0.71 MG/DL (0.60-1.30); GFR ESTIMATED > 60; GLUCOSE 112 MG/DL (70-105); MAGNESIUM 1.7 MG/DL (1.8-2.4); PHOSPHORUS 3.7 MG/DL (2.3-4.7); POTASSIUM 3.5 MMOL/L (3.6-5.0); SODIUM 141 MMOL/L (135-145)
[2016-07-06] MEDS: OMEGA 3 (FISH OIL) 1000 MG CAP PO SCH ×2 (07:45→18:48)
[2016-07-06] MEDS ORDERED: MAGNESIUM 1 GM/100 ML IVPB 100 ML IV NR (07:46)
[2016-07-06] MEDS ORDERED: KCL 10 MEQ TAB (MICRO K) PO NR (07:46)
--- NOTE | 2016-07-06 07:55 | Progress Note (SOAP) ---
Subjective Subjective/Events-last exam patient feeling better. Patient still needs oxygen to get around. Magnesium slightly low. Potassium slightly low replaced both. Congestion in chest is less Objective Exam Vital Signs Date Time Temp Pulse Resp B/P Pulse Ox O2 Delivery O2 Flow Rate FiO2 07/06/16 04:00 99.3 82 20 158/79 92 Nasal Cannula 4.00 07/06/16 01:00 78 07/06/16 00:00 98.5 88 20 177/77 91 Nasal Cannula 4.00 07/05/16 22:43 94 Nasal Cannula 4.00 07/05/16 20:00 98.9 07/05/16 20:00 98.2 88 20 168/73 94 Nasal Cannula 5.00 07/05/16 20:00 95 Nasal Cannula 5.00 07/05/16 19:23 97 Nasal Cannula 5.00 07/05/16 19:00 80 07/05/16 16:13 97.8 86 16 163/74 95 Nasal Cannula 5.00 07/05/16 14:44 84 Nasal Cannula 3.00 07/05/16 13:00 86 07/05/16 12:00 92 Nasal Cannula 2.00 07/05/16 12:00 98.9 07/05/16 11:02 94 Nasal Cannula 3.00 07/05/16 09:40 99.5 73 30 143/75 89 3.00 07/05/16 08:00 92 Nasal Cannula 2.00 07/05/16 08:00 98.8 I & O 07/06/16 07:00 Intake Total 360 ml Output Total 1100 ml Balance -740 ml Capillary Refill : Less Than 3 SecondsNONE General Appearance: No Apparent Distress WD/WN HEENT: Normal ENT Inspection Neck: Full Range of Motion Normal Inspection Non Tender Respiratory: Chest Non Tender No Accessory Muscle Use No Respiratory Distress Other (lungs clear) Cardiovascular: No Murmur Gastrointestinal: non tender soft Results Lab Laboratory Tests 07/06/16 03:50: Anion Gap 9, BUN/Creatinine Ratio 10, Basophils # (Auto) 0.0, Basophils (%) ( Auto) 0, Blood Urea Nitrogen 7, Calcium Level 8.6, Carbon Dioxide Level 23, Chloride Level 109H, Creatinine 0.71, Eosinophils # (Auto) 0.2, Eosinophils (%) (Auto) 2, Estimat Glomerular Filtration Rate > 60, Glucose Level 112H, Hematocrit 35, Hemoglobin 11.5, Lymphocytes # (Auto) 1.6, Lymphocytes (%) (Auto ) 20, Magnesium Level 1.7L, Mean Corpuscular Hemoglobin 28, Mean Corpuscular Hemoglobin Concent 33, Mean Corpuscular Volume 86, Mean Platelet Volume 10.6H, Monocytes # (Auto) 0.9, Monocytes (%) (Auto) 11, Neutrophils # (Auto) 5.5, Neutrophils (%) (Auto) 67, Phosphorus Level 3.7, Platelet Count 331, Potassium Level 3.5L, Red Blood Count 4.10L, Red Cell Distribution Width 15.7H, Sodium Level 141, White Blood Count 8.2 Microbiology 07/01/16 Blood Culture - Preliminary, Resulted No growth 07/03/16 Gram Stain - Final, Complete 07/03/16 Sputum Culture - Final, Complete Usual/normal saige isolated. Assessment/Plan Assessment/Plan Assess & Plan/Chief Complaint new-onset atrial fibrillation. Temperature 105. Bronchitis. . 07/04/16. New-onset atrial fibrillation. Bronchitis. Coronary artery disease. Patient still feels weak. . 07/05/16. Atrial fibrillation now in sinus rhythm. Bronchitis. Coronary artery disease. Patient still on oxygen. Patient still weak. . 07/06/16. Bronchitis improving. Coronary artery disease. Hypertension. New-onset atrial fibrillation. Patient still needs her oxygen but is improving Diagnosis/Problems: Clinical Quality Measures DVT/VTE Risk/Contraindication: Risk Factor Score Per Nursin RFS Level Per Nursing on Admit: 4+=Very High Contraindications-Pharm: Other *list below* TORSTEN AQUINO DO Jul 06, 2016 07:55
[2016-07-06] MEDS: APIXABAN 5 MG (ELIQUIS) TABLET PO SCH ×2 (08:45→22:06)
[2016-07-06] MEDS: ASPIRIN E.C. 325 MG (ECOTRIN) TABLET PO SCH (08:45)
[2016-07-06] MEDS: DILTIAZEM 180 MG (CARDIZEM CD) CAP PO SCH (08:45)
[2016-07-06] MEDS: VITAMIN E 400 INTLU CAP PO SCH (08:46)
[2016-07-06] MEDS: DOXYCYCLINE 100 MG (VIBRAMYCIN) TABLET PO SCH ×2 (08:46→18:45)
--- NOTE | 2016-07-06 09:06 | Diagnostic Imaging Report ---
INDICATION: Shortness of air. TECHNIQUE: Single view chest at 4:55 AM. CORRELATION STUDY: 07/05/2016. FINDINGS: Moderate severity cardiac enlargement is again demonstrated. There is the presence of pulmonary vascular congestion and perihilar edema which appears increased from one day earlier. Prominent interstitial markings also appear slightly increased. The left lung base is somewhat obscured by the cardiac enlargement. IMPRESSION: Congestive heart failure including interstitial edema which overall appears increased in severity from one day earlier. Dictated by: Dictated on workstation # [id number]
[2016-07-06] MEDS: DOCOSANOL 10 % CREAM (ABREVA) 2 GM TP SCH ×4 (09:40→22:07)
--- NOTE | 2016-07-06 13:39 | Cardiology Progress Note ---
Cardiology SOAP Progress Note Subjective: sinus rhythm. no significant cardiac complaints. Objective: I&O/Vital Signs Vital Sign - Last 12Hours 07/06/16 07/06/16 07/06/16 07/06/16 04:00 07:03 08:30 08:50 Temp 99.3 99.0 Pulse 82 87 82 Resp 20 20 B/P 158/79 145/70 Pulse Ox 92 94 94 O2 Delivery Nasal Cannula Nasal Cannula Nasal Cannula O2 Flow Rate 4.00 4.00 4.00 07/06/16 07/06/16 10:39 11:10 Temp 97.4 Pulse 84 Resp 20 B/P 148/77 Pulse Ox 95 91 O2 Delivery Nasal Cannula Nasal Cannula O2 Flow Rate 3.50 2.00 Intake and Output 07/06/16 00:00 Intake Total 510 ml Output Total 1100 ml Balance -590 ml Weight (Pounds): 212 Weight (Ounces): 0.0 Weight (Calculated Kilograms): 96.160594 Constitutional: No appears stated age, No AAO x 3, No apparent distress, No PERRL, No well-developed, No well-nourished, No other Respiratory: No accessory muscle use, No respiratory distress, No chest tender , No chest expansion is symmetric, No chest is bilaterally symmetric, No lungs clear to percussion, No lungs clear to auscultation, No crackles, No rhonchi, No rales, No stridor, No wheezing, No pleural rub, No other Cardiovascular: No regular rate-rhythm, No extra beats, No parasternal heave is noted, No JVD, No edema, No bradycardia, No tachycardia, No point of maximal impulse, No cardiac thrills are palpable, No S1 and S2, No gallop/S3, No gallop/ S4, No diastolic murmur, No systolic murmur, No friction rub, No click, No other Gastrointestional: No tender, No soft, No round, No distended, No pulsatile mass, No organomegaly, No guarding, No rebound, No tenderness, No hernia, No mass, No audible bowel sounds, No abnormal bowel sounds, No abdominal bruits, No spleenomegaly, No other Extremities: No normal range of motion, No non-tender, No normal inspection, No pedal edema, No calf tenderness, No normal capillary refill, No pelvis stable , No calf tenderness, No inflammation, No pedal edema, No slow capillary refill , No swelling, No other, No abrasion, No clubbing, No cyanosis, No ecchymosis, No laceration, No no lower extremity edema bilateral, No significant edema, No tenderness, No wound Neurologic/Psychiatric: No special effects makeup artist II-XII nml as tested, No no motor/sensory deficits, No alert, No normal mood/affect, No oriented x 3, No abnormal cerebellar tests, No abnormal special effects makeup artist II-XII, No abnormal gait, No aphasia, No EOM palsy, No facial droop, No motor weakness, No sensory deficit, No depressed affect, No disoriented x 3, No other, No grossly intact, No power is 5/5 both on sides Skin: No normal color, No warm/dry, No cyanosis, No cool, No diaphoresis, No damp, No ecchymosis, No jaundice, No mottled, No pallor, No rash, No tattoos/ piercings, No ulcerations, No rash on exposed areas, No ulcerations on exposed areas, No other Results/Procedures: Labs Laboratory Tests 07/06/16 03:50: Anion Gap 9, BUN/Creatinine Ratio 10, Basophils # (Auto) 0.0, Basophils (%) ( Auto) 0, Blood Urea Nitrogen 7, Calcium Level 8.6, Carbon Dioxide Level 23, Chloride Level 109H, Creatinine 0.71, Eosinophils # (Auto) 0.2, Eosinophils (%) (Auto) 2, Estimat Glomerular Filtration Rate > 60, Glucose Level 112H, Hematocrit 35, Hemoglobin 11.5, Lymphocytes # (Auto) 1.6, Lymphocytes (%) (Auto ) 20, Magnesium Level 1.7L, Mean Corpuscular Hemoglobin 28, Mean Corpuscular Hemoglobin Concent 33, Mean Corpuscular Volume 86, Mean Platelet Volume 10.6H, Monocytes # (Auto) 0.9, Monocytes (%) (Auto) 11, Neutrophils # (Auto) 5.5, Neutrophils (%) (Auto) 67, Phosphorus Level 3.7, Platelet Count 331, Potassium Level 3.5L, Red Blood Count 4.10L, Red Cell Distribution Width 15.7H, Sodium Level 141, White Blood Count 8.2 Microbiology 07/01/16 Blood Culture - Preliminary, Resulted No growth 07/03/16 Gram Stain - Final, Complete 07/03/16 Sputum Culture - Final, Complete Usual/normal saige isolated. A/P: Assessment/Dx: afib, CHF, CAD, infection Plan: Sepsis: Deferred to Dr. Amador. Coronary artery disease: Continue outpatient medicines. Congestive heart failure: Agree with IV Lasix. BNP mildly elevated. She is not in florid heart failure. Atrial fibrillation: converted to sinus rhythm. change IV cardizem to PO cardizem. Continue NOAC. continue toprol xl. discharge defer to Dr Amador. f/up with Dr Watts as outpatient. Terri GALLARDO MD Jul 06, 2016 1:39 pm
[2016-07-06] MEDS ORDERED: FUROSEMIDE 40 MG/4 ML INJ (LASIX) IVP NR (15:45)
[2016-07-06] MEDS: ACETAMINOPHEN 500 MG TAB (TYLENOL) PO PRN (16:20)
[2016-07-06] MEDS: DIAZEPAM 5 MG (VALIUM) TABLET PO SCH (21:00)
[2016-07-06] MEDS ORDERED: NORMAL SALINE (BAXTER MINI) 50 ML IV ONE (21:57)
[2016-07-06] MEDS ORDERED: cefTRIAXone 1 GM (ROCEPHIN) VIAL ONE (21:57)
[2016-07-06] MEDS: ATORVASTATIN 40 MG (LIPITOR) TABLET PO SCH (22:07)
[2016-07-06] MEDS: meTOproloL SUCCINATE 50 MG (TOPROL XL) TAB PO SCH (22:07)
[2016-07-06] MEDS: cefTRIAXone 1 GM/NS 50 ML IVPB IV SCH ×2 (22:14)
[2016-07-06] MEDS: ZOLPIDEM 5 MG (AMBIEN) TAB PO SCH (22:17)
[2016-07-07 00:15] VITALS: BP 148/66
[2016-07-07] MEDS: RT-ALBUTEROL/IPRATROPIUM 3 ML (DUONEB) VIAL INH SCH ×3 (02:00→10:48)
[2016-07-07 04:00] VITALS: BP 127/58
[2016-07-07 06:05] LABS: BASOPHILS % (AUTO) 0 % (0-10); EOSINOPHILS # (AUTO) 0.1 10^3/uL (0.0-0.3); EOSINOPHILS % (AUTO) 1 % (0-10); LYMPHOCYTES # (AUTO) 1.6 X 10^3 (1.0-4.0); LYMPHOCYTES % (AUTO) 18 % (12-44); MEAN CORPUSCULAR HEMOGLOBIN 28 PG (25-34); MEAN CORPUSCULAR HGB CONC 33 G/DL (32-36); MEAN CORPUSCULAR VOLUME 86 FL (80-99); MEAN PLATELET VOLUME 10.3 FL (7.4-10.4); MONOCYTES # (AUTO) 0.9 X 10^3 (0.0-1.0); MONOCYTES % (AUTO) 10 % (0-12); NEUTROPHILS # (AUTO) 6.1 X 10^3 (1.8-7.8); NEUTROPHILS % (AUTO) 70 % (42-75); PLATELET COUNT 371 10^3/uL (130-400); RED BLOOD COUNT 4.42 10^6/uL (4.35-5.85); RED CELL DISTRIBUTION WIDTH 15.7 % (10.0-14.5); WHITE BLOOD COUNT 8.6 10^3/uL (4.3-11.0)
[2016-07-07 06:19] LABS: ALANINE AMINOTRANSFERASE 22 U/L (0-55); ALBUMIN 3.2 G/DL (3.2-4.5); ANION GAP 12 MMOL/L (5-14); ASPARTATE AMINO TRANSFERASE 22 U/L (5-34); BILIRUBIN,TOTAL 0.5 MG/DL (0.1-1.0); BLOOD UREA NITROGEN 6 MG/DL (7-18); BUN/CREATININE RATIO 8; CALCIUM 8.8 MG/DL (8.5-10.1); CARBON DIOXIDE 27 MMOL/L (21-32); CHLORIDE 104 MMOL/L (98-107); CREATININE SERUM 0.71 MG/DL (0.60-1.30); GFR ESTIMATED > 60; GLUCOSE 108 MG/DL (70-105); MAGNESIUM 1.8 MG/DL (1.8-2.4); POTASSIUM 3.6 MMOL/L (3.6-5.0); SODIUM 143 MMOL/L (135-145); TOTAL PROTEIN 5.9 G/DL (6.4-8.2)
[2016-07-07] MEDS: OMEGA 3 (FISH OIL) 1000 MG CAP PO SCH (06:20)
[2016-07-07] MEDS: DOXYCYCLINE 100 MG (VIBRAMYCIN) TABLET PO SCH (06:21)
--- NOTE | 2016-07-07 07:36 | Diagnostic Imaging Report ---
INDICATION: Dyspnea and congestive heart failure. PA and lateral views of the chest are obtained. Comparison is made study of 07/06/2016. FINDINGS: There is generalized cardiomegaly and pulmonary venous congestion with blunting of left costophrenic sulcus. Mild airspace disease is seen throughout the lungs which may represent edema or pneumonitis. There is no evidence of pneumothorax. IMPRESSION: Findings are suggestive of congestive heart failure with mild diffuse pulmonary edema and small left pleural effusion. Dictated by: Dictated on workstation # [id number]
[2016-07-07 07:55] VITALS: BP 135/77
--- NOTE | 2016-07-07 07:55 | Progress Note (SOAP) ---
Subjective Subjective/Events-last exam patient wants to go home today. Patient in sinus rhythm. Patient realizes she has to be on oxygen on home. Patient sciatica hurting needs muscle relaxant. Patient was 9 pounds since yesterday with Lasix Lung congestion has improved. Chest x-ray shows improvement. Bronchitis improving Objective Exam Vital Signs Date Time Temp Pulse Resp B/P Pulse Ox O2 Delivery O2 Flow Rate FiO2 07/07/16 07:40 95 Nasal Cannula 2.00 07/07/16 04:32 Nasal Cannula 2.00 07/07/16 04:00 97.5 81 19 127/58 93 Nasal Cannula 3.50 07/07/16 01:00 82 07/07/16 00:15 97.4 89 17 148/66 92 Nasal Cannula 3.50 07/06/16 21:47 94 Nasal Cannula 2.00 07/06/16 20:00 98.1 106 20 151/70 91 Nasal Cannula 2.00 07/06/16 20:00 94 Nasal Cannula 3.50 07/06/16 19:00 87 07/06/16 18:51 93 Nasal Cannula 2.00 07/06/16 15:15 99.5 91 20 178/62 93 Nasal Cannula 2.00 07/06/16 14:30 90 Nasal Cannula 2.00 07/06/16 14:25 90 2.00 07/06/16 12:54 86 07/06/16 11:10 97.4 84 20 148/77 91 Nasal Cannula 2.00 07/06/16 10:39 95 Nasal Cannula 3.50 07/06/16 08:50 94 Nasal Cannula 4.00 07/06/16 08:30 99.0 82 20 145/70 94 Nasal Cannula 4.00 I & O 07/07/16 07:00 Intake Total 3200 ml Output Total 3000 ml Balance 200 ml Capillary Refill : Less Than 3 SecondsNONE General Appearance: No Apparent Distress WD/WN HEENT: Normal ENT Inspection Neck: Full Range of Motion Normal Inspection Non Tender Respiratory: Chest Non Tender No Accessory Muscle Use No Respiratory Distress Other (gesture and better) Cardiovascular: Regular Rate, Rhythm No Murmur Gastrointestinal: non tender Results Lab Laboratory Tests 07/06/16 15:50: B-Type Natriuretic Peptide 355.6H 07/07/16 04:58: Alanine Aminotransferase (ALT/SGPT) 22, Albumin 3.2, Alkaline Phosphatase 73, Anion Gap 12, Aspartate Amino Transf (AST/SGOT) 22, BUN/Creatinine Ratio 8, Basophils # (Auto) 0.0, Basophils (%) (Auto) 0, Blood Urea Nitrogen 6L, Calcium Level 8.8, Carbon Dioxide Level 27, Chloride Level 104, Creatinine 0.71, Eosinophils # (Auto) 0.1, Eosinophils (%) (Auto) 1, Estimat Glomerular Filtration Rate > 60, Glucose Level 108H, Hematocrit 38, Hemoglobin 12.4, Lymphocytes # (Auto) 1.6, Lymphocytes (%) (Auto) 18, Magnesium Level 1.8, Mean Corpuscular Hemoglobin 28, Mean Corpuscular Hemoglobin Concent 33, Mean Corpuscular Volume 86, Mean Platelet Volume 10.3, Monocytes # (Auto) 0.9, Monocytes (%) (Auto) 10, Neutrophils # (Auto) 6.1, Neutrophils (%) (Auto) 70, Phosphorus Level 4.2, Platelet Count 371, Potassium Level 3.6, Red Blood Count 4.42, Red Cell Distribution Width 15.7H, Sodium Level 143, Total Bilirubin 0.5, Total Protein 5.9L, White Blood Count 8.6 Microbiology 07/01/16 Blood Culture - Preliminary, Resulted No growth 07/03/16 Gram Stain - Final, Complete 07/03/16 Sputum Culture - Final, Complete Usual/normal saige isolated. Assessment/Plan Assessment/Plan Assess & Plan/Chief Complaint new-onset atrial fibrillation. Temperature 105. Bronchitis. . 07/04/16. New-onset atrial fibrillation. Bronchitis. Coronary artery disease. Patient still feels weak. . 07/05/16. Atrial fibrillation now in sinus rhythm. Bronchitis. Coronary artery disease. Patient still on oxygen. Patient still weak. . 07/06/16. Bronchitis improving. Coronary artery disease. Hypertension. New-onset atrial fibrillation. Patient still needs her oxygen but is improving. . New-onset atrial fibrillation now patient in sinus rhythm area . Bronchitis improving. Coronary artery disease. Patient wants to go home. Patient will go home on oxygen Diagnosis/Problems: Clinical Quality Measures DVT/VTE Risk/Contraindication: Risk Factor Score Per Nursin RFS Level Per Nursing on Admit: 4+=Very High Contraindications-Pharm: Other *list below* TORSTEN AQUINO DO Jul 07, 2016 07:55
[2016-07-07] MEDS ORDERED: FURO-124 PO (08:05)
[2016-07-07] MEDS ORDERED: APIX5TAB PO (08:05)
--- NOTE | 2016-07-07 08:09 | Discharge Inst-Simple/Standard ---
Discharge Inst-Standard Patient Instructions/Follow Up Plan of Care/Instructions/FU: 2 L of nasal oxygen at home. Stop Plavix and aspirin. Flexeril 10 mg number 21 one 3 times a day. Cardiazem ER 180 mg 1 daily. Lasix 40 mg 1 daily eliquis 5 mg twice a day Activity as Tolerated: Yes Discharge Diet: Low Sodium Diet [facility] to [facility] next Monday TORSTEN AQUINO DO Jul 07, 2016 08:09
[2016-07-07] MEDS ORDERED: CYCL10TA9 PO (08:19)
[2016-07-07] MEDS ORDERED: DILT180C84 PO (08:19)
[2016-07-07] MEDS: DOCOSANOL 10 % CREAM (ABREVA) 2 GM TP SCH ×2 (08:47→11:39)
[2016-07-07] MEDS: DILTIAZEM 180 MG (CARDIZEM CD) CAP PO SCH (08:47)
[2016-07-07] MEDS: VITAMIN E 400 INTLU CAP PO SCH (08:48)
[2016-07-07] MEDS: APIXABAN 5 MG (ELIQUIS) TABLET PO SCH (08:48)
--- NOTE | 2016-07-07 10:32 | ECHOCARDIOGRAPHY REPORT ---
PROCEDURE PHYSICIAN: ROSAURA MERIDA DATE OF PROCEDURE: 07/06/2016 TWO DIMENSIONAL ECHOCARDIOGRAM REPORT PRIMARY PHYSICIAN: OTHER PHYSICIAN: REFERRING PHYSICIAN: Dr. Kurt Amador ORDERING PHYSICIAN: INDICATION FOR THE PROCEDURE: Sepsis MEASUREMENTS DERIVED VALUES LV DIAMETER (LAX) NORMALS NORMALS Diastolic 3.9 (3.6-5.2) Eject. Fract. 60% (60%+/-6%) Systolic (2.3-3.9) Diastolic Vol. % Shortening (0.22-0.42) Systolic Vol. Aortic Root IVS THICKNESS Diastolic 1.2 (0.6-1.1) LVPW THICKNESS Diastolic 1.2 (0.6-1.1) LA DIAMETER Systolic 3.9 (2.1-3.7) FINDINGS: 1. Technical quality is good. 2. The left ventricle is normal in size with normal contractility. Systolic function appeared to be normal. Estimated ejection fraction 60%. 3. The left atrium is normal in size. No clot or thrombus were seen within the left atrium. 4. The right atrium and right ventricle are normal in size. No clot or thrombus were seen within the right side. 5. Mitral valve is normal in morphology with mild mitral regurgitation noted by color Doppler flow. No mitral valve prolapse. No mitral valve stenosis. 6. Aortic valve is trileaflet with normal opening and closing pattern. No significant aortic stenosis or regurgitation was seen. 7. Tricuspid valve is normal in morphology with mild tricuspid regurgitation noted by color Doppler flow. Doppler across tricuspid valve estimated pulmonary artery pressure of 4+ right atrial pressure. 8. Pulmonic valve is functioning normally. 9. No pericardial effusion. CONCLUSION: 1. Normal left ventricular size and systolic function. Estimated ejection fraction 60%. 2. Mild mitral and tricuspid regurgitation. 3. Estimated pulmonary artery pressure of 10 mmHg Job ID: [id number] Dictated Date: 07/06/2016 19:59:04 Coffee Weigher Date: 07/07/2016 10:28:32 / kjs
[2016-07-07] MEDS: ACETAMINOPHEN 500 MG TAB (TYLENOL) PO PRN (11:03)
[2016-07-07] MEDS ORDERED: LISI-556 PO (11:31)
[2016-07-07 11:54] VITALS: BP 147/69
--- NOTE | 2016-07-07 13:15 | Cardiology Progress Note ---
Cardiology SOAP Progress Note Subjective: mild shortness of breath Objective: I&O/Vital Signs Vital Sign - Last 12Hours 07/07/16 07/07/16 07/07/16 07/07/16 04:00 04:32 07:00 07:40 Temp 97.5 Pulse 81 90 Resp 19 B/P 127/58 Pulse Ox 93 95 O2 Delivery Nasal Cannula Nasal Cannula Nasal Cannula O2 Flow Rate 3.50 2.00 2.00 07/07/16 07/07/16 07/07/16 07/07/16 07:55 08:15 10:49 11:54 Temp 98.0 99.2 Pulse 90 97 Resp 20 16 B/P 135/77 147/69 Pulse Ox 95 95 97 O2 Delivery Nasal Cannula Nasal Cannula Nasal Cannula Nasal Cannula O2 Flow Rate 2.00 3.00 2.00 2.00 2.00 2.00 Intake and Output 07/06/16 23:59 Intake Total 1350 ml Output Total 900 ml Balance 450 ml Weight (Pounds): 203 Weight (Ounces): 1.0 Weight (Calculated Kilograms): 92.746826 Constitutional: No appears stated age, No AAO x 3, No apparent distress, No PERRL, No well-developed, No well-nourished, No other Respiratory: No accessory muscle use, No respiratory distress, No chest tender , No chest expansion is symmetric, No chest is bilaterally symmetric, No lungs clear to percussion, No lungs clear to auscultation, No crackles, No rhonchi, No rales, No stridor, No wheezing, No pleural rub, No other Cardiovascular: No regular rate-rhythm, No extra beats, No parasternal heave is noted, No JVD, No edema, No bradycardia, No tachycardia, No point of maximal impulse, No cardiac thrills are palpable, No S1 and S2, No gallop/S3, No gallop/ S4, No diastolic murmur, No systolic murmur, No friction rub, No click, No other Gastrointestional: No tender, No soft, No round, No distended, No pulsatile mass, No organomegaly, No guarding, No rebound, No tenderness, No hernia, No mass, No audible bowel sounds, No abnormal bowel sounds, No abdominal bruits, No spleenomegaly, No other Extremities: No normal range of motion, No non-tender, No normal inspection, No pedal edema, No calf tenderness, No normal capillary refill, No pelvis stable , No calf tenderness, No inflammation, No pedal edema, No slow capillary refill , No swelling, No other, No abrasion, No clubbing, No cyanosis, No ecchymosis, No laceration, No no lower extremity edema bilateral, No significant edema, No tenderness, No wound Neurologic/Psychiatric: No product marketing executive II-XII nml as tested, No no motor/sensory deficits, No alert, No normal mood/affect, No oriented x 3, No abnormal cerebellar tests, No abnormal product marketing executive II-XII, No abnormal gait, No aphasia, No EOM palsy, No facial droop, No motor weakness, No sensory deficit, No depressed affect, No disoriented x 3, No other, No grossly intact, No power is 5/5 both on sides Skin: No normal color, No warm/dry, No cyanosis, No cool, No diaphoresis, No damp, No ecchymosis, No jaundice, No mottled, No pallor, No rash, No tattoos/ piercings, No ulcerations, No rash on exposed areas, No ulcerations on exposed areas, No other Results/Procedures: Labs Laboratory Tests 07/06/16 15:50: B-Type Natriuretic Peptide 355.6H 07/07/16 04:58: Alanine Aminotransferase (ALT/SGPT) 22, Albumin 3.2, Alkaline Phosphatase 73, Anion Gap 12, Aspartate Amino Transf (AST/SGOT) 22, BUN/Creatinine Ratio 8, Basophils # (Auto) 0.0, Basophils (%) (Auto) 0, Blood Urea Nitrogen 6L, Calcium Level 8.8, Carbon Dioxide Level 27, Chloride Level 104, Creatinine 0.71, Eosinophils # (Auto) 0.1, Eosinophils (%) (Auto) 1, Estimat Glomerular Filtration Rate > 60, Glucose Level 108H, Hematocrit 38, Hemoglobin 12.4, Lymphocytes # (Auto) 1.6, Lymphocytes (%) (Auto) 18, Magnesium Level 1.8, Mean Corpuscular Hemoglobin 28, Mean Corpuscular Hemoglobin Concent 33, Mean Corpuscular Volume 86, Mean Platelet Volume 10.3, Monocytes # (Auto) 0.9, Monocytes (%) (Auto) 10, Neutrophils # (Auto) 6.1, Neutrophils (%) (Auto) 70, Phosphorus Level 4.2, Platelet Count 371, Potassium Level 3.6, Red Blood Count 4.42, Red Cell Distribution Width 15.7H, Sodium Level 143, Total Bilirubin 0.5, Total Protein 5.9L, White Blood Count 8.6 Microbiology 07/01/16 Blood Culture - Preliminary, Resulted No growth 07/03/16 Gram Stain - Final, Complete 07/03/16 Sputum Culture - Final, Complete Usual/normal saige isolated. A/P: Assessment/Dx: afib, CHF, CAD, infection Plan: Sepsis: Deferred to Dr. Amador. Coronary artery disease: Continue outpatient medicines. acute on chronic diastolic Congestive heart failure: BNP mildly elevated. She is not in florid heart failure. Atrial fibrillation: converted to sinus rhythm. change IV cardizem to PO cardizem. Continue NOAC. continue toprol xl. discharge today f/up with Dr Watts as outpatient. Terri GALLARDO MD Jul 07, 2016 1:15 pm
[2016-07-07 13:55] VITALS: BP 147/69
--- NOTE | 2016-07-11 08:35 | Discharge Summary ---
Diagnosis/Chief Complaint Date of Admission Jul 01, 2016 at 19:25 Date of Discharge Jul 07, 2016 at 13:55 Discharge Date: Jul 07, 2016 Admission Diagnosis Admission Diagnosis febrile. Sepsis. Bronchitis with hypoxia. Abdominal discomfort Discharge Diagnosis sepsis. Acute on chronic diastolic congestive heart failure. Bronchitis. Hypoxemia. Gastroenteritis acute. Coronary artery disease. Atrial fibrillation. DO NOT RESUSCITATE. Hyperlipidemia. , Anxiety disorder. History of stents coronary Reason Hospital Visit patient came out to the emergency room feeling terrible. Temperature 105. Nausea and vomiting 2 and diarrhea 2. Lower abdominal and suprapubic pain. Coughing and chest tightness. Onset last with the problems area Patient admitted for sepsis, respiratory problem and gastroenteritis Patient has history of heart disease and had stents Discharge Summary Consultations cardiology Discharge Physical Examination Allergies: Coded Allergies: morphine (Verified Allergy, Unknown, 08/05/08) Vitals & I&Os Vital Signs Date Time Temp Pulse Resp B/P Pulse Ox O2 Delivery O2 Flow Rate FiO2 07/07/16 13:55 97 16 147/69 97 Nasal Cannula 2.00 07/07/16 11:54 99.2 Hospital Course Labs (last 24 hrs) Laboratory Tests 07/01/16 17:55: Activated Partial Thromboplast Time 28, Alanine Aminotransferase (ALT/SGPT) 37, Albumin 3.9, Alkaline Phosphatase 99, Anion Gap 11, Aspartate Amino Transf (AST/ SGOT) 39H, B-Type Natriuretic Peptide 85.1, BUN/Creatinine Ratio 13, Band Neutrophils 12, Basophils # (Auto) 0.0, Basophils % (Manual) 1, Basophils (%) ( Auto) 0, Blood Morphology Comment NORMAL, Blood Urea Nitrogen 15, Calcium Level 8.7, Carbon Dioxide Level 21, Chloride Level 104, Creatine Kinase MB 1.7, Creatinine 1.15, Eosinophils # (Auto) 0.1, Eosinophils % (Manual) 0, Eosinophils (%) (Auto) 0, Estimat Glomerular Filtration Rate 46, Glucose Level 118H, Hematocrit 42, Hemoglobin 14.1, INR Comment 1.1, Lactic Acid Level 1.7, Lymphocytes # (Auto) 0.8L, Lymphocytes % (Manual) 6, Lymphocytes (%) (Auto) 5L, Magnesium Level 1.4L, Mean Corpuscular Hemoglobin 28, Mean Corpuscular Hemoglobin Concent 34, Mean Corpuscular Volume 83, Mean Platelet Volume 10.4, Monocytes # (Auto) 0.9, Monocytes % (Manual) 4, Monocytes (%) (Auto) 6, Neutrophils # (Auto) 13.8H, Neutrophils % (Manual) 77, Neutrophils (%) (Auto) 89H, Platelet Count 346, Potassium Level 4.0, Prothrombin Time 13.7, Red Blood Count 5.05, Red Cell Distribution Width 15.5H, Sodium Level 136, Total Bilirubin 0.4, Total Creatine Kinase 109, Total Protein 6.7, Troponin I < 0.30, White Blood Count 15.6H 07/01/16 18:18: Urine Bacteria NONE, Urine Bilirubin NEGATIVE, Urine Casts NONE, Urine Clarity CLEAR, Urine Color YELLOW, Urine Crystals NONE, Urine Culture Indicated NO, Urine Glucose (UA) NEGATIVE, Urine Ketones NEGATIVE, Urine Leukocyte Esterase 1+ H, Urine Mucus NEGATIVE, Urine Nitrite NEGATIVE, Urine Protein NEGATIVE, Urine RBC NONE, Urine RBC (Auto) NEGATIVE, Urine Specific [place] 1.010L, Urine Squamous Epithelial Cells 2-5, Urine Urobilinogen NORMAL, Urine WBC 2-5, Urine pH 6 07/02/16 00:14: Troponin I < 0.30, Myoglobin 111.6H 07/02/16 03:49: Alanine Aminotransferase (ALT/SGPT) 27, Albumin 3.0L, Alkaline Phosphatase 65, Anion Gap 9, Aspartate Amino Transf (AST/SGOT) 30, BUN/Creatinine Ratio 18, Basophils # (Auto) 0.0, Basophils (%) (Auto) 0, Blood Urea Nitrogen 16, Calcium Level 7.2L, Carbon Dioxide Level 19L, Chloride Level 113H, Creatinine 0.87, Eosinophils # (Auto) 0.1, Eosinophils (%) (Auto) 1, Estimat Glomerular Filtration Rate > 60, Glucose Level 106H, Hematocrit 36, Hemoglobin 11.7, Lymphocytes # (Auto) 2.2, Lymphocytes (%) (Auto) 24, Magnesium Level 1.4L, Mean Corpuscular Hemoglobin 28, Mean Corpuscular Hemoglobin Concent 33, Mean Corpuscular Volume 86, Mean Platelet Volume 10.8H, Monocytes # (Auto) 0.9, Monocytes (%) (Auto) 10, Neutrophils # (Auto) 6.0, Neutrophils (%) (Auto) 65, Platelet Count 276, Potassium Level 3.4L, Red Blood Count 4.15L, Red Cell Distribution Width 15.6H, Sodium Level 141, Total Bilirubin 0.2, Total Protein 5.2L, White Blood Count 9.2, Cholesterol Level 88, HDL Cholesterol 21L, LDL Cholesterol Direct 52, Phosphorus Level 3.6, Triglycerides Level 74, VLDL Cholesterol 15 07/03/16 04:49: Alanine Aminotransferase (ALT/SGPT) 28, Albumin 3.5, Alkaline Phosphatase 70, Anion Gap 11, Aspartate Amino Transf (AST/SGOT) 25, B-Type Natriuretic Peptide 406.9H, BUN/Creatinine Ratio 8, Basophils # (Auto) 0.0, Basophils (%) (Auto) 0, Blood Urea Nitrogen 6L, Calcium Level 8.2L, Carbon Dioxide Level 17L, Chloride Level 113H, Creatinine 0.74, Eosinophils # (Auto) 0.0, Eosinophils (%) (Auto) 0 , Estimat Glomerular Filtration Rate > 60, Glucose Level 149H, Hematocrit 39, Hemoglobin 12.6, Lymphocytes # (Auto) 0.9L, Lymphocytes (%) (Auto) 7L, Magnesium Level 1.8, Mean Corpuscular Hemoglobin 28, Mean Corpuscular Hemoglobin Concent 32, Mean Corpuscular Volume 87, Mean Platelet Volume 10.8H, Monocytes # (Auto) 0.7, Monocytes (%) (Auto) 6, Neutrophils # (Auto) 11.8H, Neutrophils (%) (Auto) 88H, Platelet Count 312, Potassium Level 4.1, Red Blood Count 4.52, Red Cell Distribution Width 16.1H, Sodium Level 141, Total Bilirubin 0.3, Total Protein 6.2L, Troponin I < 0.30, White Blood Count 13.5H 07/04/16 04:41: Anion Gap 10, BUN/Creatinine Ratio 9, Basophils # (Auto) 0.0, Basophils (%) ( Auto) 0, Blood Urea Nitrogen 7, Calcium Level 8.5, Carbon Dioxide Level 20L, Chloride Level 107, Creatinine 0.77, Eosinophils # (Auto) 0.0, Eosinophils (%) ( Auto) 0, Estimat Glomerular Filtration Rate > 60, Glucose Level 116H, Hematocrit 36, Hemoglobin 11.8, Lymphocytes # (Auto) 1.3, Lymphocytes (%) (Auto ) 12, Magnesium Level 1.8, Mean Corpuscular Hemoglobin 28, Mean Corpuscular Hemoglobin Concent 32, Mean Corpuscular Volume 87, Mean Platelet Volume 10.5H, Monocytes # (Auto) 0.9, Monocytes (%) (Auto) 8, Neutrophils # (Auto) 9.1H, Neutrophils (%) (Auto) 80H, Platelet Count 283, Potassium Level 3.9, Red Blood Count 4.20L, Red Cell Distribution Width 16.3H, Sodium Level 137, White Blood Count 11.4H, Phosphorus Level 2.3, Thyroid Stimulating Hormone (TSH) 0.64 07/05/16 03:40: Alanine Aminotransferase (ALT/SGPT) 23, Albumin 3.3, Alkaline Phosphatase 70, Anion Gap 10, Aspartate Amino Transf (AST/SGOT) 21, BUN/Creatinine Ratio 11, Basophils # (Auto) 0.0, Basophils (%) (Auto) 0, Blood Urea Nitrogen 8, Calcium Level 8.6, Carbon Dioxide Level 21, Chloride Level 109H, Creatinine 0.70, Eosinophils # (Auto) 0.1, Eosinophils (%) (Auto) 1, Estimat Glomerular Filtration Rate > 60, Glucose Level 117H, Hematocrit 36, Hemoglobin 11.9, Lymphocytes # (Auto) 1.5, Lymphocytes (%) (Auto) 16, Magnesium Level 1.8, Mean Corpuscular Hemoglobin 28, Mean Corpuscular Hemoglobin Concent 33, Mean Corpuscular Volume 86, Mean Platelet Volume 10.4, Monocytes # (Auto) 0.8, Monocytes (%) (Auto) 9, Neutrophils # (Auto) 6.8, Neutrophils (%) (Auto) 74, Platelet Count 304, Potassium Level 3.7, Red Blood Count 4.22L, Red Cell Distribution Width 16.0H, Sodium Level 140, Total Bilirubin 0.5, Total Protein 5.9L, White Blood Count 9.2, Phosphorus Level 2.6 07/06/16 03:50: Anion Gap 9, BUN/Creatinine Ratio 10, Basophils # (Auto) 0.0, Basophils (%) ( Auto) 0, Blood Urea Nitrogen 7, Calcium Level 8.6, Carbon Dioxide Level 23, Chloride Level 109H, Creatinine 0.71, Eosinophils # (Auto) 0.2, Eosinophils (%) (Auto) 2, Estimat Glomerular Filtration Rate > 60, Glucose Level 112H, Hematocrit 35, Hemoglobin 11.5, Lymphocytes # (Auto) 1.6, Lymphocytes (%) (Auto ) 20, Magnesium Level 1.7L, Mean Corpuscular Hemoglobin 28, Mean Corpuscular Hemoglobin Concent 33, Mean Corpuscular Volume 86, Mean Platelet Volume 10.6H, Monocytes # (Auto) 0.9, Monocytes (%) (Auto) 11, Neutrophils # (Auto) 5.5, Neutrophils (%) (Auto) 67, Platelet Count 331, Potassium Level 3.5L, Red Blood Count 4.10L, Red Cell Distribution Width 15.7H, Sodium Level 141, White Blood Count 8.2, Phosphorus Level 3.7 07/06/16 15:50: B-Type Natriuretic Peptide 355.6H 07/07/16 04:58: Alanine Aminotransferase (ALT/SGPT) 22, Albumin 3.2, Alkaline Phosphatase 73, Anion Gap 12, Aspartate Amino Transf (AST/SGOT) 22, BUN/Creatinine Ratio 8, Basophils # (Auto) 0.0, Basophils (%) (Auto) 0, Blood Urea Nitrogen 6L, Calcium Level 8.8, Carbon Dioxide Level 27, Chloride Level 104, Creatinine 0.71, Eosinophils # (Auto) 0.1, Eosinophils (%) (Auto) 1, Estimat Glomerular Filtration Rate > 60, Glucose Level 108H, Hematocrit 38, Hemoglobin 12.4, Lymphocytes # (Auto) 1.6, Lymphocytes (%) (Auto) 18, Magnesium Level 1.8, Mean Corpuscular Hemoglobin 28, Mean Corpuscular Hemoglobin Concent 33, Mean Corpuscular Volume 86, Mean Platelet Volume 10.3, Monocytes # (Auto) 0.9, Monocytes (%) (Auto) 10, Neutrophils # (Auto) 6.1, Neutrophils (%) (Auto) 70, Phosphorus Level 4.2, Platelet Count 371, Potassium Level 3.6, Red Blood Count 4.42, Red Cell Distribution Width 15.7H, Sodium Level 143, Total Bilirubin 0.5, Total Protein 5.9L, White Blood Count 8.6 Microbiology 07/01/16 Blood Culture - Final, Complete No growth 07/03/16 Gram Stain - Final, Complete 07/03/16 Sputum Culture - Final, Complete Usual/normal saige isolated. Laboratory Tests 07/01/16 17:55 07/02/16 03:49 07/03/16 04:49 07/04/16 04:41 07/05/16 03:40 07/06/16 03:50 07/07/16 04:58 Pending Labs Microbiology Date/Time Source Procedure Growth Status 07/01/16 18:05 Peripheral Rt Hand Blood Culture - Final No growth Complete 07/01/16 17:55 Peripheral Rt Hand Blood Culture - Final No growth Complete 07/03/16 16:30 Sputum Expectorated Gram Stain - Final Complete 07/03/16 16:30 Sputum Expectorated Sputum Culture - Final Usual/normal saige isolated. Complete 07/01/16 17:58 Nasopharynx Influenza Types A,B Antigen (RACHEL) - Final Complete Laboratory Tests 07/01/16 17:55: Activated Partial Thromboplast Time 28, Alanine Aminotransferase (ALT/SGPT) 37, Albumin 3.9, Alkaline Phosphatase 99, Anion Gap 11, Aspartate Amino Transf (AST/ SGOT) 39, B-Type Natriuretic Peptide 85.1, BUN/Creatinine Ratio 13, Band Neutrophils 12, Basophils # (Auto) 0.0, Basophils % (Manual) 1, Basophils (%) ( Auto) 0, Blood Morphology Comment NORMAL, Blood Urea Nitrogen 15, Calcium Level 8.7, Carbon Dioxide Level 21, Chloride Level 104, Creatine Kinase MB 1.7, Creatinine 1.15, Eosinophils # (Auto) 0.1, Eosinophils % (Manual) 0, Eosinophils (%) (Auto) 0, Estimat Glomerular Filtration Rate 46, Glucose Level 118, Hematocrit 42, Hemoglobin 14.1, INR Comment 1.1, Lactic Acid Level 1.7, Lymphocytes # (Auto) 0.8, Lymphocytes % (Manual) 6, Lymphocytes (%) (Auto) 5, Magnesium Level 1.4, Mean Corpuscular Hemoglobin 28, Mean Corpuscular Hemoglobin Concent 34, Mean Corpuscular Volume 83, Mean Platelet Volume 10.4, Monocytes # (Auto) 0.9, Monocytes % (Manual) 4, Monocytes (%) (Auto) 6, Neutrophils # (Auto) 13.8, Neutrophils % (Manual) 77, Neutrophils (%) (Auto) 89 , Platelet Count 346, Potassium Level 4.0, Prothrombin Time 13.7, Red Blood Count 5.05, Red Cell Distribution Width 15.5, Sodium Level 136, Total Bilirubin 0.4, Total Creatine Kinase 109, Total Protein 6.7, Troponin I < 0.30, White Blood Count 15.6 07/01/16 18:18: Urine Bacteria NONE, Urine Bilirubin NEGATIVE, Urine Casts NONE, Urine Clarity CLEAR, Urine Color YELLOW, Urine Crystals NONE, Urine Culture Indicated NO, Urine Glucose (UA) NEGATIVE, Urine Ketones NEGATIVE, Urine Leukocyte Esterase 1+ , Urine Mucus NEGATIVE, Urine Nitrite NEGATIVE, Urine Protein NEGATIVE, Urine RBC NONE, Urine RBC (Auto) NEGATIVE, Urine Specific [place] 1.010, Urine Squamous Epithelial Cells 2-5, Urine Urobilinogen NORMAL, Urine WBC 2-5, Urine pH 6 07/02/16 00:14: Troponin I < 0.30, Myoglobin 111.6 07/02/16 03:49: Alanine Aminotransferase (ALT/SGPT) 27, Albumin 3.0, Alkaline Phosphatase 65, Anion Gap 9, Aspartate Amino Transf (AST/SGOT) 30, BUN/Creatinine Ratio 18, Basophils # (Auto) 0.0, Basophils (%) (Auto) 0, Blood Urea Nitrogen 16, Calcium Level 7.2, Carbon Dioxide Level 19, Chloride Level 113, Creatinine 0.87, Eosinophils # (Auto) 0.1, Eosinophils (%) (Auto) 1, Estimat Glomerular Filtration Rate > 60, Glucose Level 106, Hematocrit 36, Hemoglobin 11.7, Lymphocytes # (Auto) 2.2, Lymphocytes (%) (Auto) 24, Magnesium Level 1.4, Mean Corpuscular Hemoglobin 28, Mean Corpuscular Hemoglobin Concent 33, Mean Corpuscular Volume 86, Mean Platelet Volume 10.8, Monocytes # (Auto) 0.9, Monocytes (%) (Auto) 10, Neutrophils # (Auto) 6.0, Neutrophils (%) (Auto) 65, Platelet Count 276, Potassium Level 3.4, Red Blood Count 4.15, Red Cell Distribution Width 15.6, Sodium Level 141, Total Bilirubin 0.2, Total Protein 5.2, White Blood Count 9.2, Cholesterol Level 88, HDL Cholesterol 21, LDL Cholesterol Direct 52, Phosphorus Level 3.6, Triglycerides Level 74, VLDL Cholesterol 15 07/03/16 04:49: Alanine Aminotransferase (ALT/SGPT) 28, Albumin 3.5, Alkaline Phosphatase 70, Anion Gap 11, Aspartate Amino Transf (AST/SGOT) 25, B-Type Natriuretic Peptide 406.9, BUN/Creatinine Ratio 8, Basophils # (Auto) 0.0, Basophils (%) (Auto) 0, Blood Urea Nitrogen 6, Calcium Level 8.2, Carbon Dioxide Level 17, Chloride Level 113, Creatinine 0.74, Eosinophils # (Auto) 0.0, Eosinophils (%) (Auto) 0, Estimat Glomerular Filtration Rate > 60, Glucose Level 149, Hematocrit 39, Hemoglobin 12.6, Lymphocytes # (Auto) 0.9, Lymphocytes (%) (Auto) 7, Magnesium Level 1.8, Mean Corpuscular Hemoglobin 28, Mean Corpuscular Hemoglobin Concent 32, Mean Corpuscular Volume 87, Mean Platelet Volume 10.8, Monocytes # (Auto) 0.7, Monocytes (%) (Auto) 6, Neutrophils # (Auto) 11.8, Neutrophils (%) (Auto) 88, Platelet Count 312, Potassium Level 4.1, Red Blood Count 4.52, Red Cell Distribution Width 16.1, Sodium Level 141, Total Bilirubin 0.3, Total Protein 6.2, Troponin I < 0.30, White Blood Count 13.5 07/04/16 04:41: Anion Gap 10, BUN/Creatinine Ratio 9, Basophils # (Auto) 0.0, Basophils (%) ( Auto) 0, Blood Urea Nitrogen 7, Calcium Level 8.5, Carbon Dioxide Level 20, Chloride Level 107, Creatinine 0.77, Eosinophils # (Auto) 0.0, Eosinophils (%) ( Auto) 0, Estimat Glomerular Filtration Rate > 60, Glucose Level 116, Hematocrit 36, Hemoglobin 11.8, Lymphocytes # (Auto) 1.3, Lymphocytes (%) (Auto) 12, Magnesium Level 1.8, Mean Corpuscular Hemoglobin 28, Mean Corpuscular Hemoglobin Concent 32, Mean Corpuscular Volume 87, Mean Platelet Volume 10.5, Monocytes # (Auto) 0.9, Monocytes (%) (Auto) 8, Neutrophils # (Auto) 9.1, Neutrophils (%) (Auto) 80, Platelet Count 283, Potassium Level 3.9, Red Blood Count 4.20, Red Cell Distribution Width 16.3, Sodium Level 137, White Blood Count 11.4, Phosphorus Level 2.3, Thyroid Stimulating Hormone (TSH) 0.64 07/05/16 03:40: Alanine Aminotransferase (ALT/SGPT) 23, Albumin 3.3, Alkaline Phosphatase 70, Anion Gap 10, Aspartate Amino Transf (AST/SGOT) 21, BUN/Creatinine Ratio 11, Basophils # (Auto) 0.0, Basophils (%) (Auto) 0, Blood Urea Nitrogen 8, Calcium Level 8.6, Carbon Dioxide Level 21, Chloride Level 109, Creatinine 0.70, Eosinophils # (Auto) 0.1, Eosinophils (%) (Auto) 1, Estimat Glomerular Filtration Rate > 60, Glucose Level 117, Hematocrit 36, Hemoglobin 11.9, Lymphocytes # (Auto) 1.5, Lymphocytes (%) (Auto) 16, Magnesium Level 1.8, Mean Corpuscular Hemoglobin 28, Mean Corpuscular Hemoglobin Concent 33, Mean Corpuscular Volume 86, Mean Platelet Volume 10.4, Monocytes # (Auto) 0.8, Monocytes (%) (Auto) 9, Neutrophils # (Auto) 6.8, Neutrophils (%) (Auto) 74, Platelet Count 304, Potassium Level 3.7, Red Blood Count 4.22, Red Cell Distribution Width 16.0, Sodium Level 140, Total Bilirubin 0.5, Total Protein 5.9, White Blood Count 9.2, Phosphorus Level 2.6 07/06/16 03:50: Anion Gap 9, BUN/Creatinine Ratio 10, Basophils # (Auto) 0.0, Basophils (%) ( Auto) 0, Blood Urea Nitrogen 7, Calcium Level 8.6, Carbon Dioxide Level 23, Chloride Level 109, Creatinine 0.71, Eosinophils # (Auto) 0.2, Eosinophils (%) ( Auto) 2, Estimat Glomerular Filtration Rate > 60, Glucose Level 112, Hematocrit 35, Hemoglobin 11.5, Lymphocytes # (Auto) 1.6, Lymphocytes (%) (Auto) 20, Magnesium Level 1.7, Mean Corpuscular Hemoglobin 28, Mean Corpuscular Hemoglobin Concent 33, Mean Corpuscular Volume 86, Mean Platelet Volume 10.6, Monocytes # (Auto) 0.9, Monocytes (%) (Auto) 11, Neutrophils # (Auto) 5.5, Neutrophils (%) (Auto) 67, Platelet Count 331, Potassium Level 3.5, Red Blood Count 4.10, Red Cell Distribution Width 15.7, Sodium Level 141, White Blood Count 8.2, Phosphorus Level 3.7 07/06/16 15:50: B-Type Natriuretic Peptide 355.6 07/07/16 04:58: Alanine Aminotransferase (ALT/SGPT) 22, Albumin 3.2, Alkaline Phosphatase 73, Anion Gap 12, Aspartate Amino Transf (AST/SGOT) 22, BUN/Creatinine Ratio 8, Basophils # (Auto) 0.0, Basophils (%) (Auto) 0, Blood Urea Nitrogen 6, Calcium Level 8.8, Carbon Dioxide Level 27, Chloride Level 104, Creatinine 0.71, Eosinophils # (Auto) 0.1, Eosinophils (%) (Auto) 1, Estimat Glomerular Filtration Rate > 60, Glucose Level 108, Hematocrit 38, Hemoglobin 12.4, Lymphocytes # (Auto) 1.6, Lymphocytes (%) (Auto) 18, Magnesium Level 1.8, Mean Corpuscular Hemoglobin 28, Mean Corpuscular Hemoglobin Concent 33, Mean Corpuscular Volume 86, Mean Platelet Volume 10.3, Monocytes # (Auto) 0.9, Monocytes (%) (Auto) 10, Neutrophils # (Auto) 6.1, Neutrophils (%) (Auto) 70, Phosphorus Level 4.2, Platelet Count 371, Potassium Level 3.6, Red Blood Count 4.42, Red Cell Distribution Width 15.7, Sodium Level 143, Total Bilirubin 0.5, Total Protein 5.9, White Blood Count 8.6 Radiology Reviewed chest x-ray bilateral interstitial opacities which may relate to mild pulmonary edema. Chest x-ray CHF Discussion & Recommendations patient went back into sinus rhythm. Patient lost 9 pounds with Lasix The patient wanted to go home Patient sent home on oxygen Discharge Home Medications: Active Scripts Active Lisinopril 5 Mg Tablet 5 Mg PO DAILY Cyclobenzaprine HCl 10 Mg Tablet 10 Mg PO TID 7 Days Diltiazem 24Hr Cd (Diltiazem HCl) 180 Mg Cap.er.24h 180 Mg PO DAILY 30 Days Lasix (Furosemide) 40 Mg Tablet 1 Mg PO DAILY Eliquis (Apixaban) 5 Mg Tablet 5 Mg PO BID Reported Combivent Respimat Inhal Violet (Albuterol/Ipratropium) 4 Gm Aero 1 Puff INH TID PRN Metoprolol Succinate 50 Mg Tab.er.24h 50 Mg PO DAILY Garlic 1 Each Capsule 1 Cap PO DAILY Vitamin E (Vitamin E Mixed) 400 Unit Tablet 400 Unit PO DAILY Fish Oil 1,200 Mg Softgel (Hazel-3S/Dha/Epa/Fish Oil) 1 Each Capsule 1,200 Mg PO BID Atorvastatin Calcium 40 Mg Tablet 40 Mg PO HS Diazepam 5 Mg (Diazepam) 5 Mg Tablet 2.5 Mg PO HS TAKES 1/2 (5MG) TABLET Nitrostat (Nitroglycerin) 0.4 Mg Subl 0.4 Mg SL UD PRN Instructions to patient/family Please see electonic discharge instructions given to patient. Clinical Quality Measures DVT/VTE Risk/Contraindication: Risk Factor Score Per Nursin RFS Level Per Nursing on Admit: 4+=Very High Contraindications-Pharm: Other *list below* TORSTEN AQUINO DO Jul 11, 2016 08:35
== END 2016-07-07 13:55 | disposition home or self-care (01) | DRG 871 ==
LOC: EDUNIT# 17:13 → ER 17:15 → ICU 19:25 → 4TH 07-02 16:00 → ICU 07-03 06:00 → CSD 07-05 14:38
PROVIDERS: ADMIT Family Medicine; ATTEND Family Medicine
DX: A41.9 Sepsis, unspecified organism (principal); I50.33 Acute on chronic diastolic (congestive) heart failure; J40 Bronchitis, not specified as acute or chronic; R09.02 Hypoxemia; K52.9 Noninfective gastroenteritis and colitis, unspecified; I25.10 Atherosclerotic heart disease of native coronary artery without angina pectoris; I48.91 Unspecified atrial fibrillation; Z66 Do not resuscitate; E78.00 Pure hypercholesterolemia, unspecified; I10 Essential (primary) hypertension; J44.9 Chronic obstructive pulmonary disease, unspecified; F41.9 Anxiety disorder, unspecified; F32.9 Major depressive disorder, single episode, unspecified; Z95.5 Presence of coronary angioplasty implant and graft; Z87.891 Personal history of nicotine dependence
CPT/HCPCS: 36415; 71010; 71020; 71250; 74176; 80048; 80053; 80061; 81000; 82550; 82553; 83605; 83735; 83874; 83880; 84100; 84443; 84484; 85007; 85025; 85027; 85610; 85730; 87040; 87070; 87205; 87804; 93005; 93041; 93306; 94640; 94664; 94760; 94761; 96361; 96365; 96375

== ENCOUNTER → 2016-10-04 | Outpatient (CLI) | payer MEDICARE, MEDICAID ==
[~2016-10-04] MED LIST changes: +APIX5TAB PO; +CATHETER FLUSH 10 ML SYR IV PRN; +CYCL10TA9 PO; +DILT180C84 PO; +FURO-124 PO; +IPRA4AER INH; +LISI-556 PO; +REGADENOSON 0.4 MG/5 ML SYR (LEXISCAN) IV ONE
[2016-10-04 09:16] VITALS: BP 159/73
[2016-10-04 09:23] VITALS: BP 145/71
[2016-10-04 09:25] VITALS: BP 150/68
[2016-10-04 09:27] VITALS: BP 153/70
--- NOTE | 2016-10-06 10:53 | STRESS TEST ---
PROCEDURE PHYSICIAN: NEHEMIAH BLAIR RESTING AND POST REGADENOSON TECHNETIUM 99M TETROFOSMIN SPECT CT IMAGING DATE OF PROCEDURE: 10/04/2016 Baseline images were carried out after injection of 10.73 mCi technetium 99m tetrofosmin. This was followed by 0.4 mg of regadenoson and 32.6 mCi technetium 99m tetrofosmin for stress imaging. The electrocardiogram showed sinus rhythm at baseline and did not change significantly with regadenoson infusion. She had mild shortness of breath and some jaw discomfort on regadenoson infusion, which resolved in a few minutes. Overall, she tolerated the procedure well. Review of images at rest and following stress, does not indicate any distinct perfusion defects consistent with significant myocardial ischemia or infarction. Gated images show normal global left ventricular systolic function with normal regional wall motion. Left ventricular ejection fraction is calculated to be 81%. Left ventricular end-diastolic volume is 28 mL. TID is absent (0.97. CONCLUSION: 1. No evidence of any significant myocardial ischemia or infarction on this study. 2. Normal regional wall motion. 3. Normal global left ventricular systolic function with a calculated ejection fraction of 81%. Job ID: [id number] Dictated Date: 10/06/2016 09:16:41 Engine Assembly Supervisor Date: 10/06/2016 10:49:43 / vandana
== END ==
LOC: CARD 07:27
PROVIDERS: ATTEND Internal Medicine Cardiovascular Disease
DX: I48.0 Paroxysmal atrial fibrillation (principal); I50.31 Acute diastolic (congestive) heart failure; I25.10 Atherosclerotic heart disease of native coronary artery without angina pectoris; I65.23 Occlusion and stenosis of bilateral carotid arteries
CPT/HCPCS: 78452; 93017

== ENCOUNTER → 2017-04-06 | Outpatient (CLI) | payer MEDICARE, MEDICAID ==
[~2017-04-06] MED LIST changes: -CATHETER FLUSH 10 ML SYR IV PRN; -REGADENOSON 0.4 MG/5 ML SYR (LEXISCAN) IV ONE
--- NOTE | 2017-04-07 20:15 | Diagnostic Imaging Report ---
Bilateral screening mammogram 2D views with tomosynthesis The current study was also evaluated with a Computer Aided Detection (CAD) system. INDICATION: Screening. No current complaints stated on the questionnaire. COMPARISON: 02/25/2015. FINDINGS: The breasts are composed of scattered fibroglandular densities. Scattered benign-appearing calcifications are seen. Allowing for technique and positional differences, no suspicious change is seen. IMPRESSION: No significant change. ACR BI-RADS Category 2: Benign findings. Result letter will be mailed to the patient. Note: At least 10% of breast cancer is not imaged by mammography. Dictated on workstation # [id number]
== END ==
LOC: RAD 14:25
PROVIDERS: ATTEND Family Medicine
DX: Z12.31 Encounter for screening mammogram for malignant neoplasm of breast (principal)
CPT/HCPCS: 77067

== ENCOUNTER → 2018-04-19 | Outpatient (CLI) | payer MEDICARE, MEDICAID ==
[~2018-04-19] MED LIST changes: +ACHD5005 PO; -HYDR-3812 PO; -METO-272 PO; -METO-274 PO; +METO-370 PO; +METO-395 PO; +NAPR-1070 PO; -NAPR550T PO
--- NOTE | 2018-04-19 18:57 | Diagnostic Imaging Report ---
INDICATION: Routine screening. COMPARISON: Comparison is made with prior mammograms from 04/06/2017 and 02/25/2015. TECHNIQUE: 2D and 3D bilateral screening mammography was performed with computer-aided detection (CAD) system. FINDINGS: Scattered fibroglandular densities are identified bilaterally. Scattered benign-appearing calcifications are identified bilaterally. No dominant mass or malignant appearing microcalcifications are seen. The axillae are unremarkable. IMPRESSION: No mammographic features suspicious for malignancy are identified. ACR BI-RADS Category 2: Benign findings. Result letter will be mailed to the patient. Note: At least 10% of breast cancer is not imaged by mammography. Dictated by: Dictated on workstation # [id number]
== END ==
LOC: RAD 13:23
PROVIDERS: ATTEND Family Medicine
DX: Z12.31 Encounter for screening mammogram for malignant neoplasm of breast (principal)
CPT/HCPCS: 77067

== ENCOUNTER → 2019-04-22 | Outpatient (CLI) | payer MEDICARE, MEDICAID ==
--- NOTE | 2019-04-23 13:43 | Diagnostic Imaging Report ---
INDICATION: Routine screening. COMPARISON: 04/19/2018 and 04/06/2017. TECHNIQUE: 2D and 3D bilateral screening mammography was performed with CAD. FINDINGS: Scattered fibroglandular densities are identified bilaterally. Benign-appearing calcifications in both breasts are again noted. No dominant mass or malignant appearing microcalcifications are seen. The axillae are unremarkable. IMPRESSION: No mammographic features suspicious for malignancy are identified. ACR BI-RADS Category 2: Benign findings. Result letter will be mailed to the patient. Note: At least 10% of breast cancer is not imaged by mammography. Dictated by: Dictated on workstation # [id number]
== END ==
LOC: RAD 13:56
PROVIDERS: ATTEND Family Medicine
DX: Z12.31 Encounter for screening mammogram for malignant neoplasm of breast (principal)
CPT/HCPCS: 77067

== ENCOUNTER 2020-11-12 10:05 | Emergency (ER) | payer MEDICARE, MEDICAID ==
[~2020-11-12] VITALS: Ht 162 cm; Wt 83.0 kg
[~2020-11-12 10:05] MED LIST changes: -DIAZ5TAB3; -LISI-556 PO; +LISI-729 PO; -METO-370 PO; -METO-395 PO; +METO50TA7 PO; +MTP100TCR PO
[2020-11-12 10:25] LABS: BASOPHILS # (AUTO) 0.1 10^3/uL (0.0-0.1); BASOPHILS % (AUTO) 1 % (0-10); EOSINOPHILS # (AUTO) 0.1 10^3/uL (0.0-0.3); EOSINOPHILS % (AUTO) 1 % (0-10); HEMATOCRIT 50 % (35-52); HEMOGLOBIN 15.8 g/dL (11.5-16.0); LYMPHOCYTES # (AUTO) 2.5 10^3/uL (1.0-4.0); LYMPHOCYTES % (AUTO) 26 % (12-44); MEAN CORPUSCULAR HEMOGLOBIN 29 pg (25-34); MEAN CORPUSCULAR HGB CONC 32 g/dL (32-36); MEAN CORPUSCULAR VOLUME 92 fL (80-99); MEAN PLATELET VOLUME 10.2 fL (9.0-12.2); MONOCYTES # (AUTO) 0.7 10^3/uL (0.0-1.0); MONOCYTES % (AUTO) 7 % (0-12); NEUTROPHILS # (AUTO) 6.2 10^3/uL (1.8-7.8); NEUTROPHILS % (AUTO) 65 % (42-75); PLATELET COUNT 325 10^3/uL (130-400); WHITE BLOOD COUNT 9.7 10^3/uL (4.3-11.0)
[2020-11-12] MEDS ORDERED: ASPIRIN 81 MG CHEW (CHILDREN'S ASA) PO ONE (10:30)
[2020-11-12 10:33] LABS: ALBUMIN 4.2 GM/DL (3.2-4.5); INR 1.3 (0.8-1.4); PROTHROMBIN TIME PATIENT 16.4 SEC (12.2-14.7)
[2020-11-12 10:34] LABS: CHLORIDE 107 MMOL/L (98-107); POTASSIUM 4.7 MMOL/L (3.6-5.0); SODIUM 143 MMOL/L (135-145)
[2020-11-12 10:35] LABS: CALCIUM 9.9 MG/DL (8.5-10.1)
[2020-11-12 10:36] LABS: GLUCOSE 112 MG/DL (70-105); TOTAL PROTEIN 7.8 GM/DL (6.4-8.2)
[2020-11-12 10:37] LABS: CARBON DIOXIDE 22 MMOL/L (21-32)
[2020-11-12 10:38] LABS: BILIRUBIN,TOTAL 0.5 MG/DL (0.1-1.0)
[2020-11-12 10:39] LABS: ALKALINE PHOSPHATASE 76 U/L (40-136)
[2020-11-12 10:40] LABS: CREATININE SERUM 0.87 MG/DL (0.60-1.30); GFR ESTIMATED > 60
[2020-11-12 10:41] LABS: ABG BASE EXCESS -1.3 MMOL/L (-2.5-2.5); ABG OXYGEN SATURATION 97 % (94-100); ABG PCO2 34 MMHG (35-45); ABG PH 7.44 (7.37-7.43); ABG PO2 80 MMHG (79-93); ABG TCO2 23.5 MMOL/L (21.0-31.0)
[2020-11-12 10:41] LABS: BUN/CREATININE RATIO 23
[2020-11-12 10:42] LABS: ALLENS TEST YES-POS; INSPIRED O2 2 L; PATIENT TEMP 36.5; VENTILATOR NO
[2020-11-12 10:42] LABS: ALANINE AMINOTRANSFERASE 20 U/L (0-55)
[2020-11-12 10:43] LABS: LIPASE 42 U/L (8-78)
--- NOTE | 2020-11-12 10:49 | ED Chest Pain ---
General Stated Complaint: SOB,AFIB Source: patient Exam Limitations: no limitations History of Present Illness Date Seen by Provider: November 12, 2020 Time Seen by Provider: 10:05 Initial Comments Patient to ER by private conveyance with chief complaint that she spoke to Dr. Aquino because she was having shortness of breath and some fleeting intermittent chest pain starting since she woke up around 6:00 this morning. He asked her to come to the ER to be evaluated. She is known to Dr. Blair and has a history of heart failure as well as coronary artery disease with a stent in early . She has paroxysmal atrial fibrillation. She is on Eliquis. She is not having a cough fever chills. Her pain left before she arrived in the ER. She is not having any acid reflux indigestion nausea sweats or chills. She took a dose of Lasix and it did not help. She took some of her breathing treatments for her COPD and it did not help. She quit smoking many years ago. She takes medicines for hypertension and hyperlipidemia but says her labs have always been good. Allergies and Home Medications Allergies Coded Allergies: morphine (Verified Allergy, Unknown, 08/05/08) Home Medications Albuterol/Ipratropium 4 Gm Aero, 1 PUFF INH TID PRN for SHORTNESS OF BREATH, (Reported) Apixaban 5 Mg Tablet, 5 MG PO BID Prescribed by: TORSTEN AQUINO on 07/07/16804 Atorvastatin Calcium 40 Mg Tablet, 40 MG PO HS, (Reported) Cyclobenzaprine HCl 10 Mg Tablet, 10 MG PO TID Prescribed by: MARCOS CAVAZOS on 07/07/16818 Diazepam 5 Mg Tablet, 2.5 MG PO HS, (Reported) TAKES 1/2 (5MG) TABLET Diltiazem HCl 180 Mg Cap.er.24h, 180 MG PO DAILY Prescribed by: MARCOS CAVAZOS on 07/07/16818 Furosemide 40 Mg Tablet, 1 MG PO DAILY Prescribed by: TORSTEN AQUINO on 07/07/16 08 Garlic 1 Each Capsule, 1 CAP PO DAILY, (Reported) Lisinopril 5 Mg Tablet, 5 MG PO DAILY Prescribed by: ARVIN BAEZ on 07/07/16 1131 Metoprolol Succinate 50 Mg Tab.er.24h, 50 MG PO DAILY, (Reported) Nitroglycerin 0.4 Mg Subl, 0.4 MG SL UD PRN for CHEST PAIN, (Reported) [place]-3S/Dha/Epa/Fish Oil 1 Each Capsule, 1,200 MG PO BID, (Reported) Vitamin E Mixed 400 Unit Tablet, 400 UNIT PO DAILY, (Reported) Patient Home Medication List Home Medication List Reviewed: Yes Review of Systems Review of Systems Constitutional: No chills, No diaphoresis EENTM: No Blurred Vision, No Double Vision Respiratory: Denies Cough, Denies Shortness of Air Cardiovascular: Denies Chest Pain, Denies Lightheadedness Gastrointestinal: Denies Constipated, Denies Diarrhea Genitourinary: Burning; Denies Discharge Musculoskeletal: No back pain, No joint pain All Other Systems Reviewed Negative Unless Noted: Yes Past Ifshwmz-Aortwf-Prkgoj Hx Patient Social History Alcohol Use: Denies Use Smoking Status: Former Smoker Former Smoker, Quit: Apr 28, 2005 Recent Hopitalizations: Yes Immunizations Up To Date Date of Pneumonia Vaccine: Mar 19, 2015 Date of Influenza Vaccine: Mar 03, 2016 Past Medical History Adenoidectomy, Appendectomy, Coronary Stent, Eye Surgery, Gallbladder, Hysterectomy, Tonsillectomy Pneumonia, COPD Coronary Artery Disease, High Cholesterol, Hypertension Reproductive Disorders: No Colitis, Diverticulosis Arthritis Anxiety, Depression Family Medical History Cardiovascular disease 19 FATHER G8 BROTHER Diabetes mellitus G8 SISTER G8 SISTER Hypercholesterolemia 19 FATHER 19 MOTHER G8 BROTHER G8 SISTER G8 SISTER Hypertension 19 FATHER 19 MOTHER G8 BROTHER G8 SISTER G8 SISTER Myocardial infarction 19 FATHER G8 BROTHER Neoplasm G8 SISTER (SPINAL CANCER ) No Pertinent Family Hx Physical Exam Vital Signs Vital Signs - First Documented 11/12/20 10:08 Temp 36.5 Pulse 92 Resp 28 B/P (MAP) 165/105 (125) Pulse Ox 93 O2 Delivery Room Air Capillary Refill : Height, Weight, BMI Height: 5'4.00" Weight: 203lbs. 1.0oz. 92.435349vh; 34.7 BMI Method:Stated General Appearance: No Apparent Distress, Obese HEENT: PERRL/EOMI, Pharynx Normal, Moist Mucous Membranes Neck: Full Range of Motion, Normal Inspection Respiratory: Lungs Clear, Normal Breath Sounds, No Accessory Muscle Use, No Respiratory Distress Cardiovascular: Regular Rate, Rhythm, No Edema, Normal Peripheral Pulses Gastrointestinal: Normal Bowel Sounds, Non Tender, Soft Extremity: Normal Capillary Refill, Normal Inspection, No Pedal Edema Neurologic/Psychiatric: Alert, Oriented x3 Skin: Normal Color, Warm/Dry Progress/Results/Core Measures Results/Orders Lab Results Laboratory Tests Test 11/12/20 10:12 11/12/20 10:34 11/12/20 13:17 Range/Units White Blood Count 9.7 4.3-11.0 10^3/uL Red Blood Count 5.41 H 3.80-5.11 10^6/uL Hemoglobin 15.8 11.5-16.0 g/dL Hematocrit 50 35-52 % Mean Corpuscular Volume 92 80-99 fL Mean Corpuscular Hemoglobin 29 25-34 pg Mean Corpuscular Hemoglobin Concent 32 32-36 g/dL Red Cell Distribution Width 13.7 10.0-14.5 % Platelet Count 325 130-400 10^3/uL Mean Platelet Volume 10.2 9.0-12.2 fL Immature Granulocyte % (Auto) 0 % Neutrophils (%) (Auto) 65 42-75 % Lymphocytes (%) (Auto) 26 12-44 % Monocytes (%) (Auto) 7 0-12 % Eosinophils (%) (Auto) 1 0-10 % Basophils (%) (Auto) 1 0-10 % Neutrophils # (Auto) 6.2 1.8-7.8 10^3/uL Lymphocytes # (Auto) 2.5 1.0-4.0 10^3/uL Monocytes # (Auto) 0.7 0.0-1.0 10^3/uL Eosinophils # (Auto) 0.1 0.0-0.3 10^3/uL Basophils # (Auto) 0.1 0.0-0.1 10^3/uL Immature Granulocyte # (Auto) 0.0 0.0-0.1 10^3/uL Prothrombin Time 16.4 H 12.2-14.7 SEC INR Comment 1.3 0.8-1.4 Activated Partial Thromboplast Time 38 H 24-35 SEC D-Dimer 0.37 0.00-0.49 UG/ML Sodium Level 143 135-145 MMOL/L Potassium Level 4.7 3.6-5.0 MMOL/L Chloride Level 107 98-107 MMOL/L Carbon Dioxide Level 22 21-32 MMOL/L Anion Gap 14 5-14 MMOL/L Blood Urea Nitrogen 20 H 7-18 MG/DL Creatinine 0.87 0.60-1.30 MG/DL Estimat Glomerular Filtration Rate > 60 BUN/Creatinine Ratio 23 Glucose Level 112 H 70-105 MG/DL Calcium Level 9.9 8.5-10.1 MG/DL Corrected Calcium 9.7 8.5-10.1 MG/DL Magnesium Level 2.0 1.6-2.4 MG/DL Total Bilirubin 0.5 0.1-1.0 MG/DL Aspartate Amino Transf (AST/SGOT) 21 5-34 U/L Alanine Aminotransferase (ALT/SGPT) 20 0-55 U/L Alkaline Phosphatase 76 40-136 U/L Myoglobin 47.0 10.0-92.0 NG/ML Troponin I < 0.028 < 0.028 <0.028 NG/ML B-Type Natriuretic Peptide 105.2 H <100.0 PG/ML Total Protein 7.8 6.4-8.2 GM/DL Albumin 4.2 3.2-4.5 GM/DL Lipase 42 8-78 U/L Blood Gas Puncture Site RT RAD Blood Gas Patient Temperature 36.5 Arterial Blood pH 7.44 H 7.37-7.43 Arterial Blood Partial Pressure CO2 34 L 35-45 MMHG Arterial Blood Partial Pressure O2 80 79-93 MMHG Arterial Blood HCO3 23 23-27 MMOL/L Arterial Blood Total CO2 23.5 21.0-31.0 MMOL/L Arterial Blood Oxygen Saturation 97 94-100 % Arterial Blood Base Excess -1.3 -2.5-2.5 MMOL/L Med Test YES-POS Blood Gas Ventilator Setting NO Blood Gas Inspired Oxygen 2 L My Orders Orders - ALYSON FIELD Continuous Ekg Monitoring (11/12/20 10:09) Ekg Tracing (11/12/20 10:09) Cbc With Automated Diff (11/12/20 10:16) Magnesium (11/12/20 10:16) Chest 1 View, Ap/Pa Only (11/12/20 10:16) Comprehensive Metabolic Panel (11/12/20 10:16) Myoglobin Serum (11/12/20 10:16) Protime With Inr (11/12/20 10:16) Partial Thromboplastin Time (11/12/20 10:16) O2 (11/12/20 10:16) Ed Iv/Invasive Line Start (11/12/20 10:16) Lipase (11/12/20 10:16) BNP (11/12/20 10:16) Fibrin Degradation Products (11/12/20 10:16) Troponin I (11/12/20 10:16) Aspirin Chewable Tablet (Baby Aspirin Ch (11/12/20 10:30) Arterial Blood Draw (11/12/20 ) Arterial Blood Gas (11/12/20 10:34) Troponin I (11/12/20 13:26) Medications Given in ED Vital Signs/I&O 11/12/20 11/12/20 10:08 14:13 Temp 36.5 Pulse 92 68 Resp 28 22 B/P (MAP) 165/105 (125) 142/84 (125) Pulse Ox 93 93 O2 Delivery Room Air Room Air Progress Progress Note #1: Time: 13:17 Progress Note Patient's initial labs and troponin unremarkable. Tests were drawn 4 hours after the start of her symptoms she woke with around 6:00 in the morning. We will repeat a delta troponin 3 hours out, time now. The patient is adamant that she will not be staying in the hospital. She does not want to wait in the ER much longer. We have talked her into doing a delta troponin. We have explained to her that it does not completely rule out something could be happening however she states that she is okay that if it is her time and she is to she is at peace with that however she would prefer to be at home. She is not currently in any acute distress nor is she using supplemental oxygen nor she having increased work of breathing or chest pain. She is okay with a delta troponin. Heart score 5 points. Explained to her that if she left it would be not be our first plan however we would still attempt to support her as best we could. She says she will follow-up in the clinic with Dr. Blair. Progress Note #2: Time: 14:13 Progress Note Patient still asymptomatic at this time. She is adamant that she wants to leave. We did explain to her based on her previous heart cath where she had to have in-stent restenosis ballooned open again she could have similar problems. She says she is okay with this and willing to follow-up outpatient with her heart doctor. Coronary angiogram [address] Blair demonstrates severe in-stent restenosis of a previously stented right coronary artery status post balloon angioplasty. Reduce the stenosis to less than 30%. Left circumflex has a stent approximately 50% stenosis and the rest of the coronary vessels have relatively mild disease. EF of 70%. Initial ECG Impression Date: November 12, 2020 Initial ECG Impression Time: 10:08 Initial ECG Rate: 85 Initial ECG Rhythm: Normal Sinus Initial ECG Intervals: NM (228) Initial ECG Impression: Normal Comment First-degree AV block sinus rhythm without clinically relevant ST changes. Diagnostic Imaging Diagonstic Imaging: Xray Plain Films/CT/US/NM/MRI: chest Comments NAME: DC GUPTA REC#: [id number] PT STATUS: REG ER : 1945 PHYSICIAN: ALYSON FIELD MD ADMIT DATE: 11/12/20/ER Draft Date of Exam:11/12/20 CHEST 1 VIEW, AP/PA ONLY INDICATION: Tachycardia, chest pain. EXAMINATION: Frontal chest obtained at 10:26 a.m. and compared 07/07/2016. FINDINGS: There is cardiomegaly. There is mild central vascular prominence. There is no focal infiltrate or pneumothorax or pleural fluid. IMPRESSION: Cardiomegaly with no acute process in the chest. Dictated on workstation # [id number] Dict: 11/12/20 1053 Trans: 11/12/20 1058 [id number] Interpreted by: MAKENZIE RODRIGUES MD Electronically signed by: Reviewed: Reviewed by Me Consults : Consulting Physician: ROSAURA MERIDA MD Consults Notes Discussed the case and that the patient was adamant against staying. He says that is okay she does not need to be sent AGAINST MEDICAL ADVICE she can just follow-up if she is pain-free next week with Dr. Blair in the clinic. Departure Impression Primary Impression: Chest pain Qualified Codes: R07.9 - Chest pain, unspecified Additional Impressions: Shortness of breath Suspect angina Disposition: 01 HOME, SELF-CARE Condition: Stable Departure-Patient Inst. Decision time for Depature: 14:11 Referrals: TORSTEN AQUINO DO (PCP/Family) Primary Care Physician NEHEMIAH BLAIR MD FACP FACC CCDS Patient Instructions: Troponin Test Add. Discharge Instructions: Return to the ER promptly if you have more chest pain and shortness of air othe rwise plan to follow-up with Dr. Blair early next week. Call them today for an appointment. Copy Copies To 1: NEHEMIAH BLAIR MD [facility] CCDS ALYSON FIELD November 12, 2020 10:49
--- NOTE | 2020-11-12 10:59 | Diagnostic Imaging Report ---
INDICATION: Tachycardia, chest pain. EXAMINATION: Frontal chest obtained at 10:26 a.m. and compared 07/07/2016. FINDINGS: There is cardiomegaly. There is mild central vascular prominence. There is no focal infiltrate or pneumothorax or pleural fluid. IMPRESSION: Cardiomegaly with no acute process in the chest. Dictated by: Dictated on workstation # [id number]
[2020-11-12 14:13] VITALS: BP 142/84
== END 2020-11-12 14:26 | disposition home or self-care (01) ==
LOC: EDUNIT# 10:05 → ER 10:06
DX: R07.9 Chest pain, unspecified (principal); R06.02 Shortness of breath; I11.0 Hypertensive heart disease with heart failure; I50.9 Heart failure, unspecified; I48.0 Paroxysmal atrial fibrillation; E78.5 Hyperlipidemia, unspecified; I25.10 Atherosclerotic heart disease of native coronary artery without angina pectoris; E78.00 Pure hypercholesterolemia, unspecified; J44.9 Chronic obstructive pulmonary disease, unspecified; F41.9 Anxiety disorder, unspecified; F32.9 Major depressive disorder, single episode, unspecified; E66.9 Obesity, unspecified; Z68.34 Body mass index [BMI] 34.0-34.9, adult; Z87.891 Personal history of nicotine dependence; Z95.5 Presence of coronary angioplasty implant and graft; Z88.5 Allergy status to narcotic agent; Z79.01 Long term (current) use of anticoagulants; Z79.899 Other long term (current) drug therapy
CPT/HCPCS: 36415; 36600; 71045; 80053; 82805; 83690; 83735; 83874; 83880; 84484; 85025; 85379; 85610; 85730; 93005

== ENCOUNTER 2020-12-01 08:00 | Day surgery (SDC) | payer MEDICARE, MEDICAID ==
[2020-12-01] VITALS (10 sets, daily range): BP systolic 107–149; BP diastolic 50–84
[~2020-12-01] VITALS: Ht 162 cm; Wt 87.0 kg
[2020-12-01 07:24] LABS: HEMATOCRIT 51 % (35-52); HEMOGLOBIN 16.4 g/dL (11.5-16.0); MEAN CORPUSCULAR HEMOGLOBIN 29 pg (25-34); MEAN CORPUSCULAR HGB CONC 32 g/dL (32-36); MEAN CORPUSCULAR VOLUME 91 fL (80-99); MEAN PLATELET VOLUME 9.9 fL (9.0-12.2); PLATELET COUNT 316 10^3/uL (130-400); WHITE BLOOD COUNT 11.7 10^3/uL (4.3-11.0)
[2020-12-01 07:42] LABS: ALBUMIN 4.4 GM/DL (3.2-4.5)
[2020-12-01 07:43] LABS: CALCIUM 10.3 MG/DL (8.5-10.1)
[2020-12-01 07:44] LABS: TOTAL PROTEIN 7.6 GM/DL (6.4-8.2)
[2020-12-01 07:46] LABS: BILIRUBIN,TOTAL 0.5 MG/DL (0.1-1.0)
[2020-12-01 07:48] LABS: CREATININE SERUM 0.96 MG/DL (0.60-1.30)
[~2020-12-01 08:00] MED LIST changes: +ASPI-999 PO; +HEParin (CATH LAB) 2,000 ML IV ONE; +LIDOCAINE 1% INJ 20 ML 20 ML VIAL ONE; +METO100T6 PO; +MULT-81 PO; +NS IV 1000 ML 1,000 ML IV SCH; +NS IV 1000 ML 1,000 ML ONE; +ROSU10TA28 PO
[2020-12-01] MEDS ORDERED: MIDAZOLAM 5 MG/5 ML (VERSED) VIAL ONE (08:16)
[2020-12-01] MEDS ORDERED: fentaNYL INJ 100 MCG/2 ML AMP ONE (08:16)
[2020-12-01] MEDS ORDERED: LIDOCAINE 1% INJ 20 ML 20 ML VIAL ONE (08:59)
--- NOTE | 2020-12-01 09:33 | Cardiac Procedure Note-CS/ASA ---
Pre-Procedure Note Pre-Op Procedure Note H&P Reviewed The H&P was reviewed, patient examined and no changes noted. Date H&P Reviewed: Dec 01, 2020 Time H&P Reviewed: 08:40 Conscious Sedation Pre-Proced Time 08:40 ASA Score 3 For ASA 3 and 4: Consider anesthesia and medical clearance. Also, for patients with a history of failed moderate sedation consider anesthesia. Airway Lungs Heart ASA score ASA 1: a normal healthy patient ASA 2: a patient with a mild systemic disease (mid diabetes, controlled hypertension, obesity ASA 3: a patient with a severe systemic disease that limits activity (angina, COPD, prior Myocardial infarction) ASA 4: a patient with an incapacitating disease that is a constant threat to life (CHF, renal failure) ASA 5: a moribund patient not expected to survive 24 hrs. (ruptured aneurysm) ASA 6: a declared brain- patient whose organs are being harvested. For emergent operations, add the letter E after the classification Mallampati Classification Grade 2 Sedation Plan Analgesia, Amnesia, Plan communicated to team members, Discussed options with patient/fam, Discussed risks with patient/fam The patient is an appropriate candidate to undergo the planned procedure, sedation, and anesthesia. The patient immediately re-assessed prior to indication. NEHEMIAH BLAIR MD FACP FAC CCDS Dec 01, 2020 09:33
[2020-12-01] MEDS ORDERED: PATIENT MAY USE OWN MEDS, ALL PO SCH (09:45)
[2020-12-01] MEDS ORDERED: NS IV 1000 ML 1,000 ML IV SCH (09:45)
--- NOTE | 2020-12-01 09:48 | Discharge Inst-Post CATH ---
Discharge Inst-CATH/EP Post Cardiac Cath/EP D/C Inst Follow Up/Plan G/u with Dr Watts in 1-2 weeks ACTIVITY * Go Home directly and rest. * Limit activity of the leg (or wrist if it was used) for 7 days including aerobics, swimming, jogging, bicycling, etc. * Restrict stair-climbing for 7 days if possible, if not, climb up with your non-cath leg, then bring together on the same step. * Avoid lifting, pushing, pulling or excessive movement of the affected extremity for 7 days. * Customary sexual activity may be resumed after 2 days-use caution not to use a position that strains or causes pain to the affected extremity. * No driving for 24 hours. * NO SMOKING. * Avoid straining for bowel movements for 7 days. * Gentle walking on level ground is allowed. * Returning to work will depend on the type of procedure and the results. Your doctor will discuss this with you. CALL YOUR DOCTOR FOR ANY OF THE FOLLOWING: *If bleeding from the puncture site occurs- Apply gentle pressure to site with clean cloth and call your doctor or EMS. * If a knot or lump forms under the skin, increases in size, or causes pain. * If bruising appears to be worsening or moving further down your leg instead of disappearing. * Temperature above 101 F. CARE OF YOUR GROIN INCISION; * Bruising or purple discoloration of the skin near the puncture site is common. * You may shower only, no bathtub bathing for 5 days. Be careful to avoid slipping as your leg may feel stiff. * If a closure device was used on your femoral artery, please see the attached guide regarding care of the device and your leg. * Leave dressing on FOR 24 hours. CARE OF YOUR WRIST INCISION; * Bruising or purple discoloration of the skin near the puncture site is common. * You may shower. * DO NOT submerge wrist. * Leave dressing on FOR 24 hours. NEHEMIAH WATTS MD [facility] CCDS Dec 01, 2020 09:48
--- NOTE | 2020-12-01 09:49 | Discharge Inst-Cardiology ---
Discharge Inst-Cardiac Discharge Medications Continued Medications: Albuterol/Ipratropium (Combivent Respimat Inhal [place]) 4 Gm Aero 1 PUFF INH TID PRN for SHORTNESS OF BREATH, INHALER Apixaban (Eliquis) 5 Mg Tablet 5 MG PO BID, #60 TAB Aspirin (Aspirin) 81 Mg Tab.chew 81 MG PO DAILY, TAB Diazepam (Diazepam 5 Mg) 5 Mg Tablet 2.5 MG PO HS, TAB TAKES 1/2 (5MG) TABLET Diltiazem HCl (Diltiazem 24Hr Cd) 180 Mg Cap.er.24h 180 MG PO DAILY for 30 Days, CAP 1 Refill Furosemide (Lasix) 40 Mg Tablet 1 MG PO DAILY, #30 TAB Garlic (Garlic) 1 Each Capsule 1 CAP PO DAILY, CAP Metoprolol Succinate (Toprol Xl) 100 Mg Tab.er.24h 100 MG PO DAILY, TAB Multivit with Calcium,Iron,Min (Multiple Vitamins For Women) 1 Each Tablet 1 EACH PO DAILY, TAB Nitroglycerin (Nitrostat) 0.4 Mg Subl 0.4 MG SL UD PRN for CHEST PAIN, TAB [place]-3S/Dha/Epa/Fish Oil (Fish Oil 1,200 Mg Softgel) 1 Each Capsule 1200 MG PO BID, CAP Rosuvastatin Calcium (Rosuvastatin Calcium) 10 Mg Tablet 10 MG PO HS, TAB NEHEMIAH BLAIR MD FACP FAC CCDS Dec 01, 2020 09:49
--- NOTE | 2020-12-01 12:43 | CARDIAC CATHETERIZATION ---
DATE OF SERVICE: 12/01/2020 CARDIAC CATHETERIZATION REPORT The patient is a 75-year-old lady who is known to have coronary artery disease and who has been experiencing symptoms consistent with an angina equivalent. Symptoms have been progressive. Cardiac catheterization was carried out after having obtained an informed consent. DESCRIPTION OF PROCEDURE: She was brought to the cardiac catheterization laboratory in a fasting state. Right groin was prepared and draped in the usual sterile fashion. Lidocaine 1% was used for local anesthesia. Modified Seldinger technique was used to advance a 5-Bahamian sheath in the right femoral artery, 5-Bahamian JL4 catheter was used for left coronary angiography, 5-Bahamian JR4 catheter for right coronary angiography, 5-Bahamian pigtail catheter was used for left heart catheterization and left ventricular angiography. At the end of the procedure, angiography of the right femoral artery was carried out through the sheath and Mynx was used to achieve hemostasis. She tolerated the procedure well. HEMODYNAMICS: Left ventricular end-diastolic pressure following left ventricular angiography was 20 mmHg. There was no significant pressure gradient on pullback across the aortic valve. There is no significant pressure gradient on pullback across the aortic valve. CORONARY ANGIOGRAPHY: Coronary calcification is seen. Left main coronary artery does not exhibit significant disease. Left anterior descending artery has diffuse mild plaque. Left circumflex artery has a patent stent in the proximal portion of its main obtuse marginal branch. There is also another patent stent in the distal portion of this vessel. The mid portion of the vessel has approximately 60% stenosis. The right coronary artery is dominant. It is extensively stented in its proximal, mid and distal portions. The stents are patent. There is no more than 50% in-stent restenosis. LEFT VENTRICULAR ANGIOGRAPHY: Left ventricular angiography was carried out in the right anterior oblique projection. Global left ventricular systolic function is normal to hyperdynamic. Left ventricular ejection fraction is estimated to be 65 to 70%. CONCLUSIONS: 1. Coronary artery disease, moderate. There are patent stents in the proximal and distal portions of the left circumflex (proximally Taxus Atom 2.25 x 8 mm and distally Multi-Link 2.5 x 8 mm). The right coronary artery is extensively stented and there is no more than 50% in-stent restenosis. The stents are known to be, from proximal to distal, Multi-Link 2.75 x 18, 2.5 x 23, 2.5 x 28, overlapping stents). 2. Normal global left ventricular systolic function with ejection fraction of 65 to 70%. 3. Elevated left ventricular end-diastolic pressure. DISCUSSION AND RECOMMENDATIONS: Based on the results of the study, the coronary status appears stable and continuing risk factor modification and conservative medical management is recommended. Outpatient followup is advised. Job ID: [id number] DocumentID: [id number] Dictated Date: 12/01/2020 09:40:47 Ui Developer Date: 12/01/2020 12:42:33 Dictated By: NEHEMIAH BLAIR MD, MA, FACP, FACC, MTDD
== END 2020-12-01 13:07 | disposition home or self-care (01) ==
LOC: CATH 08:00 → SDC 09:49 → CATH 13:07
PROVIDERS: ATTEND Internal Medicine Cardiovascular Disease
DX: I25.10 Atherosclerotic heart disease of native coronary artery without angina pectoris (principal); I48.0 Paroxysmal atrial fibrillation; I08.1 Rheumatic disorders of both mitral and tricuspid valves; I10 Essential (primary) hypertension; E78.5 Hyperlipidemia, unspecified; J44.9 Chronic obstructive pulmonary disease, unspecified; R73.01 Impaired fasting glucose; F41.9 Anxiety disorder, unspecified; Z79.82 Long term (current) use of aspirin; Z79.899 Other long term (current) drug therapy; Z87.891 Personal history of nicotine dependence; Z79.01 Long term (current) use of anticoagulants; Z82.49 Family history of ischemic heart disease and other diseases of the circulatory system; Z83.3 Family history of diabetes mellitus
CPT/HCPCS: 80053; 80061; 85027; 85610; 85730; 87081; 93458; C1760; C1894; 36415

== ENCOUNTER → 2022-02-21 | Outpatient (CLI) | payer MEDICARE, MEDICAID ==
[~2022-02-21] MED LIST changes: +CYCL10TA25 PO; -CYCL10TA9 PO; -HEParin (CATH LAB) 2,000 ML IV ONE; -LIDOCAINE 1% INJ 20 ML 20 ML VIAL ONE; -LISI-729 PO; +LISI5TAB20 PO; -NS IV 1000 ML 1,000 ML IV SCH; -NS IV 1000 ML 1,000 ML ONE
== END ==
LOC: CARD 10:32
PROVIDERS: ATTEND Nurse Practitioner Family
DX: I08.3 Combined rheumatic disorders of mitral, aortic and tricuspid valves (principal)
CPT/HCPCS: 93306

== ENCOUNTER 2022-11-04 17:12 | Observation (INO) | payer MEDICARE, MEDICAID ==
[~2022-11-04] VITALS: Ht 162 cm; Wt 82.5 kg
[2022-11-04 17:30] LABS: BASOPHILS # (AUTO) 0.1 10^3/uL (0.0-0.1); BASOPHILS % (AUTO) 0 % (0-10); EOSINOPHILS # (AUTO) 0.1 10^3/uL (0.0-0.3); EOSINOPHILS % (AUTO) 1 % (0-10); HEMATOCRIT 44 % (35-52); HEMOGLOBIN 14.9 g/dL (11.5-16.0); LYMPHOCYTES # (AUTO) 2.7 10^3/uL (1.0-4.0); LYMPHOCYTES % (AUTO) 20 % (12-44); MEAN CORPUSCULAR HEMOGLOBIN 30 pg (25-34); MEAN CORPUSCULAR HGB CONC 34 g/dL (32-36); MEAN CORPUSCULAR VOLUME 90 fL (80-99); MEAN PLATELET VOLUME 10.9 fL (9.0-12.2); MONOCYTES # (AUTO) 0.9 10^3/uL (0.0-1.0); MONOCYTES % (AUTO) 7 % (0-12); NEUTROPHILS # (AUTO) 9.6 10^3/uL (1.8-7.8); NEUTROPHILS % (AUTO) 72 % (42-75); PLATELET COUNT 281 10^3/uL (130-400); WHITE BLOOD COUNT 13.4 10^3/uL (4.3-11.0)
[2022-11-04] MEDS ORDERED: LORazepam INJ 2 MG/ML (ATIVAN) VIAL IVP ONE (17:30)
[2022-11-04] MEDS ORDERED: fentaNYL INJ 100 MCG/2 ML AMP IVP ONE (17:30)
[2022-11-04 17:36] LABS: CALCIUM 9.6 MG/DL (8.5-10.1); INR 1.2 (0.8-1.4); PROTHROMBIN TIME PATIENT 15.7 SEC (12.2-14.7)
[2022-11-04 17:37] LABS: TOTAL PROTEIN 7.1 GM/DL (6.4-8.2)
[2022-11-04 17:39] LABS: BILIRUBIN,TOTAL 0.4 MG/DL (0.1-1.0)
[2022-11-04 17:41] LABS: CREATININE SERUM 0.8 MG/DL (0.60-1.30)
[2022-11-04 17:44] LABS: MAGNESIUM 1.7 MG/DL (1.6-2.4)
--- NOTE | 2022-11-04 17:52 | ED Chest Pain ---
General Chief Complaint: Chest Pain Stated Complaint: CHEST PAIN Nursing Triage Note: PT IS BROUGHT VIA EMS [facility] FOR A HEADACHE AND CP THAT STARTED AROUND 1500. PT REPORTS CP IS 1/10 NOW BUT HER HEAD REALLY HURTS. PT IS NOTIFIYING STAFF SHE IS DNR AND SHE JUST NEEDS TO GO HOME. PT IS ALERT AND ORIENTED X'S 4. PT IS ON 6L, TYPICALLY ONLY 3L AT HOME. PT IS IN ROOM 07. Source: patient, EMS, old records Exam Limitations: no limitations (RODRIGUEZ AVILA MD) History of Present Illness Date Seen by Provider: November 04, 2022 Time Seen by Provider: 17:15 Initial Comments This 77-year-old woman presents to the emergency room via [facility] with complaints of atrial fibrillation with RVR, chest pain, and headache. EMS reports that they initially noted a blood pressure of 192/83 and variable tachycardia suggestive of A-fib with RVR. Patient has a history of A-fib with RVR. Her oxygen saturation for EMS was 86% on her usual nasal cannula. She was short of breath and a DuoNeb treatment was initiated by EMS. She completed that the DuoNeb treatment was causing chest pain radiating into her jaw, so they discontinued the DuoNeb treatment. Blood sugar was 119. After starting the DuoNeb treatment, her oxygen saturation resuscitated to 93%. Blood pressure improved to 108/72 with a heart rate of 120 on EMSs last measurement. Patient promptly informs me of her DNR status with emphasis when I walk in the room. She is quite anxious and complains of headache. Dr. Aquino is her primary care provider Dr. Watts is her event coordinator. She is on apixaban for stroke prophylaxis. (RODRIGUEZ AVILA MD) Allergies and Home Medications Allergies Coded Allergies: morphine (Verified Allergy, Unknown, 08/05/08) Patient Home Medication List Home Medication List Reviewed: Yes (RODRIGUEZ AVILA MD) Albuterol/Ipratropium (Combivent Respimat Inhal [place]) 4 Gm Aero, 1 PUFF INH TID PRN for SHORTNESS OF BREATH, (Reported) Entered as Reported by: BRIAN VELOZ on 07/05/16 0768 Apixaban (Eliquis) 5 Mg Tablet, 5 MG PO BID Prescribed by: TORSTEN AQUINO on 07/07/16 0805 Aspirin (Aspirin) 81 Mg Tab.chew, 81 MG PO DAILY, (Reported) Entered as Reported by: SUDHEER AGUAYO on 12/01/20 07 Diazepam (Diazepam 5 Mg) 5 Mg Tablet, 2.5 MG PO HS, (Reported) Entered as Reported by: FLORIAN GREWAL on 01/13/12 1717 Diltiazem HCl (Diltiazem 24Hr Cd) 180 Mg Cap.er.24h, 180 MG PO DAILY Prescribed by: MARCOS CAVAZOS on 07/07/16 0819 Furosemide (Lasix) 40 Mg Tablet, 1 MG PO DAILY Prescribed by: TORSTEN AQUINO on 07/07/16 0805 Garlic (Garlic) 1 Each Capsule, 1 CAP PO DAILY, (Reported) Entered as Reported by: BRIAN VELOZ on 03/24/15 1400 Metoprolol Succinate (Toprol Xl) 100 Mg Tab.er.24h, 100 MG PO DAILY, (Reported) Entered as Reported by: SUDHEER AGUAYO on 12/01/20 07 Multivit with Calcium,Iron,Min (Multiple Vitamins For Women) 1 Each Tablet, 1 EACH PO DAILY, (Reported) Entered as Reported by: SUHDEER AGUAYO on 12/01/20 07 Nitroglycerin (Nitrostat) 0.4 Mg Subl, 0.4 MG SL UD PRN for CHEST PAIN, (Reported) Entered as Reported by: CHAITANYA DUMONT on 08/05/08 1509 [place]-3S/Dha/Epa/Fish Oil (Fish Oil 1,200 Mg Softgel) 1 Each Capsule, 1,200 MG PO BID, (Reported) Entered as Reported by: JAY SIMMONS on 10/27/14 1043 Rosuvastatin Calcium (Rosuvastatin Calcium) 10 Mg Tablet, 10 MG PO HS, (Reported) Entered as Reported by: SUDHEER AGUAYO on 12/01/20 07 Review of Systems Review of Systems Constitutional: no symptoms reported EENTM: No Symptoms Reported Respiratory: See HPI Cardiovascular: See HPI Gastrointestinal: No Symptoms Reported Genitourinary: No Symptoms Reported Musculoskeletal: no symptoms reported Skin: no symptoms reported Psychiatric/Neurological: See HPI Endocrine: No Symptoms Reported Hematologic/Lymphatic: No Symptoms Reported (RODRIGUEZ AVILA MD) Past Juaahxl-Ugkbgk-Drdrgl Hx Patient Social History Tobacco Use?: No Substance use?: No Alcohol Use?: No Pt feels they are or have been: No (RODRIGUEZ AVILA MD) Immunizations Up To Date Tetanus Booster (TDap): Unknown First/Initial COVID19 Vaccinat: [place]OTH [place]ACC[place] FOR COVID Second COVID19 Vaccination Anup: [place] BOTH [place] FOR [place] Third COVID19 Vaccination Date: [facility] HAS BOTH VACCINES FOR COVID (RODRIGUEZ AVILA MD) Past Medical History Surgery/Hospitalization HX: med. hx-a-fib and COPD med. surg.-5 stents, hyst., T&A Surgeries: Yes (CATARACTS) Adenoidectomy, Appendectomy, Coronary Stent, Eye Surgery, Gallbladder, Hysterectomy, Tonsillectomy Respiratory: Yes Pneumonia, COPD Cardiac: Yes (stents x5, ) Atrial Fibrillation, Coronary Artery Disease, High Cholesterol, Hypertension Neurological: No Reproductive Disorders: No Genitourinary: No Gastrointestinal: Yes Colitis, Diverticulosis Musculoskeletal: Yes Arthritis Endocrine: No Cancer: No Psychosocial: Yes Anxiety, Depression Integumentary: No Blood Disorders: No (RODRIGUEZ AVILA MD) Family Medical History Cardiovascular disease 19 FATHER G8 BROTHER Diabetes mellitus G8 SISTER G8 SISTER Hypercholesterolemia 19 FATHER 19 MOTHER G8 BROTHER G8 SISTER G8 SISTER Hypertension 19 FATHER 19 MOTHER G8 BROTHER G8 SISTER G8 SISTER Myocardial infarction 19 FATHER G8 BROTHER Neoplasm G8 SISTER (SPINAL CANCER ) No Pertinent Family Hx (RODRIGUEZ AVILA MD) Physical Exam Vital Signs Vital Signs - First Documented 11/04/22 11/04/22 17:12 17:38 Pulse 97 B/P (MAP) 181/95 Pulse Ox 93 O2 Delivery Nasal Cannula O2 Flow Rate 6.00 (DERRICK MAHONEY MD) Vital Signs Capillary Refill : (RODRIGUEZ AVILA MD) Height, Weight, BMI Height: 5'4.00" Weight: 203lbs. 1.0oz. 92.950475ay; 29.00 BMI Method:Stated General Appearance: WD/WN, Moderate Distress HEENT: Normal ENT Inspection Neck: Normal Inspection Respiratory: Lungs Clear, No Accessory Muscle Use, No Respiratory Distress; No Crackles, No Wheezing; Other (Tachypnea) Cardiovascular: No Edema, No Murmur, Irregularly Irregular, Tachycardia Gastrointestinal: Normal Bowel Sounds, Non Tender, Soft Extremity: Normal Inspection, No Pedal Edema Neurologic/Psychiatric: Alert, Oriented x3, No Motor/Sensory Deficits, Other (Anxious) Skin: Normal Color, Warm/Dry (RODRIGUEZ AVILA MD) Progress/Results/Core Measures Results/Orders Lab Results Laboratory Tests Test 11/04/22 17:15 Range/Units White Blood Count 13.4 H 4.3-11.0 10^3/uL Red Blood Count 4.92 3.80-5.11 10^6/uL Hemoglobin 14.9 11.5-16.0 g/dL Hematocrit 44 35-52 % Mean Corpuscular Volume 90 80-99 fL Mean Corpuscular Hemoglobin 30 25-34 pg Mean Corpuscular Hemoglobin Concent 34 32-36 g/dL Red Cell Distribution Width 13.0 10.0-14.5 % Platelet Count 281 130-400 10^3/uL Mean Platelet Volume 10.9 9.0-12.2 fL Immature Granulocyte % (Auto) 0 % Neutrophils (%) (Auto) 72 42-75 % Lymphocytes (%) (Auto) 20 12-44 % Monocytes (%) (Auto) 7 0-12 % Eosinophils (%) (Auto) 1 0-10 % Basophils (%) (Auto) 0 0-10 % Neutrophils # (Auto) 9.6 H 1.8-7.8 10^3/uL Lymphocytes # (Auto) 2.7 1.0-4.0 10^3/uL Monocytes # (Auto) 0.9 0.0-1.0 10^3/uL Eosinophils # (Auto) 0.1 0.0-0.3 10^3/uL Basophils # (Auto) 0.1 0.0-0.1 10^3/uL Immature Granulocyte # (Auto) 0.1 0.0-0.1 10^3/uL Prothrombin Time 15.7 H 12.2-14.7 SEC INR Comment 1.2 0.8-1.4 Activated Partial Thromboplast Time 41 H 24-35 SEC Sodium Level 140 135-145 MMOL/L Potassium Level 4.0 3.6-5.0 MMOL/L Chloride Level 108 H 98-107 MMOL/L Carbon Dioxide Level 17 L 21-32 MMOL/L Anion Gap 15 H 5-14 MMOL/L Blood Urea Nitrogen 16 7-18 MG/DL Creatinine 0.80 0.60-1.30 MG/DL Estimat Glomerular Filtration Rate 75 BUN/Creatinine Ratio 20 Glucose Level 112 H 70-105 MG/DL Calcium Level 9.6 8.5-10.1 MG/DL Corrected Calcium 9.6 8.5-10.1 MG/DL Magnesium Level 1.7 1.6-2.4 MG/DL Total Bilirubin 0.4 0.1-1.0 MG/DL Aspartate Amino Transf (AST/SGOT) 19 5-34 U/L Alanine Aminotransferase (ALT/SGPT) 13 0-55 U/L Alkaline Phosphatase 74 40-136 U/L Myoglobin 40.9 10.0-92.0 NG/ML Troponin I < 0.028 <0.028 NG/ML B-Type Natriuretic Peptide 321.7 H <100.0 PG/ML Total Protein 7.1 6.4-8.2 GM/DL Albumin 4.0 3.2-4.5 GM/DL (DERRICK MAHONEY MD) My Orders Orders - DERRICK MAHONEY MD Ketorolac Injection (Toradol Injection) (11/04/22 18:21) Ct Head Wo (11/04/22 18:21) Diltiazem Cd 24 Hr Capsule (Cardizem Cd (11/04/22 19:45) Albuterol/Ipra Inhalation Soln (Duoneb I (11/04/22 19:45) Dexamethasone Injection (Decadron Inje (11/04/22 19:45) Svn Small Volume Nebulizer (11/04/22 19:37) Apixaban Tablet (Eliquis Tablet) (11/04/22 19:45) Ed Admission (Communication) (11/04/22 19:45) (DERRICK MAHONEY MD) Medications Given in ED Current Medications Medications Dose Ordered Sig/Michael Route Start Time Stop Time Status Last Admin Dose Admin Diltiazem HCl 5 mg ONCE ONCE IVP 11/04/22 17:30 11/04/22 17:31 DC 11/04/22 17:38 5 MG Fentanyl Citrate 25 mcg ONCE ONCE IVP 11/04/22 17:30 11/04/22 17:31 DC 11/04/22 17:45 25 MCG Lorazepam 0.5 mg ONCE ONCE IVP 11/04/22 17:30 11/04/22 17:31 DC 11/04/22 17:41 0.5 MG (DERRICK MAHONEY MD) Vital Signs/I&O 11/04/22 11/04/22 11/04/22 17:12 17:38 17:55 Pulse 97 101 B/P (MAP) 181/95 140/115 Pulse Ox 93 O2 Delivery Nasal Cannula O2 Flow Rate 6.00 (DERRICK MAHONEY MD) Blood Pressure Mean: 123 Progress Progress Note : Time: 18:26 Progress Note Patient was interviewed and examined upon arrival. Report was received from EMS and patient. She was found to be in atrial fibrillation with RVR. Cardizem bolus of 5 mg was administered followed by a Cardizem drip at 10 mg/h. Patient was adamant that she be a DNR, and a DNR order was entered for her. Fentanyl 25 mcg IV was administered for headache and chest pain. Ativan 0.5 mg IV was given for anxiety. EKG was reviewed and interpreted by me. There was no ischemic ST elevation to suggest STEMI. Labs were reviewed and interpreted by me in their entirety. CBC was unremarkable except for mild elevation in WBC. Chemistry was relatively unremarkable except for mild elevation in BNP and a CO2 of 17. Troponin was negative. INR was 1.2. Chest x-ray report was reviewed. There appeared to be a component of interstitial edema. See report below: Care of this patient is being transitioned to Dr. Mahoney at this time for shift change. Verbal report was delivered. (RODRIGUEZ AVILA MD) Progress Note : Progress Note I have assumed care of the patient from Dr. Avila. I have reevaluated the patient. Patient reports that she had actually gone to the store today prior to the start of event. She is chronically on oxygen at 3 L but states that she has been told that she can go up more if needed. She reports that she keeps it at 3 L because she does not want to get used to higher oxygen. She went to the store with her oxygen bottle because the portable oxygen does not have good batteries. She had a difficult time lifting the oxygen bottle into the cart but was able to do that and then did her shopping. Afterwards she filled up her car with gas but noted that she was getting quite short of breath and that she was starting to get a headache. She was able to make it home and thought that she would just rest in a recliner when she noted that she was feeling pounding headache and knew that her blood pressure was up and she noted that her oxygen was 73. She did call EMS. She normally takes albuterol MDI 4 times daily. She did get 1 nebulizer treatment by EMS and that did help her breathing a little bit. She is currently requiring increased oxygen via oxy mask at 10 L to keep O2 saturation 96-97. We will start to titrate that down. She does have atrial fibrillation on the monitor and is on Cardizem drip but heart rate now is 80s to 90s with occasionally heart rate greater than 100. She is still complaining of a headache. I have ordered CT of the head. We will consider Toradol IV for pain control. Her main concern is her brother had brain cancer last year and she is worried she has that now. She states everybody in her family has of cancer. I did review labs and EKG and agree with above. I have reviewed the chest x-ray and she does have enlarged cardiac silhouette without infiltrates on my interpretation and I have reviewed radiology report which agrees. Patient did confirm DNR status which has been ordered. Monitor patient. Differential diagnosis includes A-fib with RVR, cardiac event, intracranial mass or hemorrhage, hypoxia 1919: CT head complete and no obvious intracranial hemorrhage or mass noted on my interpretation. Pending radiology report. We will proceed with Toradol. 1946: Patient still requiring high flow oxygen and is now in sinus rhythm on monitor. We will initiate Cardizem [address] version. Oxygen titrated down to 70 L via OxyMask. We will do a DuoNeb and I will give Decadron 10 mg IV. She will get her nighttime dose of Eliquis now. I have discussed the case with Dr. Mariscal, hospitalist on-call. She accepts patient for admission, observation status we will continue to work on the oxygen and COPD concerns. Discussed the case with Dr. Thomas, patient's primary event coordinator. He is on- call this weekend. He will see her and agrees with the addition of Cardizem CD dose now and he will see her and make recommendations as needed. This was discussed with patient and family and they agree with plan. Patient to be admitted to cardiac stepdown. (DERRICK MAHONEY MD) Diagnostic Imaging Diagonstic Imaging: Xray Plain Films/CT/US/NM/MRI: chest Comments NAME: [facility] REC#: [id number] PT STATUS: REG ER : 1945 PHYSICIAN: RODRIGUEZ AVILA MD ADMIT DATE: 11/04/22/ER Signed Date of Exam:11/04/22 CHEST 1 VIEW, AP/PA ONLY INDICATION: Chest pain. COMPARISON: 11/12/2020. FINDINGS: There is enlargement of the cardiac silhouette with some slight prominence of the central interstitial markings suggesting a component of mild interstitial edema. There is no dense airspace consolidation to suggest an alveolar pneumonia. There is no large effusion or pneumothorax. IMPRESSION: Enlarged cardiac silhouette with central interstitial prominence, slightly increased from prior examination suggesting a component of mild interstitial edema. Dictated by: Dictated on workstation # [id number] Dict: 11/04/22 175 Trans: 11/04/221816 AS6 [id number] Interpreted by: KARISHMA MANZANARES MD Electronically signed by: KARISHMA MANZANARES MD 11/04/221816 (RODRIGUEZ AVILA MD) Reviewed: Reviewed by Me Diagonstic Imaging: CT Plain Films/CT/US/NM/MRI: head Comments [facility] [place] NAME[facility] REC[facility] [id number] PT STATUS: REG ER : 1945 PHYSICIAN: DERRICK MAHONEY MD ADMIT DATE: 11/04/22/ER Signed Date of Exam:11/04/22 CT HEAD WO PROCEDURE: CT head without contrast. TECHNIQUE: Multiple contiguous axial images were obtained through the brain without the use of intravenous contrast. Auto Exposure Controls were utilized during the CT exam to meet ALARA standards for radiation dose reduction. INDICATION: Worsening headaches. COMPARISON: 03/24/2015. FINDINGS: Age-related volume loss is unchanged. There are also stable microvascular changes in the deep white matter. There is no new territorial loss of marina-white differentiation or edema. There is no mass effect. There is no hydrocephalus. There is no acute hemorrhage. There is no extra-axial collection. The basilar cisterns are patent. The mastoid air cells are clear. Paranasal sinuses clear where visualized. Orbital contents are normal. There is no calvarial abnormality. IMPRESSION: 1. Age-related volume loss with background microvascular changes within the white matter. 2. No CT evidence of an acute intracranial abnormality. Dictated by: Dictated on workstation # [id number] Dict: 11/04/221908 Trans: 11/04/221933 ON LICENSE OF [facility] [id number] Interpreted by: KARISHMA MANZANARES MD Electronically signed by: KARISHMA MANZANARES MD 11/04/221933 Reviewed: Reviewed by Me (DERRICK MAHONEY MD) Departure Communication (Admissions) Time/Spoke to Admitting Phy: 19:40 Time/Spoke to Consulting Phy: 19:47 (DERRICK MAHONEY MD) Impression Primary Impression: COPD exacerbation Additional Impressions: Atrial fibrillation with RVR Chest pain Qualified Codes: R07.9 - Chest pain, unspecified Anxiety Disposition: ADMITTED INPATIENT Condition: Stable Admissions Decision to Admit Reason: Admit from ER (General) Decision to Admit/Date: November 04, 2022 Time/Decision to Admit Time: 19:40 (DERRICK MAHONEY MD) Departure-Patient Inst. Referrals: TORSTEN AQUINO DO (PCP/Family) Primary Care Physician RODRIGUEZ AVILA MD November 04, 2022 17:52 DERRICK MAHONEY MD November 04, 2022 18:41
[2022-11-04] MEDS: dilTIAZem DRIP PRE-MIX 125 ML IV SCH (17:55)
--- NOTE | 2022-11-04 17:55 | Diagnostic Imaging Report ---
INDICATION: Chest pain. COMPARISON: 11/12/2020. FINDINGS: There is enlargement of the cardiac silhouette with some slight prominence of the central interstitial markings suggesting a component of mild interstitial edema. There is no dense airspace consolidation to suggest an alveolar pneumonia. There is no large effusion or pneumothorax. IMPRESSION: Enlarged cardiac silhouette with central interstitial prominence, slightly increased from prior examination suggesting a component of mild interstitial edema. Dictated by: Dictated on workstation # [id number]
[2022-11-04] MEDS ORDERED: KETOROLAC 30 MG/ML VIAL IVP STA (18:21)
--- NOTE | 2022-11-04 19:18 | Diagnostic Imaging Report ---
PROCEDURE: CT head without contrast. TECHNIQUE: Multiple contiguous axial images were obtained through the brain without the use of intravenous contrast. Auto Exposure Controls were utilized during the CT exam to meet ALARA standards for radiation dose reduction. INDICATION: Worsening headaches. COMPARISON: 03/24/2015. FINDINGS: Age-related volume loss is unchanged. There are also stable microvascular changes in the deep white matter. There is no new territorial loss of marina-white differentiation or edema. There is no mass effect. There is no hydrocephalus. There is no acute hemorrhage. There is no extra-axial collection. The basilar cisterns are patent. The mastoid air cells are clear. Paranasal sinuses clear where visualized. Orbital contents are normal. There is no calvarial abnormality. IMPRESSION: 1. Age-related volume loss with background microvascular changes within the white matter. 2. No CT evidence of an acute intracranial abnormality. Dictated by: Dictated on workstation # [id number]
[2022-11-04] MEDS ORDERED: APIXABAN 5 MG (ELIQUIS) TABLET PO ONE (19:45)
[2022-11-04] MEDS ORDERED: RT-ALBUTEROL/IPRATROPIUM 3 ML (DUONEB) VIAL INH ONE (19:45)
[2022-11-04] MEDS ORDERED: dilTIAZem120 MG (CARDIZEM CD) CAP PO ONE (19:45)
[2022-11-04 21:10] VITALS: BP 161/76
[2022-11-04] MEDS ORDERED: MELATONIN 3 MG TABLET PO PRN (21:15)
[2022-11-04] MEDS ORDERED: MILK OF MAGNESIA 400 MG/5 ML 30 ML UDC PO PRN (21:15)
[2022-11-04] MEDS ORDERED: ANTACID SUSP 30 ML UDC (MYLANTA) PO PRN (21:15)
[2022-11-04] MEDS ORDERED: ONDANSETRON 4 MG/2 ML (SDV) Z0FRAN IV PRN ×2 (21:15)
[2022-11-04 21:30] VITALS: BP 136/124
[2022-11-04 21:43] VITALS: BP 181/95
[2022-11-04 21:45] VITALS: BP 151/104
[2022-11-04 22:00] VITALS: BP 155/115
[2022-11-04] MEDS ORDERED: RT-ALBUTEROL/IPRATROPIUM 3 ML (DUONEB) VIAL INH PRN (22:00)
[2022-11-04] MEDS: ACETAMINOPHEN 500 MG TAB (TYLENOL) PO PRN (22:13)
--- NOTE | 2022-11-04 22:36 | Tele-ICU Consult ---
Progress Note 77 yo F new admited for Afib with RVR on cardizem gtt. Patient awake, alert on video assessment. Not in distress. HR controlled in 90s. Hypertensive. Patient has DNR in place. [employer] on consult. Defer plan for AC to [employer], possible intervention planned. Diagnosis: Arrhythmia A total of _ 8 _ minutes of critical care time was devoted to this patient, including reviewing this patient's available data, including medical history, events of note and test results. This was required to treat and/or prevent further deterioration of critical care conditions ( as above ). Service provided to a patient admitted to ICU bed via interactive E-CARE system with real-time audio and video telecommunications from [facility] tele- ICU hub located in [place], [place] WILL KAY MD November 04, 2022 22:36
[2022-11-04] MEDS: RT-ALBUTEROL/IPRATROPIUM 3 ML (DUONEB) VIAL INH SCH (22:40)
[2022-11-04 23:00] VITALS: BP 139/64
[2022-11-05] VITALS: BP 139/64
[2022-11-05] MEDS: RT-ALBUTEROL/IPRATROPIUM 3 ML (DUONEB) VIAL INH SCH ×3 (02:32→11:38)
[2022-11-05 04:00] VITALS: BP 135/61
[2022-11-05 04:15] LABS: HEMATOCRIT 43 % (35-52); HEMOGLOBIN 14.4 g/dL (11.5-16.0); MEAN CORPUSCULAR HEMOGLOBIN 30 pg (25-34); MEAN CORPUSCULAR HGB CONC 33 g/dL (32-36); MEAN CORPUSCULAR VOLUME 90 fL (80-99); MEAN PLATELET VOLUME 11.1 fL (9.0-12.2); PLATELET COUNT 260 10^3/uL (130-400); WHITE BLOOD COUNT 8.1 10^3/uL (4.3-11.0)
[2022-11-05 04:35] LABS: POTASSIUM 4.6 MMOL/L (3.6-5.0)
[2022-11-05 04:37] LABS: CALCIUM 9.7 MG/DL (8.5-10.1)
[2022-11-05 04:41] LABS: CREATININE SERUM 0.93 MG/DL (0.60-1.30)
[2022-11-05] MEDS: dilTIAZem DRIP PRE-MIX 125 ML IV SCH (06:08)
[2022-11-05] MEDS: ACETAMINOPHEN 500 MG TAB (TYLENOL) PO PRN (06:08)
[2022-11-05] MEDS: inSUlin ASPART (NovoLOG) 1 UNIT/0.01 ML (CHARGE PER UNIT) SC SCH ×2 (06:20→10:48)
[2022-11-05] MEDS ORDERED: predniSONE 20 MG TAB PO SCH (07:00)
[2022-11-05 08:00] VITALS: BP 128/88
[2022-11-05] MEDS ORDERED: dilTIAZem120 MG (CARDIZEM CD) CAP PO SCH (09:00)
--- NOTE | 2022-11-05 09:30 | History & Physical-Hospitalist ---
History of Present Illness HPI/Chief Complaint Pt Is a 77-year-old female with past medical history of chronic respiratory failure, COPD, atrial fibrillation, diastolic heart failure, coronary artery disease, hypertension who presented to the emergency department due to shortness of breath. She normally has a caregiver who does her grocery shopping for her but she was unavailable yesterday so the patient went to a local grocery store herself and became quite short of breath. She called EMS upon her return to her house and was hoping that they can evaluate her and should be able to stay at home. Because of her respiratory status and heart rate they recommended her come to the ER for evaluation. She was found to be in atrial fibrillation with rapid ventricular rate on arrival to the ER and was quite hypertensive. She also seemed short of breath to them. She was placed on a Cardizem drip and her heart rate improved so she was titrated off and given oral Cardizem. She was still requiring 6 L of oxygen and so was admitted for COPD exacerbation. This morning when I entered room she stated that she would like to go home "no ifs, ands or buts about it." We discussed that with her heart rate still being in the 120s to 130s this did not seem medically appropriate. She stated to me multiple times that she just does not want to be in the hospital she wants to be at home. She states that she is not suicidal but she has not scared of and is ready for it if it is her time. We discussed hospice and at first she was quite taken her back and resistant to this idea though after speaking to the nurse she is in agreement with hospice and would like to meet with them in hopes of getting home. I did call and speak with her power of principal law clerk who is a local nurse known to me through work and the pandemic, Keyshawn, who is in agreement with a hospice evaluation. Source: patient Date Seen 11/05/22 Time Seen by a Provider: 09:25 Attending Physician Kurt Amador DO PCP Admitting Physician: Frank Mariscal MD Attending Physician: Frank Mariscal MD Referring Physician Date of Admission November 04, 2022 at 8:57 pm Home Medications & Allergies Home Medications Reviewed patient Home Medication Reconciliation performed by pharmacy medication reconciliations sand technician and/or nursing. Patients Allergies have been reviewed. Allergies Allergies Coded Allergies morphine (Verified Allergy, Unknown, 08/05/08) Past Rmpgkza-Yjzrmi-Kbvveb Hx Patient Social History Tobacco Use?: No Substance use?: No Alcohol Use?: No Pt feels they are or have been: No Immunizations Up To Date Date of Influenza Vaccine: Apr 15, 2020 First/Initial COVID19 Vaccinat: STATES HAS BOTH VACCINES FOR COVID Second COVID19 Vaccination Anup: STATES HAS BOTH VACCINES FOR COVID Tetanus Booster (TDap): Unknown Date of Pneumonia Vaccine: Mar 19, 2015 Current Status status: No status: No Advance Directives: Yes Advance Directive Location: Home Primary Language: Mozambican Preferred Spoken Language: Mozambican Is interpretation needed?: No Sensory deficits: Vision impairment Implanted or Applied Medical D: Stents Past Medical History Surgeries: Adenoidectomy, Appendectomy, Coronary Stent, Eye Surgery, Gallbladder, Hysterectomy, Tonsillectomy Pneumonia, COPD Atrial Fibrillation, Coronary Artery Disease, High Cholesterol, Hypertension Colitis, Diverticulosis Arthritis Anxiety, Depression Blood Disorders: No Family Medical History Cardiovascular disease 19 FATHER G8 BROTHER Diabetes mellitus G8 SISTER G8 SISTER Hypercholesterolemia 19 FATHER 19 MOTHER G8 BROTHER G8 SISTER G8 SISTER Hypertension 19 FATHER 19 MOTHER G8 BROTHER G8 SISTER G8 SISTER Myocardial infarction 19 FATHER G8 BROTHER Neoplasm G8 SISTER (SPINAL CANCER ) No Pertinent Family Hx Review of Systems Constitutional: see HPI Physical Exam Physical Exam Vital Signs Vital Signs - First Documented 11/04/22 11/04/22 11/04/22 17:12 17:38 21:10 Temp 36.3 Pulse 97 Resp 18 B/P (MAP) 181/95 Pulse Ox 93 O2 Delivery Nasal Cannula O2 Flow Rate 6.00 Capillary Refill : Height, Weight, BMI Height: 5'4.00" Weight: 203lbs. 1.0oz. 92.590783wy; 31.43 BMI Method:Stated General Appearance: Anxious, Chronically ill, Other (appears short of breath) Respiratory: No Accessory Muscle Use; No Wheezing; Other (mild conversational dyspnea) Cardiovascular: Irregularly Irregular, Tachycardia Gastrointestinal: Normal Bowel Sounds, Soft Extremity: Normal Capillary Refill, No Calf Tenderness, No Pedal Edema Neurologic/Psychiatric: Alert, Oriented x3, Normal Mood/Affect Results Results/Procedures Labs Laboratory Tests 11/04/22 17:15 11/05/22 03:32 Patient resulted labs reviewed. Imaging: Reviewed Imaging Report Imaging [facility]. [place], [place] NAME: DC [facility]PT[facility] REC#: [id number] PT STATUS: REG ER : 1945 PHYSICIAN: RODRIGUEZ RODRIGES MD ADMIT DATE: 11/04/22/ER Signed Date of Exam:11/04/22 CHEST 1 VIEW, AP/PA ONLY INDICATION: Chest pain. COMPARISON: 11/12/2020. FINDINGS: There is enlargement of the cardiac silhouette with some slight prominence of the central interstitial markings suggesting a component of mild interstitial edema. There is no dense airspace consolidation to suggest an alveolar pneumonia. There is no large effusion or pneumothorax. IMPRESSION: Enlarged cardiac silhouette with central interstitial prominence, slightly increased from prior examination suggesting a component of mild interstitial edema. Dictated by: Dictated on workstation # [id number] Dict: 11/04/22 175 Trans: 11/04/221816 AS6 [id number] Interpreted by: KARISHMA MANZANARES MD Electronically signed by: KARISHMA MANZANARES MD 11/04/221816 Assessment/Plan Admission Diagnosis COPD Exacerbation Admission Status: Observation Assessment and Plan COPD Exacerbation Chronic Respiratory Failure Atrial Fibrillation dCHF Continue steroids Continue abraham Caridology consulted Patient now agreeable to hospice and seems to be an appropriate candidate with her COPD and escalating oxygen need complicated by her A fib and CHF Called and spoke with her POA Tessa Stover who is agreeable with hospice referral as well, referral placed to [facility], awaiting their review Hopefully DC home today with hospice is able FRANK MARISCAL MD November 05, 2022 9:30 am
[2022-11-05] MEDS ORDERED: dilTIAZem120 MG (CARDIZEM CD) CAP PO NR (09:45)
[2022-11-05] MEDS ORDERED: APIXABAN 5 MG (ELIQUIS) TABLET PO NR (09:45)
[2022-11-05] MEDS ORDERED: PRD20T PO (10:36)
[2022-11-05] MEDS ORDERED: DILT240C91 PO (10:36)
--- NOTE | 2022-11-05 10:36 | Discharge Inst-Simple/Standard ---
Discharge Inst-Standard Discharge Medications New, Converted or Re-Newed RX: Transmitted to Pharmacy Patient Instructions/Follow Up Plan of Care/Instructions/FU: Please continue to take your medications as written. Please follow up with your primary care doctor to follow up this hospital stay. Activity as Tolerated: Yes Discharge Diet: No Restrictions Return to The Hospital For: Chest pain, shortness of breath, fever, weakness, if you feel you are getting worse. FRANK NYE MD November 05, 2022 10:36 am
--- NOTE | 2022-11-05 11:45 | Consultation-Cardiology ---
HPI-Cardiology Cardiology Consultation: Date of Consultation 11/05/22 Time Seen by a Provider: 09:15 Date of Admission Attending Physician Torsten Aquino DO Admitting Physician Admitting Physician: Frank Nye MD Attending Physician: Frank Nye MD Consulting Physician NEHEMIAH BLAIR MD, MA, FACP, FACC, FSCAI, CCDS Physician requesting consult: Dr Nye HPI: Chief Complaint: Reason for Card consult: A Fib with RVR 77 yo woman hospitalized last night to Dr Nye's svce with increasing shortness of breath and also found to have A Fib with RVR. Has chronic A Fib. Denies cp or palp or syncope. Today, feels that shortness of breath is back to usual baseline. Denies swelling. Has chronic gen weakness and poor stamina. Review of Systems-Cardiology Review of Systems Constitutional: malaise, tiredness; No weight loss, No weight gain Eyes: No vision change Ears/Nose/Throat: No ear discharge, No nasal drainage, No recent hearing loss Respiratory: As described under HPI Cardiovascular: As described under HPI Gastrointestinal: No constipation, No nausea, No vomiting Genitourinary: No dysuria, No hematuria, No urine frequency changes Musculoskeletal: back pain (chronic) Psychiatric/Neurological: No seizure, No focal weakness, No syncope Hematologic: No bleeding abnormalities TSM-Mzmvhc-Vilfcu Hx Patient Social History Former smoker/When Quit: Mar 24, 2005 Have you traveled recently?: No Alcohol Use?: No Pt feels they are or have been: No Immunizations Up To Date Tetanus Booster (TDap): Unknown Date of Pneumonia Vaccine: Mar 19, 2015 Date of Influenza Vaccine: Apr 15, 2020 Past Medical History PMH As described under Assessment. Family Medical History Family History: Cardiovascular disease 19 FATHER G8 BROTHER Diabetes mellitus G8 SISTER G8 SISTER Hypercholesterolemia 19 FATHER 19 MOTHER G8 BROTHER G8 SISTER G8 SISTER Hypertension 19 FATHER 19 MOTHER G8 BROTHER G8 SISTER G8 SISTER Myocardial infarction 19 FATHER G8 BROTHER Neoplasm G8 SISTER (SPINAL CANCER ) Allergies and Home Medications Allergies Coded Allergies: morphine (Verified Allergy, Unknown, 08/05/08) Patient Home Medication List Home Medication List Reviewed: Yes Albuterol/Ipratropium (Combivent Respimat Inhal Briggs) 4 Gm Aero, 1 PUFF INH TID PRN for SHORTNESS OF BREATH, (Reported) Entered as Reported by: BRIAN VELOZ on 07/05/16 1528 Apixaban (Eliquis) 5 Mg Tablet, 5 MG PO BID Prescribed by: TORSTEN AQUINO on 07/07/16 0805 Aspirin (Aspirin) 81 Mg Tab.chew, 81 MG PO DAILY, (Reported) Entered as Reported by: SUDHEER AGUAYO on 12/01/20 0743 Diazepam (Diazepam 5 Mg) 5 Mg Tablet, 2.5 MG PO HS, (Reported) Entered as Reported by: FLORIAN GREWAL on 01/13/12 1717 Diltiazem HCl (Diltiazem 24Hr Cd) 180 Mg Cap.er.24h, 180 MG PO DAILY Prescribed by: MARCOS CAVAZOS on 07/07/16 0819 Diltiazem HCl (Diltiazem 24Hr ER) 240 Mg Cap.er.24h, 240 MG PO DAILY Prescribed by: FRANK NYE on 11/05/22 1036 Furosemide (Lasix) 40 Mg Tablet, 1 MG PO DAILY Prescribed by: TORSTEN AQUINO on 07/07/16 0805 Garlic (Garlic) 1 Each Capsule, 1 CAP PO DAILY, (Reported) Entered as Reported by: BRIAN VELOZ on 03/24/15 1400 Metoprolol Succinate (Toprol Xl) 100 Mg Tab.er.24h, 100 MG PO DAILY, (Reported) Entered as Reported by: SUDHEER AGUAYO on 12/01/20 0743 Multivit with Calcium,Iron,Min (Multiple Vitamins For Women) 1 Each Tablet, 1 EACH PO DAILY, (Reported) Entered as Reported by: SUDHEER AGUAYO on 12/01/20 0743 Nitroglycerin (Nitrostat) 0.4 Mg Subl, 0.4 MG SL UD PRN for CHEST PAIN, (Reported) Entered as Reported by: CHAITANYA DUMONT on 08/05/08 1509 Wells-3S/Dha/Epa/Fish Oil (Fish Oil 1,200 Mg Softgel) 1 Each Capsule, 1,200 MG PO BID, (Reported) Entered as Reported by: JAY SIMMONS on 10/27/14 1043 Prednisone (Prednisone) 20 Mg Tab, 40 MG PO DAILY@0700 Prescribed by: FRANK NYE on 11/05/22 1036 Rosuvastatin Calcium (Rosuvastatin Calcium) 10 Mg Tablet, 10 MG PO HS, (Reported) Entered as Reported by: SUDHEER AGUAYO on 12/01/20 0743 Physical Exam-Cardiology Physical Exam Vital Signs/I&O 11/05/22 11/05/22 11/05/22 11/05/22 00:00 01:00 02:32 04:00 Temp 36.2 Pulse 93 107 75 Resp 24 35 B/P (MAP) 139/64 (89) 135/61 (85) Pulse Ox 98 94 94 O2 Delivery Nasal Cannula Nasal Cannula Nasal Cannula O2 Flow Rate 5.00 5.00 11/05/22 11/05/22 11/05/22 11/05/22 04:00 07:00 07:11 08:00 Temp 36.1 36.0 Pulse 129 103 Resp 15 B/P (MAP) 128/88 (101) Pulse Ox 95 97 O2 Delivery Nasal Cannula Nasal Cannula O2 Flow Rate 5.00 11/05/22 08:30 Pulse Ox 95 O2 Delivery Nasal Cannula O2 Flow Rate 3.00 11/04/22 23:59 Intake Total 220.4 ml Output Total 0 ml Balance 220.4 ml Capillary Refill : Constitutional: AAO x 3, well-developed, well-nourished HEENT: EOMI, hearing is well preserved; No xanthelasmas are seen Neck: carotid pulses are 2 + bilaterally, with good upstrokes Respiratory: No accessory muscle use; chest expansion is symmetric, chest is bilaterally symmetric, other (scattered rhonchi, generally diminshed air entry (mildly diminished) and prolonged expiratory phase) Cardiovascular: S1 and S2, systolic murmur (soft RESHMA at card base) Gastrointestinal: No tender; soft; No guarding, No rebound; audible bowel sounds Extremities: No clubbing, No cyanosis, No significant edema Neurologic/Psychiatric: oriented x 3, other (moves all limbs equally) Skin: normal color, warm/dry; No cyanosis, No rash on exposed areas, No ulcerations on exposed areas Data Review Labs Laboratory Tests 11/04/22 17:15: White Blood Count 13.4H, Red Blood Count 4.92, Hemoglobin 14.9, Hematocrit 44, Mean Corpuscular Volume 90, Mean Corpuscular Hemoglobin 30, Mean Corpuscular Hemoglobin Concent 34, Red Cell Distribution Width 13.0, Platelet Count 281, Mean Platelet Volume 10.9, Immature Granulocyte % (Auto) 0, Neutrophils (%) (Auto) 72, Lymphocytes (%) (Auto) 20, Monocytes (%) (Auto) 7, Eosinophils (%) (Auto) 1, Basophils (%) (Auto) 0, Neutrophils # (Auto) 9.6H, Lymphocytes # (Auto) 2.7, Monocytes # (Auto) 0.9, Eosinophils # (Auto) 0.1, Basophils # (Auto) 0.1, Immature Granulocyte # (Auto) 0.1, Prothrombin Time 15.7H, INR Comment 1.2, Activated Partial Thromboplast Time 41H, Sodium Level 140, Potassium Level 4.0, Chloride Level 108H, Carbon Dioxide Level 17L, Anion Gap 15H, Blood Urea Nitrogen 16, Creatinine 0.80, Estimat Glomerular Filtration Rate 75, BUN/Creatinine Ratio 20, Glucose Level 112H, Calcium Level 9.6, Corrected Calcium 9.6, Magnesium Level 1.7, Total Bilirubin 0.4, Aspartate Amino Transf (AST/SGOT) 19, Alanine Aminotransferase (ALT/SGPT) 13, Alkaline Phosphatase 74, Myoglobin 40.9, Troponin I < 0.028, B-Type Natriuretic Peptide 321.7H, Total Pr otein 7.1, Albumin 4.0 11/05/22 03:32: White Blood Count 8.1, Red Blood Count 4.82, Hemoglobin 14.4, Hematocrit 43, Mean Corpuscular Volume 90, Mean Corpuscular Hemoglobin 30, Mean Corpuscular Hemoglobin Concent 33, Red Cell Distribution Width 13.0, Platelet Count 260, Mean Platelet Volume 11.1, Sodium Level 139, Potassium Level 4.6, Chloride Level 108H, Carbon Dioxide Level 18L, Anion Gap 13, Blood Urea Nitrogen 18, Creatinine 0.93, Estimat Glomerular Filtration Rate 63, BUN/Creatinine Ratio 19, Glucose Level 188H, Calcium Level 9.7, Triglycerides Level 52, Cholesterol Level 129, LDL Cholesterol Direct 62, VLDL Cholesterol 10, HDL Cholesterol 49 11/05/22 10:39: Glucometer 237H Laboratory Tests 11/04/22 17:15 11/05/22 03:32 A/P-Cardiology Assessment/Admission Diagnosis Increase in chronic dyspnea, probably due to ac exacerbation of COPD - managed by the Hospitalist florence PAF with RVR - first diagnosed in Jun 2016 - chronic stroke prophylaxis with apixaban Severe pulm htn of undetermined etiology - Echo of 02/21/22 showed LVEF 60-65%, mod biatrial enlargement, trial AI, and PASP 75-80 mmHg BOO, chronic, intermittent - following with PCP Coronary artery disease - Cardiac catheterization of 03/24/15 showed severe instent restenosis in an extensively stented RCA (prox to distal, is known to have Multi-Link 2.75x18, 2.5x23, 2.5x 28 overlapping stents). To this successful balloon angioplasty was carried out on 03/24/15 with reduction of stenosis to less than 30%. She also has a history of drug-eluting stenting of an obtuse marginal branch of the left circumflex with Taxus Atom 2.25 x 8 mm stent and Multi-Link 2.5x8 stenting of distal LCX, which were found to be patent. There was mod elev of LVEDP and LVEF was 70% - Cardiac cath 12/01/20: Coronary artery disease, moderate. There are patent stents in the proximal and distal portions of the left circumflex (proximally Taxus Atom 2.25 x 8 mm and distally Multi-Link 2.5 x 8 mm). The right coronary artery is extensively stented and there is no more than 50% in-stent restenosis. The stents are known to be, from proximal to distal, Multi-Link 2.75 x 18, 2.5 x 23, 2.5 x 28, overlapping stents). Normal global left ventricular systolic function with ejection fraction of 65 to 70%. Elevated left ventricular end- diastolic pressure. Hypertension - essential and white-coat H/O tobaccoism - quit in 2004 Intermittent anxiety Hyperlipidemia - being treated with atorvastatin Impaired fasting glucose - managed by PCP Carotid dz - Mod carotid arterial disease per u/s 12-23-21 Diverticulitis - seen on colonoscopy by Dr. Sanchez December 2014 COPD - on continous supple oxygen, managed by Dr Aquino At time of office visit on 12-23-21 she requested DNR status Discussion and Recomendations * Vent response to A Fib is better controlled after increasing oral diltiazem. We recommending increasing daily dose to Cardizem CD 240 mg daily * Continue apixaban 5 mg po bid for vent rate control * We discussed other treatment options for treatment of A Fib, including ablation. She is considering her options and will f/u on an oupt basis * I discussed her case with Dr Nye on the phone NEHEMIAH BLAIR MD FACP FAC CCDS November 05, 2022 11:45
[2022-11-05 11:48] VITALS: BP 156/71
[2022-11-05 14:20] VITALS: BP 156/71
[2022-11-05] MEDS ORDERED: APIXABAN 5 MG (ELIQUIS) TABLET PO SCH (21:00)
== END 2022-11-05 14:20 | disposition home or self-care (01) ==
LOC: EDUNIT# 17:12 → ER 17:13 → ICU 20:57
PROVIDERS: ADMIT Family Medicine; ATTEND Family Medicine
DX: J44.1 Chronic obstructive pulmonary disease with (acute) exacerbation (principal); I48.0 Paroxysmal atrial fibrillation; J96.90 Respiratory failure, unspecified, unspecified whether with hypoxia or hypercapnia; R51.9 Headache, unspecified; I11.0 Hypertensive heart disease with heart failure; I50.9 Heart failure, unspecified; I25.10 Atherosclerotic heart disease of native coronary artery without angina pectoris; I27.20 Pulmonary hypertension, unspecified; E78.5 Hyperlipidemia, unspecified; F41.9 Anxiety disorder, unspecified; Z87.891 Personal history of nicotine dependence; Z79.899 Other long term (current) drug therapy; Z95.5 Presence of coronary angioplasty implant and graft; Z79.01 Long term (current) use of anticoagulants
CPT/HCPCS: 70450; 71045; 80048; 80053; 80061; 82947; 83735; 83874; 83880; 84484; 85025; 85027; 85610; 85730; 93005; 93041; 94640 ×2; 99284; G0378; 36415